=== PATIENT | female | born 1950 | race Caucasian/White ===

== ENCOUNTER 2020-02-06 08:10 | Outpatient (CLI) | payer MEDICARE, SELFPAY ==
--- NOTE | ~2020-02-06 | MM_ITS ---
EXAMINATION: MM screening naren BI w jose carlos HISTORY: Screening TECHNIQUE: Craniocaudal and mediolateral oblique 3-D tomosynthesis images were obtained and synthetic 2-D images were generated. CAD analysis was submitted and interpreted. COMPARISON: 10/18/2018 BREAST PARENCHYMAL COMPOSITION: There are scattered areas of fibroglandular density. FINDINGS: There is no evidence of suspicious mass, calcification, or architectural distortion to sugg est malignancy in either breast. There has been no suspicious interval change. IMPRESSION: 1. No mammographic evidence of malignancy. 2. Recommend routine screening mammography in one year. BI-RADS Category 1: Negative Reviewed, dictated and finalized at location A.
== END 2020-02-06 08:11 | disposition home or self-care (01) ==
LOC: ANHIMG 08:13
PROVIDERS: PCP Family Medicine; Visit Provider Obstetrics & Gynecology
DX: Z12.31 Encounter for screening mammogram for malignant neoplasm of breast (principal)
CPT/HCPCS: 77063; 77067

== ENCOUNTER 2021-01-13 09:47 | Outpatient (RCR) | payer MEDICARE, SELFPAY ==
--- NOTE | 2021-01-13 11:02 | PTOPEVAL ---
Thank you for referring Cyndee Salazar to [facility].? The patient is scheduled to be seen for therapy? ____x/week for ___ weeks. Please review, sign, date and return this plan of care REID. I agree with and certify that the following plan of care is medically necessary. Referring Physician Date Admitting Provider: Attending Provider: Julian Stewart, Referring Provider: *PT Outpatient Evaluation Start: 01/13/21 10:09 Freq: Status: Active Protocol: Document 01/13/21 10:10 [facility] (Rec: 01/13/21 11:01 [facility] [email or web address]) Therapy Assessment Status Assessment Status Assessment Status Evaluation Evaluation Information Problem Diagnosis R shoulder pain, rotator cuff tear Onset 01/06/21 Additional Evaluation Detail quick dash = 43% functionally declined Subjective Information patient reports she is coming Query Text:As Reported By Patient/ to therapy for pain in the R Family shoulder. she reports she has had pain in the shoulder for years. she reports she has difficulty sleeping at night. she reports she has arthritis and a rotator cuff tear. she reports she is trying to avoid surgery as long as she can, but reports she thinks she is going to eventually need in on the R shoulder. she reports she has difficulty lifting more than 10lbs with the R arm . she reports she has difficulty reaching behind her back to wash her back and clasp/unclasp her bra. Prior Level of Function Comments Additional Prior Level of Function patient reports she has had Comments pain in the R shoulder since her original injury back in the early . she reports she has never had therapy for her R shoulder. Pain Assessment Timing of Pain Assessment Timing of Pain Assessment Assessment Pain Scale Pain Scale Used Numeric (1 - 10) Self Report Pain Assessment Right Shoulder(s) Reported Pain Level 0 Pain Frequency Chronic,Intermittent Greatest Pain Intensity 8 Pain Score Pain Score 0: Self Report Interventions Used Interventions Used By Clinicians Activity or ADL's,Education,
--- NOTE | 2021-02-18 10:52 | PTOPEVAL ---
Thank you for referring Cyndee Salazar to [facility].? The patient is scheduled to be seen for therapy? ____x/week for ___ weeks. Please review, sign, date and return this plan of care REID. I agree with and certify that the following plan of care is medically necessary. Referring Physician Date Admitting Provider: Attending Provider: Julian Stewart, Referring Provider: *PT Outpatient Evaluation Start: 01/13/21 10:09 Freq: Status: Active Protocol: Document 02/14/21 10:00 [facility] (Rec: 02/18/21 10:52 [facility] [email or web address]) Therapy Assessment Status Assessment Status Assessment Status Discharge Evaluation Information Problem Diagnosis R shoulder pain, rotator cuff tear Onset 01/06/21 Additional Evaluation Detail quick dash = 59% functionally declined Subjective Information patient reports she has been Query Text:As Reported By Patient/ completing therapy visits and Family doing her HEP at home. she reports she has noticed some improvements, but overall still has pain in the R shoulder. she reports she is having RTC surgery this spring . Pain Assessment Timing of Pain Assessment Timing of Pain Assessment Assessment Pain Scale Pain Scale Used Numeric (1 - 10) Self Report Pain Assessment Right Shoulder(s) Reported Pain Level 1 Greatest Pain Intensity 10 Pain Score Pain Score 1: Self Report Interventions Used Interventions Used By Clinicians Activity or ADL's,Education, Exercise Upper Extremity Range of Motion Scapular/ Shoulder Range of Motion Right Shoulder Flexion - Active 160 Shoulder Flexion - Passive 170 Shoulder Medial Rotation - Active 63 Shoulder Medial Rotation - Active functional reach to the R PSIS Query Text:Reach Behind the Back /buttock with the R hand. patient reports this is most difficult reach. Shoulder Lateral Rotation - Active 95 Shoulder Lateral Rotation - Active functional reach of the R hand Query Text:Reach Behind the Head to the lower cervical/upper thoracic spine with normal speed and no compensated shoulder or trunk posture. Upper Extremity Muscle Strength Testing Scapular/Shoulder Right Shoulder Flexion Strength 4 Good Shoulder Extension Strength 4+ Good + Shoulder Abduction Strength 4- Good - Shoulder Medial Rotation Strength 4+ Good + Shoulder Lateral Rotation Strength
== END 2021-02-14 16:03 | disposition home or self-care (01) ==
LOC: CHSPT 09:47
PROVIDERS: PCP Family Medicine; Visit Provider Orthopaedic Surgery
DX: M75.101 Unspecified rotator cuff tear or rupture of right shoulder, not specified as traumatic (principal)
CPT/HCPCS: 97014; 97110; 97161; G0283

== ENCOUNTER 2021-03-04 09:22 | Outpatient (CLI) | payer MEDICARE, SELFPAY ==
--- NOTE | ~2021-03-04 | MM_ITS ---
EXAMINATION: MM screening naren BI w jose carlos HISTORY: ........... TECHNIQUE: Craniocaudal and mediolateral oblique 3-D tomosynthesis images were obtained and synthetic 2-D images were generated. CAD analysis was submitted and interpreted. COMPARISON: No prior mammogram is available for comparison at this institution. BREAST PARENCHYMAL COMPOSITION: The breasts are almost entirely fatty. FINDINGS: There is no evidence of suspicious mass, calcification, or architectural distortion to sugg est malignancy in either breast. There has been no suspicious interval change. IMPRESSION: 1. No mammographic evidence of malignancy. 2. Recommend routine screening mammography in one year. BI-RADS Category 1: Negative Reviewed, dictated and finalized at location A. Y ASSISTANT
== END 2021-03-04 09:23 | disposition home or self-care (01) ==
PROVIDERS: PCP Family Medicine; Visit Provider Obstetrics & Gynecology
DX: Z12.31 Encounter for screening mammogram for malignant neoplasm of breast (principal)
CPT/HCPCS: 77063; 77067

== ENCOUNTER 2021-08-26 00:16 | Day surgery (SDC) | payer MEDICARE, SELFPAY ==
[2021-08-12 08:41] VITALS: BMI 38.0
[2021-08-26 08:25] VITALS: BP 121/69; PULSE 93; RESP 16; TEMP 36.4; O2SAT 97
[2021-08-26] MEDS: LACTATED RINGERS 1,000 ML 150 ML IV CONT (08:37)
--- NOTE | 2021-08-26 09:09 | WPDANESEPPF ---
Anes - Initial Pre Proc Eval Procedure: Operation Date: 08/26/21 09:30 Proposed Procedures p Screening Colonoscopy - Anjum Choe MD Date/Time: 08/26/21 09:09 Surgeon: Anjum Choe MD Pre Op Diagnosis: neoplasm screening Patient Data Age: 71 Gender: F Height: 1.47 m Weight: 84.6 kg Last Vital Signs Temp 97.6 F 08/26/21 08:25 Pulse 93 08/26/21 08:25 Resp 16 08/26/21 08:25 BP 121/69 08/26/21 08:25 Pulse Ox 97 08/26/21 08:25 Allergies Allergy/AdvReac Type Severity Reaction Status Date / Time codeine Allergy Unknown Nausea, Verified 08/26/21 08:21 dizziness morphine Allergy Unknown Nausea, Verified 08/26/21 08:21 dizziness pseudoephedrine Allergy Unknown Nausea, Verified 08/26/21 08:21 dizziness MEPERIDINE HCL Allergy Unknown Nausea, Uncoded 08/26/21 08:21 dizziness Home Medications Medication Instructions Recorded Confirmed Type alpha lipoic acid 300 mg capsule 300 mg PO DAILY 06/28/20 08/12/21 History aspirin 81 mg chewable tablet 81 mg PO DAILY 06/28/20 08/12/21 History atorvastatin 20 mg tablet 20 mg PO DAILY 06/28/20 08/12/21 History budesonide-formoterol HFA 160 2 puff INHALATION DAILY 06/28/20 08/12/21 History mcg-4.5 mcg/actuation aerosol inhaler cyanocobalamin (vitamin B-12) 1,000 mcg PO MONTHLY 06/28/20 08/12/21 History 1,000 mcg capsule magnesium 200 mg tablet 400 mg PO BID tablet 06/28/20 08/12/21 History niacin 500 mg tablet 500 mg PO DAILY 06/28/20 08/12/21 History omega 5-hhh-wpa-fish oil 1,200 mg 1 cap PO DAILY cap 06/28/20 08/12/21 History (144 mg-216 mg) capsule resveratrol 50 mg capsule 50 mg PO DAILY 06/28/20 08/12/21 History triamterene 37.5 1 cap PO BID 06/28/20 08/12/21 History mg-hydrochlorothiazide 25 mg capsule calcium carbonate 500 mg calcium 1,200 mg PO DAILY tablet 06/30/21 08/12/21 History (1,250 mg) chewable tablet carvedilol 3.125 mg tablet 3.125 mg PO DAILY tablet 06/30/21 08/12/21 History cholecalciferol (vitamin D3) 1,250 7,800 unit PO WEEKLY cap 06/30/21 08/12/21 History mcg (50,000 unit) capsule coenzyme Q10 100 mg capsule 200 mg PO DAILY 06/30/21 08/12/21 History omeprazole 20 mg capsule,delayed 20 mg PO DAILY cap 06/30/21 08/12/21 History release Patient hx anesthesia problems: none Family hx anesthesia problems: none Results Review: All pre-operative results and documents have been reviewed as part of the pre-operative evaluation. ON LICENSE OF [facility] Past Medical History Medical History Allergy-induced asthma Anemia Depression 2016 Diverticulosis 2018 Missed x1 Osteopenia 2010 Tuberculosis 1990 Surgical History Surgical History H/O dilation and curettage History of appendectomy 1975 History of back surgery 1997 History of bilateral knee replacement History of cryosurgery 1975 History of shoulder surgery Previous section x2 S/P cholecystectomy 1975 [place] teeth extracted Family History Family History Other Cervical cancer Carcinoma of colon Mother Hypertension Acute myocardial infarction High cholesterol Father High cholesterol Hypertension Acute myocardial infarction Social History Social History Smoking packs per day: 1 Smoking cigarettes per day: 20.0 Years smoked: 2 Smoking pack-years: 2.00 Smoking status: Former smoker Tobacco type: cigarettes Alcohol intake: current Alcohol use details: rarely Substance use: never Substance use type: does not use Living arrangements: alone Spiritual care concerns: No Anes - Eval Final PreProcedure Day of Procedure 08/26/21 09:09 Patient weight: morbidly obese Heart: regular rate an
--- NOTE | 2021-08-26 09:20 | PM.HPGS ---
History of Present Illness History of Present Illness Consent: Risks, benefits, and alternatives have been discussed and questions answered. Patient agrees to proceed with procedure. Chief complaint: neoplasm screening Narrative: Cyndee Salazar is a 71 year old female with colon polyps 3 years ago. Review of Systems Constitutional: Constitutional: Denies headache(s) and Denies weakness Eyes: Eyes: Denies blurry vision ENT: Reports Normal hearing present, Denies headache(s) and Denies neck pain Cardiovascular: Cardiovascular: Denies chest pain and Denies dyspnea Respiratory: Respiratory: Denies dyspnea Gastrointestinal: Gastrointestinal: Reports no additional gastrointestinal complaints Genitourinary: Genitourinary: Denies dysuria Musculoskeletal: Musculoskeletal: Denies neck pain Integumentary/Breasts: Skin/Breast: Denies dry skin Neurologic: Reports Normal hearing present, Denies headache(s) and Denies weakness Psychiatric: Psychiatric: Denies anxiety Endocrine: Endocrine: Denies change in body appearance Hematologic/Lymphatic: Hematologic/Lymphatic: Denies easy bleeding Allergic/Immunologic: Allergic/Immunologic: Denies urticaria PMF Past Medical History Medical History (Updated 08/26/21 @ 09:20 by Anjum Choe MD) Adenomatous colon polyp Allergy-induced asthma Anemia Depression 2016 Diverticulosis 2018 Missed x1 Osteopenia 2010 Tuberculosis 1990 Surgical History Surgical History H/O dilation and curettage History of appendectomy 1975 History of back surgery 1998 History of bilateral knee replacement History of cryosurgery 1975 History of shoulder surgery Previous section x2 S/P cholecystectomy 1975 [employer] teeth extracted Family History Family History Other Cervical cancer Carcinoma of colon Mother Hypertension Acute myocardial infarction High cholesterol Father High cholesterol Hypertension Acute myocardial infarction Social History Social History Smoking packs per day: 1 Smoking cigarettes per day: 20.0 Years smoked: 2 Smoking pack-years: 2.00 Smoking status: Former smoker Tobacco type: cigarettes Alcohol intake: current Alcohol use details: rarely Substance use: never Substance use type: does not use Living arrangements: alone Spiritual care concerns: No Meds Home Medications and Allergies Home Medications Medication Instructions Recorded Confirmed Type alpha lipoic acid 300 mg capsule 300 mg PO DAILY 06/28/20 08/12/21 History aspirin 81 mg chewable tablet 81 mg PO DAILY 06/28/20 08/12/21 History atorvastatin 20 mg tablet 20 mg PO DAILY 06/28/20 08/12/21 History budesonide-formoterol HFA 160 2 puff INHALATION DAILY 06/28/20 08/12/21 History mcg-4.5 mcg/actuation aerosol inhaler cyanocobalamin (vitamin B-12) 1,000 mcg PO MONTHLY 06/28/20 08/12/21 History 1,000 mcg capsule magnesium 200 mg tablet 400 mg PO BID tablet 06/28/20 08/12/21 History niacin 500 mg tablet 500 mg PO DAILY 06/28/20 08/12/21 History omega 6-bag-eju-fish oil 1,200 mg 1 cap PO DAILY cap 06/28/20 08/12/21 History (144 mg-216 mg) capsule resveratrol 50 mg capsule 50 mg PO DAILY 06/28/20 08/12/21 History triamterene 37.5 1 cap PO BID 06/28/20 08/12/21 History mg-hydrochlorothiazide 25 mg capsule calcium carbonate 500 mg calcium 1,200 mg PO DAILY tablet 06/30/21 08/12/21 History (1,250 mg) chewable tablet carvedilol 3.125 mg tablet 3.125 mg PO DAILY tablet 06/30/21 08/12/21 History cholecalciferol (vitamin D3) 1,250 7,800 unit PO WEEKLY cap 06/30/21 08/12/21 History mcg (50,000 unit) capsule coenzyme Q10 100 mg capsule 200 mg PO DAILY 06/30/21 08/12/21 History omeprazole 20 mg capsule,delayed 20 mg
[2021-08-26 09:51] VITALS: BP 101/53; PULSE 70; RESP 21; O2SAT 100
[2021-08-26 10:01] VITALS: BP 114/64; PULSE 77; RESP 21; O2SAT 99
[2021-08-26 10:11] VITALS: BP 128/63; PULSE 58; RESP 19; O2SAT 100
== END 2021-08-26 10:20 | disposition home or self-care (01) ==
PROVIDERS: PCP Family Medicine; Visit Provider Internal Medicine Gastroenterology
PROC: 0DJD8ZZ Inspection of Lower Intestinal Tract, Via Natural or Artificial Opening Endoscopic (ICD-10-PCS; CPT 45378; principal; 2021-08-26 09:30)
DX: Z12.11 Encounter for screening for malignant neoplasm of colon (principal); D12.0 Benign neoplasm of cecum; D12.3 Benign neoplasm of transverse colon; J45.909 Unspecified asthma, uncomplicated; K57.30 Diverticulosis of large intestine without perforation or abscess without bleeding; K64.8 Other hemorrhoids; M85.80 Other specified disorders of bone density and structure, unspecified site; F32.A Depression, unspecified; Z86.11 Personal history of tuberculosis; Z96.653 Presence of artificial knee joint, bilateral; Z87.891 Personal history of nicotine dependence
CPT/HCPCS: 45385; 88305; J2704; J7120

== ENCOUNTER 2022-12-26 06:57 | Outpatient (CLI) | payer MEDICARE, SELFPAY ==
--- NOTE | ~2022-12-26 | MM_ITS ---
EXAMINATION: MM screening naren BI w jose carlos HISTORY: Screening mammogram TECHNIQUE: Craniocaudal and mediolateral oblique 3-D tomosynthesis images were obtained and synthetic 2-D images were generated. CAD analysis was submitted and interpreted. COMPARISON: 03/04/2021, 02/06/2020 bilateral screening mammogram examinations BREAST PARENCHYMAL COMPOSITION: The breasts are almost entirely fatty. FINDINGS: There is no evidence of suspicious mass, calcification, or architectural distortion to sugg est malignancy in either breast. There has been no suspicious interval change. IMPRESSION: 1. No mammographic evidence of malignancy. 2. Recommend routine screening mammography in one year. BI-RADS Category 1: Negative Reviewed, dictated and finalized at location A.
== END 2022-12-26 06:58 | disposition home or self-care (01) ==
LOC: ANHIMG 07:03
PROVIDERS: PCP Family Medicine; Visit Provider Obstetrics & Gynecology
DX: Z12.31 Encounter for screening mammogram for malignant neoplasm of breast (principal)
CPT/HCPCS: 77063; 77067

== ENCOUNTER 2023-03-29 07:51 | Outpatient (CLI) | payer MEDICARE, SELFPAY ==
--- NOTE | ~2023-03-29 | DEXA_ITS ---
Bone Density Report Name: PATRICK DUTTON Age: 72 Sex: Female Ethnicity: White Date of : 1950 Indication: postmenopausal; screening for osteoporosis; height loss; prior fracture; Referring Provider: CLIFF, JOE Study: Bone densitometry was performed. Exam Date: March 29, 2023 Accession number: [id number] Bone Density: Region BMD T-score Z-score Classification AP Spine(L1-L4) 0.887 -1.5 0.9 Osteopenia Femoral Neck (Left) 0.651 -1.8 0.3 Osteopenia Total Hip (Left) 0.843 -0.8 1.0 Normal Femoral Neck (Right) 0.659 -1.7 0.4 Osteopenia Total Hip (Right) 0.755 -1.5 0.2 Osteopenia Total Hip Mean 0.799 -1.2 0.6 Osteopenia World Health Organization criteria for BMD impression classify patients as: Normal (T-score at or above -1.0), Osteopenia (T-score between -1.0 and -2.5), or Osteoporosis (T-score at or below -2.5). 10-year Fracture Risk: FRAX not reported because: Prior hip or vertebral fracture Clinical Information Provided by Patient: Have had a previous hip or vertebral fracture Has had a low trauma fracture Has used the following medications: Vitamin D, Calcium Patient maximum height was 59.5 Menopause Age: 48 No regular weight bearing exercise Does not regularly consume dairy products Drinks caffeinated beverages Onset of menses at age 10 Number of children 2 Impression: The patient has low bone mass, based on the Left Femoral Neck T-score. The patient has risk factors, including: previous fracture. Discussion: INCREASED RISK OF FRACTURE DUE TO HISTORY OF FRACTURE. The patient's previous fracture puts the patient at high risk of a future fracture. In untreated patients, the risk of osteoporotic fracture increases approximately two-fold for each 1.0 SD decrease in T-score. Low bone density is not the only risk factor for fracture; also consider factors such as patient's age, frailty or poor health, risk of falling, risk of injury, previous osteoporotic fracture, family history of osteoporosis, cigarette smoking, low body weight, etc. Not everyone with a low trauma fracture has osteoporosis; osteomalacia and other metabolic bone disorders should also be considered. Patients who have osteoporosis should be evaluated for specific diseases and conditions (secondary causes) that may cause or contribute to bone loss and fracture risk. National Osteoporosis Foundation (NOF) recommends pharmacologic intervention for patients with a prior hip or vertebral fracture regardless of BMD T-score. The patient should follow a healthful lifestyle (good nutrition with adequate calcium and vitamin D, and appropriate weight-bearing exercise). Follow-Up: Consider a repeat BMD and Vertebral Fracture Assessment (VFA) exam in 2 years or sooner if medically necessary, to reassess this patient's status.
== END 2023-03-29 07:52 | disposition home or self-care (01) ==
PROVIDERS: PCP Family Medicine; Visit Provider Family Medicine
DX: M81.0 Age-related osteoporosis without current pathological fracture (principal); M85.88 Other specified disorders of bone density and structure, other site; M85.852 Other specified disorders of bone density and structure, left thigh; M85.851 Other specified disorders of bone density and structure, right thigh
CPT/HCPCS: 77080

== ENCOUNTER 2023-12-31 07:41 | Outpatient (CLI) | payer MEDICARE, SELFPAY ==
--- NOTE | ~2023-12-31 | MM_ITS ---
EXAMINATION: MM screening [facility] BI w jose carlos HISTORY: Screening TECHNIQUE: Craniocaudal and mediolateral oblique 3-D tomosynthesis images were obtained and synthetic 2-D images were generated. CAD analysis was submitted and interpreted. COMPARISON: Comparison to multiple prior studies sequentially, with oldest reviewed study dated 10/18. BREAST PARENCHYMAL COMPOSITION: Not dense: There are scattered areas of fibroglandular density. FINDINGS: There is no evidence of suspicious mass, calcification, or architectural distortion to sugg est malignancy in either breast. There has been no suspicious interval change. IMPRESSION: 1. No mammographic evidence of malignancy. 2. Recommend routine screening mammography in one year. BI-RADS Category 1: Negative Reviewed, dictated and finalized at location B.
== END 2023-12-31 07:42 | disposition home or self-care (01) ==
LOC: CHSIMG 07:44
PROVIDERS: PCP Family Medicine; Visit Provider Obstetrics & Gynecology
DX: Z12.31 Encounter for screening mammogram for malignant neoplasm of breast (principal)
CPT/HCPCS: 77063; 77067

== ENCOUNTER 2024-04-03 12:20 | Outpatient (CLI) | payer MEDICARE, SELFPAY ==
--- NOTE | ~2024-04-03 | XR_ITS ---
AP and lateral views of the right hip Clinical history: Pain Findings: No acute fracture or dislocation is seen. Osseous alignment is anatomic. There is mild dege nerative change of the right hip joint. Soft tissues are unremarkable. Impression: Mild degenerative change of the right hip joint. Reviewed, dictated and finalized at location . ICIAN PRESIDENT Impression: Mild degenerative change of the right hip joint.
== END 2024-04-03 12:21 | disposition home or self-care (01) ==
LOC: CHSIMG 12:21
PROVIDERS: PCP Family Medicine; Visit Provider Family Medicine
DX: M25.551 Pain in right hip (principal)
CPT/HCPCS: 73502

== ENCOUNTER 2024-08-14 16:34 | Outpatient (CLI) | payer MEDICARE, SELFPAY ==
--- NOTE | ~2024-08-14 | XR_ITS ---
XR foot RT min 3V Ordering provider: Emily Singh, History: . Right leg pain, PAIN IN LATERAL FOOT, NKI . Comparison: None. FINDINGS: BONES: Fracture at the base of the fifth metatarsal bone most likely old. Clinical correlation and fo llow-up advised. Postoperative changes in the first, second and fifth metatarsal bones. Hammertoes ar e noted. JOINT SPACES: Narrowing of the proximal and distal interphalangeal joints. No tarsal coalition. Osteo arthritic changes of the ankle joint. Osteoarthritic changes of the talonavicular joint. SOFT TISSUES: Normal. Calcaneus spur. IMPRESSION: Fracture which is most likely old at the base of the fifth metatarsal bone. Clinical correlation advi sed. Polyarticular osteoarthritic changes. Reviewed, dictated and finalized at location A. IMPRESSION: Fracture which is most likely old at the base of the fifth metatarsal bone. Cli nical correlation advised. Polyarticular osteoarthritic changes.
--- NOTE | ~2024-08-14 | US_ITS ---
EXAMINATION: US venous doppler LE RT DATE: 08/14/2024 17:08 INDICATION: Right leg pain . TECHNIQUE: Grayscale images without and with compression and Doppler images of the right lower extrem ity veins were obtained. COMPARISON: None FINDINGS: The right common femoral vein, profunda (deep) femoral vein, femoral vein, popliteal vein, peroneal v ein, posterior tibial veins, gastrocnemius vein, and greater saphenous vein are patent. IMPRESSION: Patent right lower extremity veins. No evidence of deep venous thrombosis. Reviewed, dictated and finalized at location K.
--- OUTSIDE RECORDS SUMMARY | 2024-08-14 17:56 | XMS_ITS | Encounter Summary ---
Author Organization [facility] Address [address] [place] [id number] Care Team Providers Care Child And Adolescent Psychologist Name Role Phone Helio Hunter MD Primary Care Provider Porfirio Restrepo MD Unavailable [phone] Columba Ryder APRN, BRAILLE TRANSCRIBER-C Unavailable Julian Stewart MD Unavailable [phone] Kin Gutiérrez MD Unavailable Encounter Details Date Type Department Care Team (Late st Contact Info) Description 08/10/2023 Abstract [facility] [address] [place] [id number] Porfirio Restrepo MD [address] [place] [address] Social History Tobacco Use Types Packs/Day Years Used Date Smoking Tobacco: Former Cigarettes Q uit: 1970 Smokeless Tobacco: Never Alcohol Use Standard Drinks/Week Comments Never 0 (1 standard drink = 0.6 oz pur e alcohol) AUDIT-C Answer Date Recorded Q1: How often do you have a drink containing alc ohol? Never 12/04/2019 Average Number of Drinks Not on file 020 Q3: How often do you have si x or more drinks on one occasion? Never 12/04/2019 Comments Unknown Sex and Gender Information Value Date Recorded Sex Assigned at Not on file Legal Sex Female 10:25 PM CDT Gender Identity Not on file Sexual Orientation Not on file documented as of this encounter Functional Status * Calculated C-SSRS Risk Score (Lifetime/Recent) Answer Date of Assessment Author Status No Risk Indicated 08/10/2023 9:11 AM CDT Jad Manzo RN Active * [place] Suicide Severity Rating Scale (Screener/Recent Self-Report) Question Answer Date of Assessment Author Status 1. Wish to be (Past 1 Month) No 08/10/2023 9:11 AM CDT Ebony Manzo RN Active 2. Non-Specific Active Suicidal Thoughts (Past 1 Month) No 08/10/2023 9:11 AM CDT Ebony Manzo RN Active 6. Suicidal Behavior (Lifetime) No 08/10/2023 9:11 AM MARGARETT Ebony Manzo RN Active documented as of this encounter Plan of Treatment Not on file documented as of this encounter Procedures Procedure Name Priority Date/Time Associated Diagnosis Comments HEMOGLOBIN, GLYCOSYLATED Routine 08/04/2023 VITAMIN B-12 Routine 08/04/2023 IRON Routine 08/04/2023 documented in this encounter Results * IRON (08/04/2023) Pathologist [facility] IRON 45 27 - 139 IRON SATURATION 13 15 - 55 UNBOUND IRON BINDING CAPACITY 295 118 - 369 IRON BINDING CAPACITY 340 250 - 450 08/04/2023 us Default History Genericprovider LABORATORY Final Result * VITAMIN B-12 (08/04/2023) Pathologist [facility] VITAMIN B12 S/P/B 1,296 232 - 1,245 08/04/2023 us Default History Genericprovider LABORATORY Final Result * HEMOGLOBIN, GLYCOSYLATED (08/04/2023) HGB A1C 6.0 4.8 - 5.6 % 08/04/2023 us Default History Genericprovider LABORATORY Final Result documented in this encounter Visit Diagnoses Not on filedocumented in this encounter Care Teams Child And Adolescent Psychologist Relationship Specialty Start Date End Date Helio Hunter MD [address] [place] [address] PCP - General FAMILY PRACTICE 11/29/19 Porfirio Restrepo MD [address] [place] [address] Consulting Physician CARDIOVASCULAR DISEASE 11/29/19 Columba Ryder, AIRPORT OPERATIONS COORDINATOR, BRAILLE TRANSCRIBER-C [address] [facility] [address] [place] [address] NURSE PRACTITIONER 05/31/20 Julian Stewart MD [address] [place], [place] [id number] Surgeon ORTHOPAEDIC SURGERY 02/17/21 Kin Gutiérrez MD [address] [place] [address] Consulting Physician INTERVENTIONAL CARDIOLOGY 12/07/23 documented as of this encounter
--- OUTSIDE RECORDS SUMMARY | 2024-08-14 17:56 | XMS_ITS | Encounter Summary ---
Author Organization [facility] Address [address] [place] [address] Phone Care Team Providers Care Marketing Compliance Manager Name Role Phone Helio Hunter MD Primary Care Provider Encounter Details Date Type Department Care Team (Latest Contact Info) Description 10/13/2019 Orders Only [facility] Scanning, Provider Social History Tobacco Use Types Packs/Day Years Used Date Smoking Tobacco: Former Smokeless Tobacco: Never Comments No Sex and Gender Information Value Date Recorded Sex Assigned at Not on file Legal Sex Female 8:00 PM AIR CHIEF MARSHAL Gender Identity Not on file Sexual Orientation Not on file documented as of this encounter Plan of Treatment Not on file documented as of this encounter Procedures Procedure Name Priority Date/Time Associated Diagnosis Comments SCAN - LABS 10/13/2019 documented in this encounter Results * SCAN - LABS (10/13/2019) us Provider Scanning Final Result documented in this encounter Visit Diagnoses Not on filedocumented in this encounter Care Teams Marketing Compliance Manager Relationship Specialty Start Date End Date Helio Hunter MD PCP - General Family Medicine 10/25/18 documented as of this encounter
--- OUTSIDE RECORDS SUMMARY | 2024-08-14 17:56 | XMS_ITS | Referral Summary ---
Author Organization [facility] Address [address] [place] [address] Care Team Providers Care Trimming Inspector Name Role Phone Helio Hunter MD Primary Care Provider Encounters Date Type Department Care Team Description 07/14/2024 Telephone [facility] Cardiology [address] [place] [address] [place] [address] [place] [address] Kev Snell MD 07/05/2024 3:45 PM CDT Lab [facility] Endocrinology Metabolism and Lipid [address] [place] [address] [place] [address] [place] [address] Coronary artery calcification; Family history of premature CAD; Iron deficiency 07/05/2024 Results Follow-Up [facility] Cardiology [address] [place] [address] [place] [address] [place] [address] Kev Snell MD 07/05/2024 2:30 PM CDT Office Visit [facility] Cardiology [address] [place] [address] [place] [address] [place] [address] Kev Snell MD Coronary artery calcification (Primary Dx); Iron deficiency; Family history of premature CAD; Primary hypertension from Last 3 Months Allergies Active Allergy Reactions Criticality Noted Date Comments Codeine Nausea only,Unknown, Other (See comments) Low 07/09/2008 Meperidine Nausea only,Dizziness,Nausea Only Low Morphine Nausea only,Dizziness,Nausea Only Low Oxycodone-Acetaminophen Other (See comments) Low Reaction: Pseudoephedrine Nausea only,Dizziness,Nausea Only Low 10/24/2010 Medications acetylcarnitine 500 mg capsule Activ e alpha lipoic acid 300 mg capsule Active calcium carbonate-vitam in D3 (CALCIUM 500 + D) 1,250mg (500mg elemental) - 200 units per tablet 1200mg-ddaily Active coenzyme Q10 200 mg capsule Take 1 capsule (200 mg total) by mouth daily Active estradiol (ESTRACE) 0.01 % (0.1 mg/gram) vaginal cream Insert into the vagina. Active auitt-5-pai-epa -dpa-fish oil 1,050-1,200 mg capsule Take 1 capsule by mouth daily Active magnesium oxide 400 mg capsule Activ e niacin 500 mg tablet Active triamterene-hyd roCHLOROthiazid e (triamterene-hy droCHLOROthiazi de) 37.5-25 mg per tablet/capsule Take 1 tablet/capsule by mouth daily Active aspirin 81 mg tablet Take 1 tablet (81 mg total) by mouth daily. 30 tablet 11 10/27/19 18 Active albuterol HFA (PROVENTIL HFA,VENTOLIN HFA,PROAIR HFA) 90 mcg/actuation inhaler INL 2 PFS PO Q 4 TO 6 H PRN 0 10/07/19 19 Active amoxicillin (amoxicillin) 500 mg tablet/capsuleI ndications:Prop hylaxis, Medical Take 1 tablet/capsule (500 mg total) by mouth as directed TAKE 4 PILL 1 HOUR BEFORE DENTAL APPOINTMENT. 12 tablet/capsu le 05/22/19 21 Active buPROPion XL (WELLBUTRIN XL) 300 mg 24 hr tablet Take 1 tablet (300 mg total) by mouth daily 05/16/19 21 Active cyanocobalamin (Vitamin B-12) 1,000 mcg/mL injectionIndica tions:Iron deficiency anemia, unspecified iron deficiency anemia type INJECT INTRAMUSCULARLY 1ML INSTRUCTED EVERY 30 DAYS (DISCARD 28 DAYS AFTER FIRST USE) 3 mL 03/26/20 22 Active famotidine (PEPCID) 20 mg tablet Take 1 tablet (20 mg total) by mouth daily Active Breo Ellipta 200-25 mcg/dose diskus inhaler Inhale 1 puff daily 24 Active vit A/vit C/vit E/zinc/copper (PRESERVISION AREDS ORAL) Take 1 tablet by mouth 2 (two) times a day Active Ozempic 2 mg/dose (8 mg/3 mL) pen injector injection Inject 2 mg under the skin once a week 06/29/19 25 Active furosemide (LASIX) 20 mg tablet Take 1 tablet (20 mg total) by mouth daily as needed 03/09/20 22 Active omega3/dha/epa/ fish oil/vit D3 (kb-6-cwo-epa-f vanessa oil-vit D3) 120 mg-180 mg -1,000 unit capsule Take 180 Units by mouth daily Active ascorbic acid (VITAMIN C) 100 mg tablet Take 2 tablets (200 mg total) by mouth daily Active atorvastatin (LIPITOR) 20 mg tablet Take 1 tablet (20 mg total) by mouth daily 90 tablet 3 07/15/19 25 Active carvediloL (COREG) 3.125 mg tablet Take 1 tablet (3.125 mg total) by mouth 2 (two) times a day 180 tablet 3 07/15/19 25 Active Active Problems Problem Noted Date Diagnosed Date Iron deficiency anemia, unspecified 12/07/2018 Abnormal findings on diagnostic imaging of breas t 11/09/2018 Axillary adenopathy 11/09/2018 Social History Tobacco Use Types Packs/Day Years Used Date Smoking Tobacco: Former Smokeless Tobacco: Never Comments No Sex and Gender Information Value Date Recorded Sex Assigned at Not on file Legal Sex Female 8:00 PM SLIPMAN Gender Identity Not on file Sexual Orientation Not on file Last Filed Vital Signs Vital Sign Reading Time Taken Comments Blood Pressure 128/84 07/05/2024 2:25 PM CDT Pulse 83 07/05/2024 2:25 PM CDT Temperature 36.2 C (97.1 F) 07/01/2021 10:06 AM SLIPMAN Respiratory Rate 16 07/01/2021 10:06 AM SLIPMAN Oxygen Saturation 96% 07/05/2024 2:25 PM CDT Inhaled Oxygen Concentration - - Weight 77.4 kg (170 lb 9.6 oz) 07/05/2024 2:25 P M CDT Height 142.2 cm (4' 8 ) 07/05/2024 2:25 PM CDT Body Mass Index 38.25 07/05/2024 2:25 PM CDT Plan of Treatment Not on file Procedures Procedure Name Priority Date/Time Associated Diagnosis Comments FERRITIN Routine 07/05/2024 3:49 PM CDT Iron deficiency LIPOPROTEIN A (LPA) Routine 07/05/2024 3:49 PM CDT Coronary artery calcification Family history of premature CAD ECG 12-LEAD Routine 07/05/2024 2:21 PM CDT Coronary artery calcification SCREENING MAMMOGRAM BILATERAL W CARYN Schedule Routine, Read Routine (OP Routine) 02/28/2018 8:56 AM SLIPMAN Encounter for screening mammogram for malignant neoplasm of breast BONE MINERAL DENSITY 12/24/2014 from Last 3 Months or Most Recently Relevant to Health Maintenance Results * Lipoprotein a (LPa) (07/05/2024 3:49 PM CDT) Pathologist [facility] Lipoprotein (A) 15.7 <=75.0 nmol/L [facility] Comment: An LP(a) level >100 nmol/L is considered an atherosclerotic cardiovascular disease (ASCVD) risk-enhancing factor by the National Lipid Association and corresponds to the 80th population percentile in Caucasians. The corresponding 80th population percentile in -Americans is 150 nmol/L, but it is currently unclear whether a different risk threshold should be applied (J Clin Lipidololgy 2019; 13:374-392). This test was developed using a commercially available kit and its performance characteristics have been determined by [facility]. This assay in units of nmol/L has not been cleared or approved by the FDA, although they are provided by the crystal lapper and widely accepted as the preferred units for reporting. [facility] is regulated under CLIA as qualified to perform high-complexity testing. Blood 07/05/2024 3:49 PM CDT 07/05/2024 4:11 PM CDT us Kev Snell MD LAB BLOOD ORDERABLES Final Re sult [facility] * Ferritin (07/05/2024 3:49 PM CDT) Ferritin 66.1 10.0 - 291.0 ng/mL [facility] Blood 07/05/2024 3:49 PM CDT 07/05/2024 4:11 PM CDT us Kev Snell MD LAB BLOOD ORDERABLES Final Re sult [facility] * ECG 12 lead (07/05/2024 2:21 PM CDT) us Kev Snell MD ECG ORDERABLES Edited Result - Final * Screening Mammogram Bilateral W Caryn (02/28/2018 8:56 AM SLIPMAN) Anatomical Region Laterality Modality Breast Bilateral Digital Radiogra phy Narrative 03/03/2018 2:09 PM SLIPMAN Mammogram Technique: Bilateral Digital Breast Tomosynthesis, Bilateral C-view 2D Screening mammogram. Views obtained: bilateral craniocaudal and bilateral mediolateral oblique. Computer Aided Detection was performed. Mammogram Findings: The present examination has been compared to prior imaging studies performed at [facility] on 11/26/2014, 12/02/2015 and 12/04/2016. There are scattered areas of fibroglandular density. There is no suspicious abnormality in either breast. Impression: Annual screening mammography is recommended. OVERALL FINAL ASSESSMENT: BI-RADS CATEGORY 1: Negative. Procedure Note Ernestina Callahan MD - 03/03/2018 Mammogram Technique: Bilateral Digital Breast Tomosynthesis, Bilateral C-view 2D Screening mammogram. Views obtained: bilateral craniocaudal and bilateral mediolateral oblique. Computer Aided Detection was performed. Mammogram Findings: The present examination has been compared to prior imaging studies performed at [facility] on 11/26/2014, 12/02/2015 and 12/04/2016. There are scattered areas of fibroglandular density. There is no suspicious abnormality in either breast. Impression: Annual screening mammography is recommended. OVERALL FINAL ASSESSMENT: BI-RADS CATEGORY 1: Negative. Steff MOLINA IMG MAMMO PROCEDURES Final Result * BONE MINERAL DENSITY (12/24/2014) Anatomical Region Laterality Modality Radiographic Shannan ging Narrative 12/24/2014 Ordered by an unspecified provider. us Historical Provider MD ACEVES DXA PROCEDURES Final Result from Last 3 Months or Most Recently Relevant to Health Maintenance Insurance A[employer] MEDICARE [facility] MEDICARE Address: [facility] [address] [place] [address] UHC MEDICARE ADVANTAGE Care Teams Trimming Inspector Relationship Specialty Start Date End Date Helio Hunter MD PCP - General Family Medicine 10/25/18
--- OUTSIDE RECORDS SUMMARY | 2024-08-14 17:56 | XMS_ITS | Clinical Summary ---
Author Organization [facility] Address [address] [place] [address] Care Team Providers Care Repairer Evaporator Name Role Phone Helio Hunter MD Primary Care Provider [phone] Source Comments [facility],non-owned Affiliates and Associated Physician Practices is amultiple site organization consisting of ambulatory clinics and hospital sitesin [place], [place], [place] and [place]. This disclosure is being madepursuant to the Care Everywhere program and may not contain all information available regarding this patient. Last updated 18.[facility] Allergies Active Allergy Reactions Criticality Noted Date Comments Codeine 10/24/2010 Meperidine Dizziness,Nausea and/or Vomiting,Unknown Low 10/24/2010 Morphine 10/24/2010 Oxycodone-Acetaminophen Other Low 03/02/2022 Reaction: Reaction: Pseudoephedrine Sulfate 10/24/2010 Medications * Be aware that medications may not be up to date on this document. Alwaysverify current medications with the patient. triamterene-hy drochlorothiaz alessia (DYAZIDE) 37.5-25 MG capsule Take 1 (one) capsule by mouth once daily Active fexofenadine (TANESHA) 30 MG tablet Take 2 (two) tablets by mouth 2 times daily Active calcium carbonate (CALTRATE) 600 MG tablet Take 1 (one) tablet by mouth 3 times daily Active vitamin D, ergocalciferol , (DRISDOL) 45529 UNIT capsule Take 1 (one) capsule by mouth every 7 days Active magnesium oxide (MAG-OX) 400 MG tablet Take 1 (one) tablet by mouth once daily Active atorvastatin (LIPITOR) 20 MG tablet Take 1 (one) tablet by mouth at bedtime Active Acetylcarnitin e HCl (Usidjl-W-Vgge itine HCl) POWD Ppysoq-C-Zsfgvriop A ctive SYRINGE-NEEDLE , DISP, 3 ML (B-D 3CC LUER-LUNA SYR 26GX5/8 ) 26G X 5/8 3 ML MISC BD Luer-Luna Syringe 3 mL 26 x 5/8 Active Calcium Carb-Cholecalc iferol 600-10 MG-MCG Calcium 600 + D(3) A ctive vitamin D3 (Cholecalcifer ol) 25 MCG (1000 UNITS) tablet Take 8 (eight) tablets by mouth once daily Active Coenzyme Q10 (Co Q-10) 100 MG Co Q-10 Active Grape Seed 100 MG Grape Seed Active Magnesium 100 MG magnesium Active budesonide-for moterol (Symbicort) 160-4.5 MCG/ACT inhaler Symbicort 160 mcg-4.5 mcg/actuation HFA aerosol inhaler Active Resveratrol 100 MG capsule Take 1 (one) capsule by mouth once daily Active aspirin EC (Ecotrin) 81 MG tablet Take 1 (one) tablet by mouth once daily Active buPROPion XL 24hr (Wellbutrin-XL ) 300 MG tablet 2 Active metoprolol succinate XL 24hr (Toprol XL) 25 MG tablet Take 1 (one) tablet by mouth once daily 2 Active cyanocobalamin (Vitamin B-12) injection cyanocobalamin (vit B-12) 1,000 mcg/mL injection solution 2 Active B-D 3CC LUER-LUNA SYR 25GX1 25G X 1 3 ML MISC USE MONTHLY 2 Active Alpha-Lipoic Acid 300 MG Active Menno-3 Fatty Acids (Menno-3 Fish Oil) 500 MG Take 1,200 mg by mouth once daily Active omeprazole (PriLOSEC) 20 MG capsule omeprazole 20 mg capsule,delayed release 2 Active albuterol (Proventil;Gilles tolin) (2.5 MG/3ML) 0.083% nebulizer solution albuterol sulfate 2.5 mg/3 mL (0.083 %) solution for nebulization Active furosemide (Lasix) 20 MG tablet 2 Active Active Problems No known active problems Family History Medical History Relation Name Comments Cancer Brother Sleep Disorder - Sleep apnea Brother CPAP Sleep Disorder - Other Father big s norer Cancer Paternal Grandfather Cancer Paternal Grandmother Sleep Disorder - Sleep apnea Sister CPAP Relation Name Status Comments Brother Alive Father Paternal Grandfather Paternal Grandmother Sister Alive Social History Tobacco Use Types Packs/Day Years Used Date Smoking Tobacco: Former Cigarettes 1 5 1 966 - 1970 Smokeless Tobacco: Never Tobacco Cessation:Counseling Given: No Alcohol Use Standard Drinks/Week Comments Yes 0 (1 standard drink = 0.6 oz pur e alcohol) infrequent Comments Unknown Sex and Gender Information Value Date Recorded Sex Assigned at Not on file Legal Sex Female 7:32 AM LAPEL PADDER Gender Identity Not on file Sexual Orientation Not on file 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, 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 Not on file Not on file Not on file Last Filed Vital Signs Vital Sign Reading Time Taken Comments Blood Pressure 126/76 06/01/2022 12:58 PM LAPEL PADDER Pulse 77 06/01/2022 12:58 PM LAPEL PADDER Temperature 36.9 C (98.4 F) 09/20/2018 7:51 AM CDT Respiratory Rate 11 09/20/2018 9:33 AM CDT Oxygen Saturation 99% 09/20/2018 9:31 AM CDT Inhaled Oxygen Concentration - - Weight 91.2 kg (201 lb) 06/01/2022 12:58 PM LAPEL PADDER Height 154.9 cm (5' 1 ) 06/01/2022 12:58 PM LAPEL PADDER Body Mass Index 37.98 06/01/2022 12:58 PM LAPEL PADDER Plan of Treatment Health Maintenance Due Date Last Done Comments BONE DENSITY TESTING 1950 HEPATITIS C SCREENING 04/10/1966 DTAP/TDAP/TD VACCINES (1 - Tdap) 1967 PNEUMOCOCCAL VACCINE 50+ (1 of 1 - PCV) 1998 ZOSTER VACCINE (1 of 2) 1998 Respiratory Syncytial Virus (RSV) Vaccine Pt: or over 60 yrs (1 - 1-dose 75+ series) 2023 COVID-19 VACCINE (2023-2 5 season) 2023 DEPRESSION SCREENING 04/26/2024 MEDICARE AWV CALENDAR YEAR 2024 INFLUENZA VACCINE (Season Ended) 2024 02/06/2016, 04/26/2012 HEPATITIS B VACCINE Aged Out No longe r eligible based on patient's age to complete this topic HIB VACCINE Aged Out No longer eligi ble based on patient's age to complete this topic HPV VACCINE Aged Out No longer eligi ble based on patient's age to complete this topic MENINGOCOCCAL (Group B) VACCINE SHARED DECISION-MAKING Aged Out No longer eligible based on patient's age to complete this topic MENINGOCOCCAL GROUPS A/C/Y/W VACCINE Aged Out No longer eligible b ased on patient's age to complete this topic Insurance [facility] MANAGED MEDICARE [place] [address] Advance Directives Documents on File Type Date Recorded 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
--- OUTSIDE RECORDS SUMMARY | 2024-08-14 17:56 | XMS_ITS | Encounter Summary ---
Author Organization [facility] Address [address] [place] [address] Care Team Providers Care New Grad Rn Name Role Phone Helio Hunter MD Primary Care Provider Porfirio Restrepo MD Unavailable [phone] Columba Ryder APRN, [place] MACHINE OPERATOR-C Unavailable [phone] Julian Stewart MD Unavailable [phone] Kin Gutiérrez MD Unavailable Encounter Details Date Type Department Care Team (Late st Contact Info) Description 07/29/2023 Hospital Orders Only [facility] Pre/Post [address] [place] [address] Porfirio Restrepo MD [address] [place] [address] Social History Tobacco Use Types [...] on file documented as of this encounter Visit Diagnoses Not on filedocumented in this encounter Care Teams New Grad Rn Relationship Specialty Start Date End Date Helio Hunter MD [address] [place] [address] PCP - General FAMILY PRACTICE 11/29/19 Porfirio Restrepo MD [address] [place] [address] Consulting Physician CARDIOVASCULAR DISEASE 11/29/19 Columba Ryder, SEW OUT OPERATOR, [place] MACHINE OPERATOR-C [address] [facility] [address] [place] [address] NURSE PRACTITIONER 05/31/20 Julian Stewart MD [address] [place] [address] Surgeon ORTHOPAEDIC SURGERY 02/17/21 Kin Gutiérrez MD [address] [place] [address] Consulting Physician INTERVENTIONAL CARDIOLOGY 12/07/23 documented as of this encounter
--- OUTSIDE RECORDS SUMMARY | 2024-08-14 17:56 | XMS_ITS | Encounter Summary ---
Author Organization [facility] Address [address] [place] [address] Phone Care Team Providers Care Academic Services Professional Name Role Phone Helio Hunter MD Primary Care Provider Encounter Details Date Type Department Care Team (Late st Contact Info) Description 07/14/[address] [facility] Cardiology [address] [facility] [address] 8th [place] [address] [place] [address] Kev Snell MD [address] [facility] [address] [place], [place] [id number] Social History Tobacco Use Types Packs/Day Years Used Date Smoking Tobacco: Former Smokeless Tobacco: Never Comments No Sex and Gender Information Value Date Recorded Sex Assigned at Not on file Legal Sex Female 8:00 PM SEXOLOGIST Gender Identity Not on file Sexual Orientation Not on file documented as of this encounter Miscellaneous Notes * Telephone Encounter - Chanelle Mohamud RMA - 07/14/2024 3:44 PM CDT Done * Telephone Encounter - Joann Walker - 07/14/2024 3:20 PM CDT [place] Pt calling to have the following meds sent to [facility] in [place], [place] Atorvastatin 20 mg Carvedilol 3.125 mg documented in this encounter Plan of Treatment Not on file documented as of this encounter Visit Diagnoses Not on filedocumented in this encounter Care Teams Academic Services Professional Relationship Specialty Start Date End Date Helio Hunter MD PCP - General Family Medicine 10/25/18 documented as of this encounter
--- OUTSIDE RECORDS SUMMARY | 2024-08-14 17:56 | XMS_ITS | Clinical Summary ---
Author Organization [facility] Address [address] [place] [address] Phone Care Team Providers Care Director Of Operations Name Role Phone Helio Hunter MD Primary Care Provider [phone] Social History Tobacco Use Types Packs/Day Years Used Date Smoking Tobacco: Never Assessed Comments Unknown Sex and Gender Information Value Date Recorded Sex Assigned at Not on file Legal Sex Female 12:25 PM SENIOR AGRICULTURAL ASSISTANT Gender Identity Not on file Sexual Orientation Not on file Plan of Treatment Health Maintenance Due Date Last Done Comments DEXA Bone Density 1950 Hepatitis C Virus (HCV) Screening 1950 TdaP Immunization 1950 Colonoscopy 1993 Colorectal Cancer Screening 1993 Cologuard 1998 Immunochemical Fecal Occult Blood 1998 Pneumococcal Immunization (5 0+ years) (1 of 1 - PCV) 1998 Zoster Immunization (1 of 2) 1998 Respiratory Syncytial Virus (RSV) Immunization (Adult) (1 - 1-dose 75+ series) 2023 Influenza Immunization (#1) 2023 SARS-COV-2 Immunization ( season) 2023 Hepatitis B Immunization Aged Out No longer eligible based on patient's age to complete this topic Meningococcal Immunization (ACWY) Aged Out No longer eligible based on patient's age to complete this topic Rotavirus Immunization Aged Out No lo nger eligible based on patient's age to complete this topic Care Teams Director Of Operations Relationship Specialty Start Date End Date Helio Hunter MD [address] [place] [address] PCP - General Family Medicine 09/18/16
--- OUTSIDE RECORDS SUMMARY | 2024-08-14 17:56 | XMS_ITS | Encounter Summary ---
Author Organization [facility] Address [address] [place] [address] Phone Care Team Providers Care Hammersmith Helper Name Role Phone Helio Hunter MD Primary Care Provider Encounter Details Date Type Department Care Team (Latest Contact Info) Description 06/05/2021 Orders Only [facility] Scanning, Provider Social History Tobacco Use Types Packs/Day Years Used Date Smoking Tobacco: Former Smokeless Tobacco: Never Comments No Sex and Gender Information Value Date Recorded Sex Assigned at Not on file Legal Sex Female 8:00 PM METALSMITH HELPER Gender Identity Not on file Sexual Orientation Not on file documented as of this encounter Plan of Treatment Not on file documented as of this encounter Procedures Procedure Name Priority Date/Time Associated Diagnosis Comments SCAN - LABS 06/05/2021 documented in this encounter Results * SCAN - LABS (06/05/2021) us Provider Scanning Final Result documented in this encounter Visit Diagnoses Not on filedocumented in this encounter Care Teams Hammersmith Helper Relationship Specialty Start Date End Date Helio Hunter MD PCP - General Family Medicine 10/25/18 documented as of this encounter
--- OUTSIDE RECORDS SUMMARY | 2024-08-14 17:56 | XMS_ITS | Encounter Summary ---
Author Organization [facility] Address [address] [place] [address] Care Team Providers Care Table Setter Name Role Phone Helio Hunter MD Primary Care Provider [phone] Porfirio Restrepo MD Unavailable Columba Ryder APRN, SENIOR SOFTWARE ARCHITECT-C Unavailable Julian Stewart MD Unavailable [phone] Kin Gutiérrez MD Unavailable [phone] Encounter Details Date Type Department Care Team (Late st Contact Info) Description 08/09/2023 Abstract [facility] [address] [place] [address] Porfirio Restrepo MD [address] [place] [address] Social History Tobacco Use Types [...] AM CDT Jad Manzo RN Active * [place] Suicide Severity Rating Scale (Screener/Recent Self-Report) Question [...] Procedure Name Priority Date/Time Associated Diagnosis Comments LIPID PANEL Routine 08/04/2023 VITAMIN D, 25 OH Routine 08/04/2023 documented in this encounter Results * VITAMIN D, 25 OH (08/04/2023) VITAMIN D 25 HYDROXY S/P/B 89.0 30.0 - 100.0 08/04/2023 us Default History Genericprovider LABORATORY Final Result * LIPID PANEL (08/04/2023) CHOLESTEROL 138 100 - 199 HDL 63 >39 TRIGLYCERIDES 89 0 - 149 LDL (CALCULATED) 58 0 - 99 VLDL CALCULATION 17 5 - 40 08/04/2023 us Default History Genericprovider LABORATORY Final Result documented in this encounter Visit Diagnoses Not on filedocumented in this encounter Care Teams Table Setter Relationship Specialty Start Date End Date Helio Hunter MD [address] [place] [address] PCP - General FAMILY PRACTICE 11/29/19 Porfirio Restrepo MD [address] [place] [address] Consulting Physician CARDIOVASCULAR DISEASE 11/29/19 Columba Ryder APRN, SENIOR SOFTWARE ARCHITECT-C [address] [facility] [address] [place] [address] NURSE PRACTITIONER 05/31/20 Julian Stewart MD [address] [place] [address] Surgeon ORTHOPAEDIC SURGERY 02/17/21 Kin Gutiérrez MD [address] [place] [address] Consulting Physician INTERVENTIONAL CARDIOLOGY 12/07/23 documented as of this encounter
--- OUTSIDE RECORDS SUMMARY | 2024-08-14 17:56 | XMS_ITS | Clinical Summary ---
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 Active asbtp-6-dju-epa -dpa-fish oil 1,050-1,200 mg capsule Take 1 [...] 03/09/20 22 Active omega3/dha/epa/ fish oil/vit D3 (vx-5-ptv-epa-f vanessa oil-vit D3) 120 mg-180 mg -1,000 [...] of breas t 11/09/2018 Axillary adenopathy 11/09/2018 Encounters Date Type Department Care Team Description 07/14/2024 Telephone [facility] Cardiology [address] [place] [address] [place] [address] Kev Snell MD 07/05/2024 3:45 PM CDT Lab [facility] Endocrinology Metabolism and Lipid [address] [place] [address] [place] [address] Coronary artery calcification; Family history of premature CAD; Iron deficiency 07/05/2024 2:30 PM CDT Office Visit [facility] Cardiology [address] [place] [address] [place] [address] Kev Snell MD Coronary artery calcification (Primary Dx); Iron deficiency; Family history of premature CAD; Primary hypertension 07/05/2024 Results Follow-Up [facility] Cardiology [address] [place] [address] 8th [place] [address] [place] [address] Kev Snell MD from Last 3 Months Surgical History Surgery Date Site/Laterality Comments FOOT SURGERY Foot Surgery - (Added by TW Conv) KNEE SURGERY Knee Surgery - (Added by Conv) HAND SURGERY Hand Surgery - (Added by Conv) CO DELIVERY ONLY Section Low Transverse - (Added by TW Conv) CO DILATION & CURETTAGE DX&/THER NONOBSTETRIC Dilation And Curettage - (Added by TW Conv) CO BX BREAST NEEDLE CORE W/O IMAGING GUIDANCE SPX Biopsy Breast Percutaneous Needle Core - (Added by TW Conv) STOMACH SURGERY Gastric Surgery - (Added by TW Conv) BREAST BIOPSY 04/26/1983 - 04/25/1984 Left benign FOOT SURGERY 4 HAND SURGERY 4 KNEE SURGERY 12 SECTION 1974 1978 GASTRIC BYPASS 1974 1978 GASTRIC BYPASS 04/26/1976 - 04/25/1977 Medical History Medical History Date Comments Personal history of diseases of the blood and blood-forming organs and certain disorders involving the immune mechanism History of an emia - (Added by TW Conv) Personal history of other di seases of the respiratory system Personal history of asthma - (Added by TW Conv) Personal history of tuberculosis Personal history of tuberculosis - (Added by TW Conv) Personal history of healed t raumatic fracture History of fracture of foot - (Added by TW Conv) Personal history of other di seases of the musculoskeletal system and connective tissue Personal history of rheumato id arthritis - (Added by TW Conv) Overweight Arthritis Family History Medical History Relation Name Comments Cancer Brother Coronary artery disease Brother Coronary artery disease Father Fami ly history of coronary artery disease - (Added by TW Conv) Heart attack Father Family history of heart attack - (Added by TW Conv) Heart failure Father Family history of heart failure - (Added by TW Conv) Hypertension Father Family hx of hy pertension - (Added by TW Conv) Colon cancer Father's Sister Breast cancer Maternal Grandmother Coronary artery disease Mother Fami ly history of coronary artery disease - (Added by TW Conv) Heart attack Mother Family history of heart attack - (Added by TW Conv) Hypertension Mother Family hx of hy pertension - (Added by TW Conv) Skin cancer Mother Stroke Mother Family history of stroke - (Added by TW Conv) Throat cancer Paternal Grandfather Coronary artery disease Sister Relation Name Status Comments Brother Father Father's Sister Maternal Grandmother Mother Paternal Grandfather Sister Social History Tobacco Use Types Packs/Day Years Used Date Smoking Tobacco: Former Smokeless Tobacco: Never Comments No Sex and Gender Information Value Date Recorded Sex Assigned at Not on file Legal 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 Female 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 Gender Identity Not on file Sexual Orientation Not on file Obstetrics History Last Filed Vital Signs Vital Sign Reading Time Taken Comments Blood Pressure 128/84 07/05/2024 2:25 PM CDT Pulse 83 07/05/2024 2:25 PM CDT Temperature 36.2 C (97.1 F) 07/01/2021 10:06 AM RAG WASHER Respiratory Rate 16 07/01/2021 10:06 AM RAG WASHER Oxygen Saturation 96% 07/05/2024 2:25 PM CDT Inhaled Oxygen Concentration - - Weight 77.4 kg (170 lb 9.6 oz) 07/05/2024 2:25 P M CDT Height 142.2 cm (4' 8 ) 07/05/2024 2:25 PM CDT Body Mass Index 38.25 07/05/2024 2:25 PM CDT Plan of Treatment Health Maintenance Due Date Last Done Comments Depression Screening 1950 Fall Risk Assessment 1950 Hepatitis C Screening 1950 DTaP/Tdap/Td Vaccine (1 - Tdap) 04/27/2001 2, 02/09/1994 Well Visit 65+ 2013 Pneumococcal vaccine 65+ (2 of 2 - PPSV23) 03/25/2015 01/28/2015 Osteoporosis Screening-Bone Density Scan 12/24/2016 12/24/2014 Influenza Vaccine (Season Ended) 2024 01/02/2019, 01/24/2018, 12/25/2017, Additional history exists Hepatitis B Screening Completed 03/29/2017 , 11/03/2016, 10/05/2016 Breast Cancer Screening-Mammogram Discontinued 02/28/2018, 12/04/2016, 12/04/2016, Additional history exists Zoster Vaccine Completed 03/03/2019, 11/25, 04/26/2013 Procedures Procedure Name Priority Date/Time Associated Diagnosis Comments FERRITIN Routine 07/05/2024 3:49 PM CDT Iron deficiency LIPOPROTEIN A (LPA) Routine 07/05/2024 3:49 PM CDT Coronary artery calcification Family history of premature CAD ECG 12-LEAD Routine 07/05/2024 2:21 PM CDT Coronary artery calcification SCREENING MAMMOGRAM BILATERAL W CARYN Schedule Routine, Read Routine (OP Routine) 02/28/2018 8:56 AM RAG WASHER Encounter for screening mammogram for malignant neoplasm of breast BONE MINERAL DENSITY 12/24/2014 from Last 3 Months or Most Recently Relevant to Health Maintenance Results * Lipoprotein a (LPa) (07/05/2024 3:49 PM CDT) Lipoprotein (A) 15.7 <=75.0 nmol/L [facility] Comment: An LP(a) level >100 nmol/L is [...] its performance characteristics have been determined by [facility]. This assay in units of nmol/L has not been cleared or approved by the FDA, although they are provided by the bias machine operator helper and widely accepted as the preferred units for reporting. [facility] is regulated under CLIA as qualified to perform high-complexity testing. Blood 07/05/2024 3:49 PM CDT 07/05/2024 4:11 PM CDT Kev Snell MD LAB BLOOD ORDERABLES Final Re sult Performing Organization Address [facility] Co de Phone Number [facility] * Ferritin (07/05/2024 3:49 PM CDT) Ferritin 66.1 10.0 - 291.0 ng/mL [facility] Blood 07/05/2024 3:49 PM CDT 07/05/2024 4:11 PM CDT Kev Snell MD LAB BLOOD ORDERABLES Final Re sult Performing Organization Address [facility] de Phone Number [facility] * ECG 12 lead (07/05/2024 2:21 PM CDT) us Kev Snell MD ECG ORDERABLES Edited Result - Final * Screening Mammogram Bilateral W Caryn (02/28/2018 8:56 AM RAG WASHER) Anatomical Region Laterality Modality Breast Bilateral Digital Radiogra phy Narrative 03/03/2018 2:09 PM RAG WASHER Mammogram Technique: Bilateral Digital Breast Tomosynthesis, Bilateral C-view 2D Screening mammogram. Views obtained: bilateral craniocaudal and bilateral mediolateral oblique. Computer Aided Detection was performed. Mammogram Findings: The present examination has been compared to prior imaging studies performed at [facility] on 11/26/2014, 12/02/2015 and 12/04/2016. There are [...] compared to prior imaging studies performed at [facility] on 11/26/2014, 12/02/2015 and 12/04/2016. There are scattered areas of fibroglandular density. There is no suspicious abnormality in either breast. Impression: Annual screening mammography is recommended. OVERALL FINAL ASSESSMENT: BI-RADS CATEGORY 1: Negative. Steff MOLINA IMG MAMMO PROCEDURES Final Result * BONE MINERAL DENSITY (12/24/2014) Anatomical Region Laterality Modality Radiographic Shannan ging Narrative 12/24/2014 Ordered by an unspecified provider. Historical Provider IMRonnie DXA PROCEDURES Final Result from Last 3 Months or Most Recently Relevant to Health [place] [id number] [facility] [place] [id number] [facility] MEDICARE ADVANTAGE [facility] Address: [address] [address] [place] [id number] Care Teams Auto Fleet Manager Relationship Specialty Start Date End Date Helio Hunter MD PCP - General Family Medicine 10/25/18
--- OUTSIDE RECORDS SUMMARY | 2024-08-14 17:56 | XMS_ITS | Encounter Summary ---
Author Organization [facility] Address [address] [place] [address] Phone Care Team Providers Care Electric Meter Reader Name Role Phone Helio Hunter MD Primary Care Provider Encounter Details Date Type Department Care Team (Late st Contact Info) Description 07/05/2024 Results Follow-Up [facility] Cardiology [address] [place] [address] [place] [address] Kev nSell MD [address] [place] [address] Social History Tobacco Use Types Packs/Day Years Used Date Smoking Tobacco: Former Smokeless Tobacco: Never Comments No Sex and Gender Information Value Date Recorded Sex Assigned at Not on file Legal Sex Female 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
--- OUTSIDE RECORDS SUMMARY | 2024-08-14 17:57 | XMS_ITS | Data Portability ---
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 Plan of Treatment Reminders Order Date Submit Date Provider Last Modified By Organization Details Last Modified Time Details Appointments None recorded. Lab unlisted lab - igp, apt HPV,rfx 16/18,45-1 41376-T 2015 016 DBA_PATCH_ [id number] [facility], [address] [place] [address], [address], 6 04:30:46 vitamin D, 25-hydroxy , total, serum 2015 016 DBA_PATCH_ [id number] [facility], [address] [place] [address], [address], 6 04:30:48 urinalysis complete, reflex culture 2015 016 DBA_PATCH_ [id number] [facility], [address] [place] [address], [address], 6 04:30:57 urinalysis , dipstick 2013 014 In-House Results, For Internal Use Only, Do Not Delete/merge, [id number] 4 21:48:44 vaginal pathogens DNA probe - Bacterial Vaginosis, Gill, and Trich 2013 014 [email or web address] [facility] (Centralized Electronic Ordering - All Locations), Patient Can Go To The Location Of Their Choice, [id number] 4 13:06:26 Pap, thin prep & HPV high risk and HPV 16/18 2012 013 [facility] (Centralized Electronic Ordering - All Locations), Patient Can Go To The Location Of Their Choice, [address] 3 13:03:39 vaginal pathogens DNA probe - TEST CODE 24000 ; VAGINAL PATHOGENS 2012 013 [email or web address] Not available 3 10:51:05 chandler prep, tissue 2012 013 JOSIAS In-House Results, For Internal Use Only, Do Not Delete/merge, 41656 3 03:20:41 vaginal swab pH and amines 2012 013 J[facility] In-House Results, For Internal Use Only, Do Not Delete/merge, [id number] 3 03:20:41 Pap, thin prep & HPV high risk and HPV 16/18 2012 013 [facility] (Centralized Electronic Ordering - All Locations), Patient Can Go To The Location Of Their Choice, [address] 3 14:03:07 vaginal pathogens DNA probe - Bacterial Vaginosis, Gill, and Trich 2012 013 [email or web address] Not available 3 10:50:42 wet mount,vagi nal 2012 013 J[facility] In-House Results, For Internal Use Only, Do Not Delete/merge, [id number] 3 03:20:41 urinalysis , dipstick 2012 013 [facility] In-House Results, For Internal Use Only, Do Not Delete/merge, 21639 3 03:20:41 Referral colonoscop y referral 2015 016 DBA_PATCH_ [id number] Not available 6 04:30:56 Procedures None recorded. Surgeries None recorded. Imaging MAMMO, screening, bilateral 2015 016 DBA_PATCH_ [id number] [facility] [address] [place], [address], 6 04:30:57 DEXA, axial skeleton 2015 016 DBA_PATCH_ [id number] [facility] [address] [place], [address], 6 04:30:56 Medication Orders Estrace 0.01% (0.1 mg/gram) vaginal cream 2013 014 INTERFACE [facility], [address] [place] [address], [address], 4 17:56:59 Vagifem 10 mcg vaginal tablet 2013 014 [facility], [address] [place] [address], [address], 4 13:18:38 Estrace 0.01% (0.1 mg/gram) vaginal cream 2012 013 JOSIAS Not available 3 03:20:41 Estrace 0.01% (0.1 mg/gram) vaginal cream 2012 013 JOSIAS [facility], [address] [place] [address], [address], 3 03:20:41 tinidazole 500 mg tablet 2012 013 [id number], [address], [place], [id number], 3 03:20:41 Patient TargetsNo targets recorded. Patient Instructions Encounter Date Encounter Id Patient Instructions Last Modified By Organization Details Last Modified Time 10/24/2012 [id number] Long discussion regarding ASCUS. Pt has remote history of JAJA 3 (1975). Discussed that current HR HPV status is negative. Plan to repeat pap in 6 months [email or web address] Not available 10/24/2012 16:10:25 08/14/2013 [id number] Vulvar irritatio n probably due to sand. Will resume Vagifem and increase Estrace to 3x/wk for 2 wks then retrun to twice weekly. Not available 08/14/2013 17:56:55 02/12/2016 [id number] eating healthy foods: care instructions DBA_PATCH_[email or web address] [id number] Not available 04/11/2016 04:30:57 abnormal weight gain: care instructions DBA_PATCH_201 [id number] Not available 04/11/2016 04:30:57 A healthy heart: care instructions DBA_PATCH_201 [id number] Not available 04/11/2016 04:30:57 kegel exercises: care instructions DBA_PATCH_201 [id number] Not available 04/11/2016 04:30:57 advance directives: care instructions DBA_PATCH_201 [id number] Not available 04/11/2016 04:30:57 Reason for Referral Colonoscopy Referral for Scr eening for malignant neoplasm of colon Referring Physician: Carline Jefferson, ROD CUP FILLER, Encounter Date: 02/12/2016 Results Created Date Observation Date Name Description Value Unit Range Abnormal Flag Note LastModifiedBy Organization Detail LastModifiedTime 10/31/19 13 10/30/2012 sures wab(t m),T. vagin bong RNA,q l tma sureswab(R) trichomonas vaginalis RNA, ql tma NOT DETECT ED not detect ed no colle ction date recei vida. we have used the date the speci men was recei vida by this labor atory the colle ction date. if this IS incor rect, pleas e conta ct clien t servi viri. phone numbe r: [phone] Not Available [facility] [address] [place], [address], 10/30/2012 10:03:10 08/15/19 14 08/14/2013 urina lysis , dipst ick Leukocytes Negati ve Not Available In-House Results For Internal Use Only, Do Not Delete/merge, [id number] 08/14/2013 17:15:42 08/15/19 14 08/14/2013 urina lysis , dipst ick Nitrite negati ve Not Available In-House Results For Internal Use Only, Do Not Delete/merge, [id number] 08/14/2013 17:15:42 08/15/19 14 08/14/2013 urina lysis , dipst ick Urobilinogen .2 Not Available In-Ho use Results For Internal Use Only, Do Not Delete/merge, 08/14/2013 17:15:42 08/15/19 14 08/14/2013 urina lysis , dipst ick Protein Negati ve Not Available In-House Results For Internal Use Only, Do Not Delete/merge, 08/14/2013 17:15:42 08/15/19 14 08/14/2013 urina lysis , dipst ick pH 5.0 Not Available In-House Results For Internal Use Only, Do Not Delete/merge, 08/14/2013 17:15:42 08/15/19 14 08/14/2013 urina lysis , dipst ick Blood Negati ve Not Available In-House Results For Internal Use Only, Do Not Delete/merge, 08/14/2013 17:15:42 08/15/19 14 08/14/2013 urina lysis , dipst ick Specific [place] 1.015 Not Available In-[place] se Results For Internal Use Only, Do Not Delete/merge, 08/14/2013 17:15:42 08/15/19 14 08/14/2013 urina lysis , dipst ick Ketone Negati ve Not Available In-House Results For Internal Use Only, Do Not Delete/merge, 08/14/2013 17:15:42 08/15/19 14 08/14/2013 urina lysis , dipst ick Bilirubin Negati ve Not Available In-House Results For Internal Use Only, Do Not Delete/merge, 08/14/2013 17:15:42 08/15/19 14 08/14/2013 urina lysis , dipst ick Glucose Negati ve Not Available In-House Results For Internal Use Only, Do Not Delete/merge, 08/14/2013 17:15:42 10/25/19 13 10/24/2012 urina lysis , dipst ick Leukocytes Negati ve Not Available In-House Results For Internal Use Only, Do Not Delete/merge, 10/24/2012 15:39:29 07/05/15 1210/24/2012 urina lysis , dipst ick Nitrite negati ve Not Available In-House Results For Internal Use Only, Do Not Delete/merge, 10/24/2012 15:39:10/25/1910/24/2012 urina lysis , dipst ick Urobilinogen .2 Not Available In-Ho use Results For Internal Use Only, Do Not Delete/merge, 10/24/2012 15:39:10/25/1910/24/2012 urina lysis , dipst ick Protein Negati ve Not Available In-House Results For Internal Use Only, Do Not Delete/merge, 10/24/2012 15:39:10/25/1910/24/2012 urina lysis , dipst ick pH 5.0 Not Available In-House Results For Internal Use Only, Do Not Delete/merge, 10/24/2012 15:39:10/25/1910/24/2012 urina lysis , dipst ick Blood Negati ve Not Available In-House Results For Internal Use Only, Do Not Delete/merge, 10/24/2012 15:39:10/25/1910/24/2012 urina lysis , dipst ick Specific [place] 1.010 Not Available In-[place] se Results For Internal Use Only, Do Not Delete/merge, 10/24/2012 15:39:10/25/1910/24/2012 urina lysis , dipst ick Ketone Negati ve Not Available In-House Results For Internal Use Only, Do Not Delete/merge, 10/24/2012 15:39:10/25/1910/24/2012 urina lysis , dipst ick Bilirubin Negati ve Not Available In-House Results For Internal Use Only, Do Not Delete/merge, 10/24/2012 15:39:10/25/1910/24/2012 urina lysis , dipst ick Glucose Negati ve Not Available In-House Results For Internal Use Only, Do Not Delete/merge, 10/24/2012 15:39:10/25/1910/24/2012 vagin al swab pH and amine s Vaginal pH 6.0 or more Not Available In-House Results For Internal Use Only, Do Not Delete/merge, 10/24/2012 15:39:29 10/25/19 13 10/24/2012 chandler prep, tissu e Fungus negati ve Not Available In-House Results For Internal Use Only, Do Not Delete/merge, 10/24/2012 15:39:29 10/25/19 13 10/24/2012 wet mount ,vagi nal Clue Cells Presen t Not Available In-House Results For Internal Use Only, Do Not Delete/merge, 10/24/2012 15:39:29 10/25/19 13 10/24/2012 wet mount ,vagi nal Whiff positi ve Not Available In-House Results For Internal Use Only, Do Not Delete/merge, 10/24/2012 15:39:29 10/25/19 13 10/24/2012 wet mount ,vagi nal Trichomonas Absent Not Available In-[place] se Results For Internal Use Only, Do Not Delete/merge, 10/24/2012 15:39:29 10/25/19 13 10/24/2012 wet mount ,vagi nal Hyphae Absent Not Available In-House Results For Internal Use Only, Do Not Delete/merge, 10/24/2012 15:39:29 10/11/19 13 10/10/2012 occul t blood , scree n Occult Blood negati ve Not Available In-House Results For Internal Use Only, Do Not Delete/merge, 10/10/2012 15:16:32 10/11/19 13 10/13/2012 urina lysis , dipst ick Leukocytes Negati ve Not Available In-House Results For Internal Use Only, Do Not Delete/merge, 10/10/2012 15:16:32 10/11/19 13 10/13/2012 urina lysis , dipst ick Nitrite negati ve Not Available In-House Results For Internal Use Only, Do Not Delete/merge, 10/10/2012 15:16:32 10/11/19 13 10/13/2012 urina lysis , dipst ick Urobilinogen .2 Not Available In-Ho use Results For Internal Use Only, Do Not Delete/merge, 10/10/2012 15:16:32 10/11/19 13 10/13/2012 urina lysis , dipst ick Protein Negati ve Not Available In-House Results For Internal Use Only, Do Not Delete/merge, 10/10/2012 15:16:32 10/11/19 13 10/13/2012 urina lysis , dipst ick pH 5.0 Not Available In-House Results For Internal Use Only, Do Not Delete/merge, 10/10/2012 15:16:32 10/11/19 13 10/13/2012 urina lysis , dipst ick Blood Negati ve Not Available In-House Results For Internal Use Only, Do Not Delete/merge, 10/10/2012 15:16:32 10/11/19 13 10/13/2012 urina lysis , dipst ick Specific [place] 1.015 Not Available In-[place] se Results For Internal Use Only, Do Not Delete/merge, 10/10/2012 15:16:32 10/11/19 13 10/13/2012 urina lysis , dipst ick Ketone Negati ve Not Available In-House Results For Internal Use Only, Do Not Delete/merge, 10/10/2012 15:16:32 10/11/19 13 10/13/2012 urina lysis , dipst ick Bilirubin Negati ve Not Available In-House Results For Internal Use Only, Do Not Delete/merge, 10/10/2012 15:16:32 10/11/19 13 10/13/2012 urina lysis , dipst ick Glucose Negati ve Not Available In-House Results For Internal Use Only, Do Not Delete/merge, 10/10/2012 15:16:32 10/12/19 13 10/14/2012 Pap image guide d, HPV high risk and HPV genot ype 16/18 diagnosis: [facility] abnormal epith elial cell abnor malit y. atypi mira squam ous cells of undet ermin ed signi fican ce. Not Available [facility] ([facility]) [address] [facility], [place], [address], 10/14/2012 12:38:46 10/12/19 13 10/14/2012 Pap image guide d, HPV high risk and HPV genot ype 16/18 specimen adequacy: [facility] satis facto ry for evalu ation . endoc ervic al and/o r squam ous metap lasti c cells (endo cervi mira compo nent) are prese nt. Not Available [facility] ([facility]) [address] [place], [address], 10/14/2012 12:38:46 10/12/19 13 10/14/2012 Pap image guide d, HPV high risk and HPV genot ype 16/18 clinician provided ICD9: [facility] V76.2 ; justin choe for andreia sinclair neopl asm of the cervi x Not Available [facility] ([facility]) [address] [place], [address], 10/14/2012 12:38:46 10/12/19 13 10/14/2012 Pap image guide d, HPV high risk and HPV genot ype 16/18 performed by: [facility] nena wood, cytot echno logis t Not Available [facility] ([facility]) [address] [place], [address], 10/14/2012 12:38:46 10/12/19 13 10/14/2012 Pap image guide d, HPV high risk and HPV genot ype 16/18 electronical ly signed by: [facility] almaLiliya he md, patho logis t Not Available [facility] ([facility]) [address] [place], [address], 10/14/2012 12:38:46 10/12/19 13 10/14/2012 Pap image guide d, HPV high risk and HPV genot ype 16/18 . . Not Available [facility] ([facility]) [address] [place], [address], 10/14/2012 12:38:46 10/12/19 13 10/14/2012 Pap image guide d, HPV high risk and HPV genot ype 16/18 pathologist provided ICD9: [facility] 795.0 1 Not Available [facility] ([facility]) [address] [place], [address], 10/14/2012 12:38:46 10/12/19 13 10/14/2012 Pap image guide d, HPV high risk and HPV genot ype 16/18 note: PAPSMR the Pap smear IS A scree daija test desig venu to aid in the detec tion of timmy ligna nt and malig nant condi tions of the uteri ne cervi x. IT IS not A diagn ostic proce dure and shoul d not BE used the sole means of detec ting cervi mira cance r. both false -posi tive and false -nega tive repor ts do occur . . Not Available [facility] ([facility]) [address] [facility], [place], [address], 10/14/2012 12:38:46 10/12/19 13 10/14/2012 Pap image guide d, HPV high risk and HPV genot ype 16/18 test methodology: IGLPAP this liqui d based thinp rep(R ) Pap test was scree venu with the use of an image guide d syste m. Not Available [facility] ([facility]) [address] [place], [address], 10/14/2012 12:38:46 10/12/19 13 10/14/2012 Pap image guide d, HPV high risk and HPV genot ype 16/18 HPV other HR types NEGATI VE negati ve Not Available [facility] ([facility]) [address] [place], [address], 10/14/2012 12:38:46 10/12/19 13 10/14/2012 Pap image guide d, HPV high risk and HPV genot ype 16/18 HPV 16 NEGATI VE negati ve Not Available [facility] ([facility]) [address] [place], [address], 10/14/2012 12:38:46 10/12/19 13 10/14/2012 Pap image guide d, HPV high risk and HPV genot ype 16/18 HPV 18 NEGATI VE negati ve this test detec ts fourt een high- risk HPV types : HPV16 , HPV18 and twelv e other high- risk types (31, 33, 35, 39, 45, 51, 52, 56, 58, 59, 66, 68) witho ut diffe renti ation . Not Available [facility] ([facility]) [address] [facility], [place], [address], 10/14/2012 12:38:46 03/20/20 13 03/22/2013 Pap ig, HPV and rfx HPV 16/18 diagnosis: [facility] negat moo for intra epith elial lesio n and andreia gricelda . Not Available [facility] ([facility]) [address] [facility], [place], [address], 03/22/2013 20:36:21 03/20/20 13 03/22/2013 Pap ig, HPV and rfx HPV 16/18 specimen adequacy: [facility] satis facto ry for evalu ation . endoc ervic al and/o r squam ous metap lasti c cells (endo cervi mira compo nent) are prese nt. Not Available [facility] ([facility]) [address] [facility], [place], [address], 03/22/2013 20:36:21 03/20/20 13 03/22/2013 Pap ig, HPV and rfx HPV 16/18 clinician provided ICD9: [facility] 795.0 1 ; papan icola ou smear of cervi x with atypi mira squam ous cells of undet ermin ed signi fican ce (asc- [place]) Not Available [facility] ([facility]) [address] [place], [address], 03/22/2013 20:36:21 03/20/20 13 03/22/2013 Pap ig, HPV and rfx HPV 16/18 performed by: [facility] alexandre vanme ter, cytot echno logis t (ascp ) Not Available [facility] ([facility]) [address] [place], [address], 03/22/2013 20:36:21 03/20/20 13 03/22/2013 Pap ig, HPV and rfx HPV 16/18 . . Not Available [facility] ([facility]) [address] [facility], [place], [address], 03/22/2013 20:36:21 03/20/20 13 03/22/2013 Pap ig, HPV and rfx HPV 16/18 note: PAPSMR the Pap smear IS A scree daija test desig venu to aid in the detec tion of timmy ligna nt and malig nant condi tions of the uteri ne cervi x. IT IS not A diagn ostic proce dure and shoul d not BE used the sole means of detec ting cervi mira cance r. both false -posi tive and false -nega tive repor ts do occur . . Not Available [facility] ([facility]) [address] [facility], [place], [address], 03/22/2013 20:36:21 03/20/20 13 03/22/2013 Pap ig, HPV and rfx HPV 16/18 test methodology: IGLPAP this liqui d based thinp rep(R ) Pap test was scree venu with the use of an image guide tan systboy m. Not Available [facility] ([facility]) [address] [place], [address], 03/22/2013 20:36:21 03/20/20 13 03/22/2013 Pap ig, HPV and rfx HPV 16/18 HPV, high-risk NEGATI VE negati ve this high- risk HPV test detec ts thirt een high- risk types (16/1 8/31/ 33/35 /39/4 5/51/ 52/56 /58/5 ) witho ut diffe renti ation . . Not Available [facility] ([facility]) [address] [facility], [place], [address], 03/22/2013 20:36:21 08/15/19 14 08/17/2013 nua b vag atopobium vaginae LOW - 0 score Not Available [facility] ([facility]) [address] [facility], [place], [address], 08/18/2013 14:36:45 08/15/19 14 08/17/2013 nuswa b vag bvab 2 LOW - 0 score Not Available [facility] ([facility]) [address] [facility], [place], [address], 08/18/2013 14:36:45 08/15/19 14 08/17/2013 nua b vag megasphaera 1 LOW - 0 score calcu late total score by nick herndon the 3 indiv idual bacte rial vagin osis (bv) marke r score s toget her. total score IS inter prete d follo ws: . total score 0-1: indic ates the absen ce of bv. total score 2: indet ermin ate for bv. addit ional clini mira data shoul d BE evalu ated to estab dennys A diagn osis. total score 3-6: indic ates the prese nce of bv. . this test was devel oped and its perfo rmanc e panfilo cteri stics deter mined by [facility]. IT has not been clear ed or appro vida by the food and drug admin istra tion. the fda has deter mined that such clear ance or appro cesar IS not neces ruel. Not Available [facility] ([facility]) [address] [facility], [place], [address], 08/18/2013 14:36:45 08/15/19 14 08/17/2013 nua b vag gill albicans, ROMINA POSITI VE negati ve abnormal Not Available [facility] ([facility]) [address] [facility], [place], [address], 08/18/2013 14:36:45 08/15/19 14 08/17/2013 nuswa b vag gill glabrata, ROMINA NEGATI VE negati ve this test was devel oped and its perfo rmanc e panfilo cteri stics deter mined by [facility]. IT has not been clear ed or appro vida by the food and drug admin istra tion. the fda has deter mined that such clear ance or appro cesar IS not neces ruel. Not Available [facility] ([facility]) [address] [facility], [place], [address], 08/18/2013 14:36:45 08/15/19 14 08/18/2013 nuswa b vag trich vag by ROMINA NEGATI VE negati ve Not Available [facility] ([facility]) [address] [facility], [place], [address], 08/18/2013 14:36:45 02/12/20 16 02/13/2016 vitam in D, 25-hy droxy , total , serum vitamin D, 25-hydroxy 101.0 NG/mL 30.0-1 00.0 above high normal VITAM IN D DEFIC IENCY HAS BEEN DEFIN ED BY THE INSTI TUTE OF MEDIC INE AND AN ENDOC RINE SOCIE TY PRACT ICE GUIDE LINE A LEVEL OF SERUM 25-OH VITAM IN D LESS THAN 20 NG/ML (1,2) . THE ENDOC RINE SOCIE TY WENT ON TO [facility] ER DEFIN E VITAM IN D INSUF FICIE NCY A LEVEL BETWE EN 21 AND 29 NG/ML (2). 1. IOM (INST ITUTE OF MEDIC INE). 2009. DIETA RY REFER ENCE INTAK ES FOR CALCI UM AND D. SHEYLA TOVAR DC: THE NATIO NAL [facility] PRESS . 2. SHRUTHI Grigsby MF, TWYLA BEAR NC, BECKY OFF-F ERRTE I GARCIA, ET AL. EVALU ATION , TREAT MENT, AND PREVE NTION OF VITAM IN D DEFIC IENCY : AN ENDOC RINE SOCIE TY CLINI MIRA PRACT ICE GUIDE LINE. JCEM. 2010; 96(7) :1911 -30. Not Available [facility] ([facility]) [address] [facility] [place], [address], 02/13/2016 08:43:12 02/12/20 16 02/13/2016 urina lysis compl ete, refle x cultu re specific gravity 1.007 1.005- 1.030 Not Available [facility] ([facility]) [address] [facility], [place], [address], 02/14/2016 07:38:28 02/12/20 16 02/13/2016 urina lysis compl ete, refle x cultu re pH 7.5 5.0-7. 5 Not Available [facility] ([facility]) [address] [place], [address], 02/14/2016 07:38:28 02/12/20 16 02/13/2016 urina lysis compl ete, refle x cultu re urine-color YELLOW yellow Not Available [facility] ([facility]) [address] [facility], [place], [address], 02/14/2016 07:38:28 02/12/20 16 02/13/2016 urina lysis compl ete, refle x cultu re appearance CLEAR clear Not Available [facility] ([facility]) [address] [place], [address], 02/14/2016 07:38:28 02/12/20 16 02/13/2016 urina lysis compl ete, refle x cultu re WBC esterase 3+ negati ve abnormal Not Available [facility] ([facility]) [address] [place], [address], 02/14/2016 07:38:28 02/12/20 16 02/13/2016 urina lysis compl ete, refle x cultu re protein NEGATI VE negati ve/tra ce Not Available [facility] ([facility]) [address] [place], [address], 02/14/2016 07:38:28 02/12/20 16 02/13/2016 urina lysis compl ete, refle x cultu re glucose NEGATI VE negati ve Not Available [facility] ([facility]) [address] [place], [address], 02/14/2016 07:38:28 02/12/20 16 02/13/2016 urina lysis compl ete, refle x cultu re ketones NEGATI VE negati ve Not Available [facility] ([facility]) [address] [place] [address], [address], 02/14/2016 07:38:28 02/12/2002/13/2016 urina lysis compl ete, refle x cultu re occult blood NEGATI VE negati ve Not Available [facility] ([facility]) [address] [place] [address], [address], 02/14/2016 07:38:28 02/12/20 16 02/13/2016 urina lysis compl ete, refle x cultu re bilirubin NEGATI VE negati ve Not Available [facility] ([facility]) [address] [place] [address], [address], 02/14/2016 07:38:28 02/12/20 16 02/13/2016 urina lysis compl ete, refle x cultu re urobilinogen ,semi-qn 0.2 mg/dL 0.2-1. 0 Not Available [facility] ([facility]) [address] [place] [address], [address], 02/14/2016 07:38:28 02/12/20 16 02/13/2016 urina lysis compl ete, refle x cultu re nitrite, urine NEGATI VE negati ve Not Available [facility] ([facility]) [address] [place] [address], [address], 02/14/2016 07:38:28 02/12/20 16 02/13/2016 urina lysis compl ete, refle x cultu re microscopic examination SEE BELOW: MICRO SCOPI C WAS INDIC ATED AND WAS PERFO RMED. Not Available [facility] ([facility]) [address] [facility], [place], [address], 02/14/2016 07:38:28 02/12/20 16 02/13/2016 urina lysis compl ete, refle x cultu re WBC 11-30 /hpf 0 - 5 abnormal Not Available [facility] ([facility]) [address] [place], [address], 02/14/2016 07:38:28 02/12/20 16 02/13/2016 urina lysis compl ete, refle x cultu re RBC 0-2 /hpf 0 - 2 Not Available [facility] ([facility]) [address] [facility] [place], [address], 02/14/2016 07:38:28 02/12/20 16 02/13/2016 urina lysis compl ete, refle x cultu re epithelial cells (non renal) 0-10 /hpf 0 - 10 Not Available [facility] ([facility]) [address] [facility], [place], [address], 02/14/2016 07:38:28 02/12/20 16 02/13/2016 urina lysis compl ete, refle x cultu re epithelial cells (renal) REFRIGERATION OPERATOR Not Available [facility] ([facility]) [address] [facility], [place], [address], 02/14/2016 07:38:28 02/12/20 16 02/13/2016 urina lysis compl ete, refle x cultu re casts REFRIGERATION OPERATOR Not Available [facility] ([facility]) [address] [place], [address], 02/14/2016 07:38:28 02/12/20 16 02/13/2016 urina lysis compl ete, refle x cultu re cast type REFRIGERATION OPERATOR Not Available [facility] ([facility]) [address] [place], [address], 02/14/2016 07:38:28 02/12/20 16 02/13/2016 urina lysis compl ete, refle x cultu re crystals REFRIGERATION OPERATOR Not Available [facility] ([facility]) [address] [place], [address], 02/14/2016 07:38:28 02/12/20 16 02/13/2016 urina lysis compl ete, refle x cultu re crystal type REFRIGERATION OPERATOR Not Available [facility] ([facility]) [address] [facility], [place], [address], 02/14/2016 07:38:28 02/12/20 16 02/13/2016 urina lysis compl ete, refle x cultu re mucus threads REFRIGERATION OPERATOR Not Available [facility] ([facility]) [address] [place], [address], 02/14/2016 07:38:28 02/12/20 16 02/13/2016 urina lysis compl ete, refle x cultu re bacteria FEW none seen/f ew Not Available [facility] ([facility]) [address] [place], [address], 02/14/2016 07:38:28 02/12/20 16 02/13/2016 urina lysis compl ete, refle x cultu re yeast REFRIGERATION OPERATOR Not Available [facility] ([facility]) [address] [place], [address], 02/14/2016 07:38:28 02/12/20 16 02/13/2016 urina lysis compl ete, refle x cultu re trichomonas REFRIGERATION OPERATOR Not Available [facility] ([facility]) [address] [place], [address], 02/14/2016 07:38:28 02/12/20 16 02/13/2016 urina lysis compl ete, refle x 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 Not Available [facility] ([facility]) [address] [facility], [place], [address], 02/14/2016 07:38:28 02/12/20 16 02/14/2016 urina lysis compl ete, refle x cultu re urine culture, routine FINAL REPORT Not Available [facility] ([facility]) [address] [facility], [place], [address], 02/14/2016 07:38:28 02/12/20 16 02/14/2016 urina lysis compl ete, refle x cultu re result 1 NO GROWTH Not Available [facility] ([facility]) [address] [facility], [place], [address], 02/14/2016 07:38:28 02/12/20 16 02/17/2016 pap, IG + HPV diagnosis: COMMEN T NEGAT MOO FOR INTRA EPITH ELIAL DAMIEN N AND ANDREIA NGUYEN . Not Available [facility] ([facility]) [address] [facility], [place], [address], 02/17/2016 12:35:57 02/12/20 16 02/17/2016 pap, IG + HPV specimen adequacy: COMMEN T SATIS FACTO RY FOR EVALU ATION . ENDOC ERVIC AL AND/O R SQUAM OUS METAP LASTI C CELLS (ENDO CERVI MIRA COMPO NENT) ARE PRESE NT. Not Available [facility] ([facility]) [address] [place], [address], 02/17/2016 12:35:57 02/12/20 16 02/17/2016 pap, IG + HPV clinician provided ICD10: ANIKA Moraes Z12.4 R35.0 E55.9 Not Available [facility] ([facility]) [address] [place], [address], 02/17/2016 12:35:57 02/12/20 16 02/17/2016 pap, IG + HPV performed by: ANIKA VARGAS , CYTOAleisha Moraes (ASCP ) Not Available [facility] ([facility]) [address] [place], [address], 02/17/2016 12:35:57 02/12/20 16 02/17/2016 pap, IG + HPV . . Not Available [facility] ([facility]) [address] [place], [address], 02/17/2016 12:35:57 02/12/20 16 02/17/2016 pap, IG + HPV note: ANIKA Moraes THE PAP SMEAR IS A SCREE DAIJA TEST DESIG VENU TO AID IN THE DETEC TION OF TIMMY LIGNA NT AND MALIG NANT CONDI TIONS OF THE UTERI NE CERVI X. IT IS NOT A DIAGN OSTIC PROCE DURE AND SHOUL D NOT BE USED THE SOLE MEANS OF DETEC TING CERVI MIRA CANCE R. BOTH FALSE -POSI TIVE AND FALSE -NEGA TIVE REPOR TS DO OCCUR . Not Available [facility] ([facility]) [address] [facility], [place], [address], 02/17/2016 12:35:57 02/12/2002/17/2016 pap, IG + HPV test methodology: ANIKA Moraes THIS LIQUI D BASED THINP REP(R ) PAP TEST WAS SCREE VENU WITH THE USE OF AN IMAGE GUIDE Tan Monsivais. Not Available [facility] ([facility]) [address] [place], [address], 02/17/2016 12:35:57 02/12/20 16 02/17/2016 pap, IG + HPV HPV aptima NEGATI VE negati ve THIS TEST DETEC TS FOURT EEN HIGH- RISK HPV TYPES (16/1 8/31/ 33/35 /39/4 5/ 51/52 /56/5 8/59/ 66/68 ) WITHO UT DIFFE RENTI ATION . Not Available [facility] ([facility]) [address] [facility], [place], [address], 02/17/2016 12:35:57 11/15/19 13 11/14/2012 mammo gram, scree daija No observ ation record ed. [email or web address] [address], [place], [address], 11/17/2012 17:39:45 12/08/19 17 12/04/2016 MAMMO , scree daija, bilat eral No observ ation record ed. [facility] [address] [facility] [address], [place], [address], 12/13/2016 22:23:51 Result Notes None recorded. Problems Name Problem SNOMED Code Status Onset Date Resolution Date Notes Provider Name and Address Organization Details Recorded Time Acute vaginitis 09990706 Active Adriana Chavez rse null [place] - [facility] 4 18:34:43 Allergy to food 329503864 Active 2015 Adriana Chavez rse null, [place] - [facility] 6 15:52:07 Varicose veins of lower extremity 01534016 Active Not Available [facility] 3 03:03:10 Atrophic vaginitis 49929219 Active Not Available [facility] 3 03:03:10 History of dysplasia of cervix 285239783 Active 1975 JAJA 3 treated with cryo ASCUS September 2012 Ernestina Eden null, [place] - [facility] 3 22:58:51 Human papilloma virus infection 779406427 Active Jaja 3 - 1976 Not Available [facility] 3 03:03:10 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,[address], [place], [address] , [facility] [employer] 4 21:48:44 Female genital organ symptoms 853693556 Active Carline Jefferson MD [address] [facility],[address], [place], [address] , [facility] 4 21:48:44 Degenerativ e joint disease involving multiple joints 866662779 Active Not Available [facility] 3 03:03:10 Peripheral venous insufficien cy 48749713 Active Not Available [facility] 3 03:03:10 Allergic rhinitis 46088567 Active Not Available [facility] 3 03:03:10 History of polyp of colon 783486971 Active Not Available [facility] 3 03:03:10 IgE-mediate d allergic asthma 875170246 Active Not Available [facility] 3 03:03:10 Vaginitis and vulvovagini tis Active Carline Jefferson MD [address] [facility],[address], [place], [address] , [facility] 4 21:48:44 Problem Notes None recorded. Procedures Surgical History Date Name Laterality Status Provider Name and Address Organization Details Recorded Time 10/25/19 14 Date of Last Colonoscopy completed Adriana Hoang se [facility] 02/12/2016 15:50:47 10/25/19 14 Colonoscopy with biopsy completed Adriana Hoang se [facility] 02/12/2016 15:50:36 04/26/18 79 Caesarean Section completed Rainrosario Lott [facility] 09/18/2011 11:48:35 04/26/18 77 Other Surgery - List type completed Samina Price [facility] 09/30/2011 11:34:12 04/26/18 75 [facility] 11:48:35 Breast: Biopsy completed [facility] 09/18/2011 11:48:35 Other Surgery - List type completed [facility] 09/18/2011 11:48:35 Orthopedic Surgery - List type completed [facility] 09/18/2011 11:48:35 Orthopedic Surgery - List type completed [facility] 09/18/2011 11:48:35 Cholecystectomy (Gallbladder) completed [facility] 09/18/2011 11:48:35 Orthopedic Surgery - List type completed [facility] 09/18/2011 11:48:35 Orthopedic Surgery - List type completed [facility] 09/18/2011 11:48:35 Dilation and Curettage (OB or Winery Cellar Hand) completed [facility] 09/18/2011 11:48:35 Imaging Results Imaging Date Name Status LastModified by Organiz atformerly [facility] Details LastModified Time 11/14/2012 mammogram, screening completed [facility] (Radiology & Lab) [address] , [place], [address], 11/17/2012 17:39:45 12/04/2016 MAMMO, screening, bilateral completed [email or web address] [address] [facility] [address], [place], [address], 12/13/2016 22:23:51 Procedure Notes None recorded. Medical Equipment None Reported. Allergies Allergen ID Allergen Name Allergen Category Reaction Reaction Severity Criticality Documentation Date Start Date Code Code System Note Provider Name and Address Organization Details Recorded Time 2761 Demerol medicatio n dizziness nausea Not available Not available Not available 09/18/2011 01992 1 RxNorm Not Available Not Available Not Available 276 codeine medicatio n other Not available Not available 09/18/2011 2670 RxNorm Not Available Not Available Not Available 2763 pseudoeph edrine Not available dizziness nausea Not available Not available Not available 09/18/2011 8896 RxNorm Not Available Not Available Not Available 2764 morphine medicatio n dizziness nausea Not available Not available Not available 09/18/2011 7052 RxNorm Not Available Not Available Not Available Medications Name Sig Start Date Stop Date Status Note LastModified by Organization Details LastModified Time clotrimazol e - betamethaso ne 1% - 0.05% topical cream Apply small mount to affected area BID x 14 days 2013 active Not Available Not Available Not Avai lable clotrimazol e - betamethaso ne 1% - 0.05% topical cream Apply small mount to affected area BID x 14 days 2013 active Not Available Not Available Not Avai lable amoxicillin 500 mg capsule 02/11 completed Not Available Not Available Not Available albuterol sulfate 2.5 mg/3 mL (0.083 %) solution for nebulizatio n active Not Available Not Available Not Available fluconazole 150 mg tablet TAKE 1 TABLET BY ORAL ROUTE FOR 1 DAY active Not Available Not Available No t Available hydrocodone 5 mg-acetamin ophen 325 mg tablet active Not Available Not Available No t Available meloxicam 15 mg tablet active Not Available Not Available Not Available sucralfate 1 gram tablet active Not Available Not Available Not Available ondansetron HCl 4 mg tablet active Not Available Not Available Not Available sertraline 100 mg tablet active Not Available Not Available Not Available ciprofloxac in 500 mg tablet active Not Available Not Available Not Available omeprazole 40 mg capsule,del ayed release active Not Available Not Available Not Available tramadol 50 mg tablet active Not Available Not Available No t Available triamterene 37.5 mg-hydrochl orothiazide 25 mg capsule active Not Available Not Available Not Available Celebrex 200 mg capsule active Not Available Not Available Not Available oxycodone-a cetaminophe n 5 mg-325 mg tablet active Not Available Not Available No t Available aspirin 325 mg tablet,cipriano yed release active Not Available Not Available Not Available cyanocobala min (vit B-12) 1,000 mcg/mL injection solution active Not Available Not Available Not Available clotrimazol e-betametha sone 1 %-0.05 % topical cream active Not Available Not Available Not Available warfarin 2 mg tablet active Not Available Not Available No t Available triamterene 37.5 mg-hydrochl orothiazide 25 mg tablet active Not Available Not Available Not Available omeprazole 20 mg capsule,del ayed release active Not Available Not Available Not Available Slo-Niacin 500 mg tablet,exte nded release Take 2 tablets every day by oral route. active Not Available Not Available No t Available mupirocin 2 % topical ointment active Not Available Not Available Not Available Transderm-S marble coper 1 mg over 3 days transdermal patch active Not Available Not Available Not Available indomethaci n ER 75 mg capsule,ext ended release active Not Available Not Available Not Available sertraline 50 mg tablet active Not Available Not Available Not Available BD Luer-Luna Syringe 3 mL 26 x 5/8 active Not Available Not Available Not Available naproxen 500 mg tablet active Not Available Not Available Not Available amoxicillin 875 mg-potassiu m clavulanate 125 mg tablet active Not Available Not Available Not Available Estrace 0.01% (0.1 mg/gram) vaginal cream use as directed active Not Available Not Available No t Available Premarin 0.625 mg/gram vaginal cream Insert 0.5 g twice a week by vaginal route at bedtime for 28 days. active Not Available Not Available No t Available tinidazole 500 mg tablet Take 4 tablets every day by oral route with meals for 2 days. 10/26 completed Not Available Not Available Not Available magnesium active Not Available Not Solange ilable Not Available Co Q-10 active Not Available Not Avail able Not Available Grape Seed active Not Available Not Av ailable Not Available Acetyl-L-Ca rnitine active Not Available Not Available Not Available Calcium 600 + D(3) active Not Available Not Available Not Available BD Insulin Syringe Ult-Fine II 1 mL 31 gauge x 5/16 active Not Available Not Available Not Available ProAir HFA 90 mcg/actuati on aerosol inhaler INL 2 PFS PO Q 4 H PRN active Not Available Not Available No t Available Symbicort 160 mcg-4.5 mcg/actuati on HFA aerosol inhaler active Not Available Not Available Not Available Voltaren 1 % topical gel active Not Available Not Available Not Available Vitamin D3 100 mcg (4,000 unit) capsule active Not Available Not Available Not Available Soolantra 1 % topical cream active Not Available Not Available Not Available Fluzone High-Dose 0612-1464 (PF) 180 mcg/0.5 mL intramuscul ar syringe ADM 0.5ML IM UTD 02/11 completed Not Available Not Available Not Available Yuvafem 10 mcg vaginal tablet Insert 1 tablet twice a week by vaginal route at bedtime for 28 days. active Not Available Not Available No t Available Vitals Date Recorded Body height Body weight Body mass index (BMI) Systolic blood pressure Diastolic blood pressure Provider Name and Address Organization Details Last Updated DateTime 02/12/2016 149.86 cm 46056.59 g 37.4 kg/m2 118 mm[Hg] 60 mm[Hg] Adriana [facility] 6 15:37:22 Date Recorded Body height Body weight Body mass index (BMI) Systolic blood pressure Diastolic blood pressure Provider Name and Address Organization Details Last Updated DateTime 10/24/2012 149.86 cm 43867.42 1374 g 34.4 kg/m2 142 mm[Hg] 78 mm[Hg] Adriana [facility] 3 15:49:53 Date Recorded Body height Body weight Body mass index (BMI) Systolic blood pressure Diastolic blood pressure Provider Name and Address Organization Details Last Updated DateTime 11/16/2012 149.86 cm 84525.51 816 g 33.9 kg/m2 116 mm[Hg] 72 mm[Hg] Adriana [facility] 3 14:33:07 Date Recorded Body height Body weight Body mass index (BMI) Systolic blood pressure Diastolic blood pressure Provider Name and Address Organization Details Last Updated DateTime 03/18/2013 149.86 cm 08655.18 9652 g 36.3 kg/m2 130 mm[Hg] 76 mm[Hg] Adriana [facility] 3 11:22:23 Date Recorded Body height Body weight Body mass index (BMI) Systolic blood pressure Diastolic blood pressure Provider Name and Address Organization Details Last Updated DateTime 08/14/2013 149.86 cm 09401.18 9652 g 36.3 kg/m2 130 mm[Hg] 80 mm[Hg] Thelma Stovall [facility] 4 12:51:37 Social History Question Answer Notes LastModified by Organizat ion Details LastModified Time Tobacco Smoking Status Never Smoker Not Available [employer] 02/09/2020 03:15:59 Do You Have An Advance Directive? Yes [id number] Information not available 02/09/2020 Is Blood Transfusion Acceptable In An Emergency? Yes [id number] Information not available 02/09/2020 Are You Currently Employed? Yes [id number] Information not available 02/09/2020 Who Is Your Employer? 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 No [id number] Information not available 02/09/2020 Live Alone Or With Others? With Others Information not available 09/30/2011 How Much Sleep? Too Busy To Sleep [email or web address] Information not available 09/30/2011 Alcohol Intake Frequency Occasional [email or web address] Information not available 09/30/2011 Caffeine Intake Frequency Daily [email or web address] Information not available 09/30/2011 Caffeine How Many Cups Per Day? / What Type? 6-8 C Hot Tea Information not available 09/30/2011 Regular Exercise? Most Weeks But Inconsistent [email or web address] Information not available 09/30/2011 Illicit Drug Use Frequency (prescription Or Street) Never [email or web address] Information not available 09/30/2011 Current Student? No [email or web address] Information not available 09/30/2011 Diet? Mostly Healthy [email or web address] Informatio n not available 09/30/2011 Calcuim 1,000 - 1,500mg Daily (diet / Suplements)? Yes Takes Calcium Information not available 09/30/2011 Diet High In Fiber? Yes [email or web address] Information not available 09/30/2011 Avoid Second Hand Smoke Exposure? Yes Information not available 09/30/2011 Martial Status: Informati on not available 09/30/2011 Monthly Self Breast Exams? Yes [email or web address] Information not available 09/30/2011 Regular Tooth Brushing, Flossing, And Dental Visits? Yes [email or web address] Information not available 09/30/2011 Education Level: Post Graduate [email or web address] Information not available 09/30/2011 Previous Attempts To Decrease Alcohol Consumption? No [email or web address] Information not available 09/30/2011 Do You Use Your Seat Belt Or Car Seat Routinely? Yes [id number] Information not available 02/09/2020 Are You Sexually Active? Yes [id number] Information not available 02/09/2020 Do You Have Smoke And Carbon Monoxide Detectors In Your Home? Yes [id number] Information not available 02/09/2020 At What Age Did You Start Smoking Tobacco? 16 [id number] Information not available 02/09/2020 How Much Tobacco Do You Smoke? No [id number] Information not available 02/09/2020 Do You Use Sunscreen Routinely? Yes [id number] Information not available 02/09/2020 How Many Years Have You Smoked Tobacco? 4 [id number] Information not available 02/09/2020 Sex: Unknown Functional Status None recorded. Mental Status None recorded. Family History Relationship Description Onset Age of this Age Resolved Age Notes LastModified by Organization Details LastModified Time Mother Disorder of cardiovascul ar system high blood pressu re (previ ously record ed as High Blood Pressu re, Other Heart /Vascu lar /DVT/P E) Not available 08/14/2013 21:47:22 Mother Osteoporosis Not availa ble 08/14/2013 21:47:22 Mother Cerebrovascu lar accident previo usly record ed as Stroke Not available 08/14/2013 21:47:22 Mother Disorder of eye catara cts (previ ously record ed as Other Specif ied Eye Disord er) Not available 08/14/2013 21:47:22 Mother Disorder of cardiovascul ar system previo usly record ed as Heart Attack (LA) Ischem ic heart diseas e Not available 08/14/2013 21:47:22 Paternal Grandfather Malignant neoplastic disease throat cancer -decea sed in his 50's-s moker (previ ously record ed as Other Specif ied Cancer , not listed above) Not available 08/14/2013 21:47:22 Paternal Grandmother Leukemia (morphologic abnormality) deceas ed in her 60's Not available 08/14/2013 21:47:22 Maternal Grandfather Malignant neoplastic disease 55 stomac h cancer (previ ously record ed as Other Specif ied Cancer , not listed above) Not available 08/14/2013 21:47:22 Maternal Grandmother Malignant tumor of breast deceas ed in her 70's (previ ously record ed as Breast Cancer ) Not available 08/14/2013 21:47:22 Father Disorder of eye 66 catara cts-de ceased unknow n age (previ ously record ed as Other Specif ied Eye Disord er) Not available 08/14/2013 21:47:22 Father Glaucoma deceas ed unknow n age Not available 08/14/2013 21:47:22 Father Disorder of cardiovascul ar system weaken ed heart muscle unable to pump, high blood pressu re, deceas ed unknow n age (previ ously record ed as High Blood Pressu re, Other Heart /Vascu lar /DVT/P E) Not available 08/14/2013 21:47:22 Medical History Condition Response High Blood Pressure N Liver Disease - Other (not cancer) N Nervous System Disorders - Other N Depression N Blood Disorder (Excessive) Von Willebran d's or Other N Other Musculoskeletal Disorder N Allergies - seasonal / environmental Y Dysplasia, Vaginal - Personal History N Genital Warts - Personal History N Elevated cholesterol, triglycerides N Anxiety Disorder N Breast Problem Fibrocystic N Human Papilloma Virus HPV) N Arthritis Y Urinary Tract Infection (UTI), Personal Hx N Infertility N Kidney stones N Inherited Anemia / Sickle Cell, Thalasem ia N Immune Disorder N HIV / AIDS N Stroke - Unspecified Residual Late Effec t N Rheumatoid Arthritis N Polycystic Kidney Disease N Fibromyalgia N History of blood transfusion N Other skin disorder (not cancer or eczem a) N Dysplasia, Anal - Personal History N Diabetes, Type 1 N Colon Polyps, Personal Hx Y Liver Cirrhosis N Metabolic Syndrome X N Gallbladder Disease N Fibroids Uterine N Herpes, Genital N Migraines N Psychiatric Illness - Other N Osteoporesis N Heart Disease - Other N Blind or visual loss (Legally blind) N Constipation N Alzeiheimer's Disease N Osteopenia Y Heart Disease, cornary artery (including LA) N Anemia, unspecified Y Crohn's Disease (Regional Enteritis) N Asthma Y Other breast problem (not cancer) N Chronic Obstructive Airway Disease (COPD ) N Diabetes, Type 2 N Dementia - Not Alzeiheimer's N Mitral Valve Prolapse N Hypothyroidism - Low thyroid N Gastrointertinal Disease - Other N Breast Cancer N Chronic Renal Failure N Glaucoma N Urinary and/or Stool Incontinence N Defects or Inherited Disease N Eye, Ear, Nose, Mouth, Throat - Other N Headache, Not Migraine N Irritable Bowel Syndrome (IBS) N Dysplasia, Vulvar - Personal History N Varicose veins Y PMS/PMDD N Heartburn, Reflux, GERD N Other Blood Disorder N Lupus /Other Connective Tissue Disorder N Embolism Pulmonary/Other - Personal Hist ory N Polycystic Ovaries (PCOS) N Chlamydia - Personal History N Genetic Dx Carrier Status N Elevated BP without Dx of Hypertension N Vitamin D Deficiency Y Respiratory Disease - Other (Not COPD /a sthma) Y Endometriosis N Hyperthyroidism - Elevated thyroid N End Stage Renal Disease (Dialysis) N Malignant Hyperthermia due to Anesthesia N Transient Ischemic Attack (TIA) History N Kidney/Urinary Tract Disease - Other N Gonorrhea - Personal History N Parkinson's Disease N Impaired Vision (Corrected glasses/conta cts/surgery) N Chronic Interstitial Cystitis (Bladder P ain) N Other Cancer - List Primary Site N Syphilis - Personal History N Deaf or Hearing Loss N Genetic susceptibilty to cancer N Other Endocrine Disorder N Dysplasia, Cervical - Personal History N DVT (Blood clot) - Personal History N Uterine and/or Vaginal Prolapse N Eczema N History of Anaphylactic Reaction N Ulcerative colitis N Epilepsy N Vulvar Dystrophy / Lichen Sclerosis N Peptic ulcer N Other Gynecology Problem N Gynecological History Statement/Question Response Are you sexually active? Not currently Sexually Transmitted Disease Risk? No cu rrent sexual partner Date of LMP Age at Menarche 10 Age at First Child 24 Current control method / List NA Any sexual concerns or problems? N Attempting ? N Planning in next year? N Sexual orientation Heterosexual Date of Last Colonoscopy 10/24/2013 Number of lifetime sexual partners More than 5 Obstetrics History GPAL:G 3 P 2 0 1 2 Type Value Full Term 2 Spontaneous 1 Living 2 Total 3 Immunizations Vaccine Type Date Status Note Provider Nam e and Address Organization Details Recorded Time Influenza, split virus, trivalent, preservative 3 completed Thelma [facility] [facility] 08/14/2013 17:15:41 Influenza, split virus, trivalent, preservative 6 completed Adriana White [facility], [facility] [facility] 02/12/2016 15:38:42 Td (adult) 2 completed Samina Price [facility], [facility] [facility] 09/30/2011 11:42:00 Past Encounters Encounter ID Performer Location Encounter Start Date Encounter Closed Date Diagnosis/Indication Diagnosis SNOMED-CT Code Diagnosis ICD10 Code Diagnosis Note [id number] [facility] [address] [place] [address] [id number] 09/30/2011 10:58:45 09/30/2011 13:13:37 [id number] [facility] [address] [place] [address] [id number] 10/10/2012 13:59:29 10/10/2012 16:42:52 [id number] Adriana Chavez [facility] OFF[facility] [address] [place] [address] [id number] 10/24/2012 14:03:21 10/24/2012 15:21:21 [id number] Noemy Kimbrough [facility] [address] [place] [address] [id number] 03/18/2013 10:01:45 03/18/2013 12:18:33 Atypical squamous cells of undetermined significance on cervical Papanicolaou smear [id number] HR HPV negative [id number] Adriana Chavez [facility] OFF[facility] [address] [place] [address] [id number] 9 11/16/2012 14:04:20 11/16/2012 14:49:51 [id number] Thelma Stovall [facility] [address] [place] [address] [id number] 08/14/2013 15:49:51 08/14/2013 18:08:45 Vaginitis and vulvovaginitis [id number] Female gen ital organ symptoms 397081803 Increased frequency of urination 610496083 Mycotic in fection screening [id number] Carline Jefferson MD [facility] [address] [facility] ,[address] [place] [address] 02/12/2016 15:21:28 02/12/2016 17:11:33 Specialized medical examination 44570852 Z01.89 Gynecologi c examination 84935593 Z01.419 fasting labs completed with PCP 2015 Screening for malignant neoplasm of cervix 710581780 Z12.4 Screening procedure 2012 5006 Z13.9 Increased frequency of urination 458144353 R35.0 Screening for malignant neoplasm of colon 278216872 Z12.11 Screening for malignant neoplasm of breast 699124878 Z12.39 Screening for osteoporosis 606343542 Z13.820 Vitamin D deficiency 347 08917 E55.9 Health Concerns Section Related Observation LastModified by Organization Detai ls LastModified Time None Recorded Concern Status LastModified by Organization Details LastModified Time None Recorded Advance Directives Directive Y: Payers Encounter Date Sequence Insurance Name Policy Number Policy Tate Covered Member ID Tate Member ID Guarantor Name 10/24/2012 2 [facility] - 3 TIER PLAN [id number] Gricelda Salazar [id number] Gricelda Salazar 11/16/2012 2 [facility] [employer] [employer] [facility] [employer] [employer] PLAN - 3 TIER PLAN [id number] Gricelda Salazar [id number] Gricelda Salazar 03/18/2013 2 [facility] - 3 TIER PLAN [id number] Gricelda Salazar [id number] Gricelda Salazar 08/14/2013 2 [facility] ASSISTED INS PLAN - 3 TIER PLAN [id number] Gricelda Salazar [id number] Gricelda Salazar 08/14/2013 1 [place] Gricelda Salazar [id number] Gricelda Salazar 02/12/2016 1 [employer] - MEDICARE SOLUTIONS - GROUP MEDICARE ADVANTAGE (MEDICARE REPLACEMENT PPO) [id number] Gricelda Salazar [id number] Gricelda Salazar OBGyn Episode Ob Episode Information Episode Created Date Number of Fetuses Patient Bloodtype Patient rh Status Prepregnancy Weight lbs Domestic Partner Domestic Partner Phone Father Name Appliance Worker Status 09/18/19 12 1 CLOSED Fetus Data First Name Last Name Admitted to NICU Weight (g) Sex Living Outcome Pediatric Complications Fetus ID Race Codes Race Delivery Type 4876.11 4 F Full Term [id number] Myron Calculation Initial Myron Date Initial Exam Date Initial Exam Provider Initial Ultrasound Date Last Menstrual Period Date Ultra Sound Weeks Gestation 0 Eighteen To Twenty Week Myron Update Ultra Sound Date Fundal Height At Umbil Quickening Date Ultra Sound Latest Weeks Gestation Final Myron Confirmed By Final Myron Confirmed Date Final Myron Date Ultra Sound Latest Days Gestation 0 0 Menstrual History Last Menstrual Date Menses Monthly On Bcp Conception Prior Menses Frequency Hcg Plus Date Menarche Onset Age Delivery Information Delivery Date Delivery Type Labor Anesthesia Weeks Gestation Incision Type Labor Labor Length Hrs Delivered By Post Complications Tubal Sterilization Discharge Date Comments 5 40 Discharge Information Feeding Method Contraceptive Method Maternal HG B and HCT Levels Ob Episode Information Episode Created Date Number of Fetuses Patient Bloodtype Patient rh Status Prepregnancy Weight lbs Domestic Partner Domestic Partner Phone Father Name Appliance Worker Status 09/18/19 12 1 CLOSED Fetus Data First Name Last Name Admitted to NICU Weight (g) Sex Living Outcome Pediatric Complications Fetus ID Race Codes Race Delivery Type , Spontane ous [id number] Myron Calculation Initial Myron Date Initial Exam Date Initial Exam Provider Initial Ultrasound Date Last Menstrual Period Date Ultra Sound Weeks Gestation 0 Eighteen To Twenty Week Myron Update Ultra Sound Date Fundal Height At Umbil Quickening Date Ultra Sound Latest Weeks Gestation Final Myron Confirmed By Final Myron Confirmed Date Final Myron Date Ultra Sound Latest Days Gestation 0 0 Menstrual History Last Menstrual Date Menses Monthly On Bcp Conception Prior Menses Frequency Hcg Plus Date Menarche Onset Age Delivery Information Delivery Date Delivery Type Labor Anesthesia Weeks Gestation Incision Type Labor Labor Length Hrs Delivered By Post Complications Tubal Sterilization Discharge Date Comments 8 8 Discharge Information Feeding Method Contraceptive Method Maternal HG B and HCT Levels Ob Episode Information Episode Created Date Number of Fetuses Patient Bloodtype Patient rh Status Prepregnancy Weight lbs Domestic Partner Domestic Partner Phone Father Name Appliance Worker Status 09/18/19 12 1 CLOSED Fetus Data First Name Last Name Admitted to NICU Weight (g) Sex Living Outcome Pediatric Complications Fetus ID Race Codes Race Delivery Type 3542.55 352 M Full Term 2963 Myron Calculation Initial Myron Date Initial Exam Date Initial Exam Provider Initial Ultrasound Date Last Menstrual Period Date Ultra Sound Weeks Gestation 0 Eighteen To Twenty Week Myron Update Ultra Sound Date Fundal Height At Umbil Quickening Date Ultra Sound Latest Weeks Gestation Final Myron Confirmed By Final Myron Confirmed Date Final Myron Date Ultra Sound Latest Days Gestation 0 0 Menstrual History Last Menstrual Date Menses Monthly On Bcp Conception Prior Menses Frequency Hcg Plus Date Menarche Onset Age Delivery Information Delivery Date Delivery Type Labor Anesthesia Weeks Gestation Incision Type Labor Labor Length Hrs Delivered By Post Complications Tubal Sterilization Discharge Date Comments 9 40 Discharge Information Feeding Method Contraceptive Method Maternal HG B and HCT Levels
--- OUTSIDE RECORDS SUMMARY | 2024-08-14 17:57 | XMS_ITS | Clinical Summary ---
Author Organization [facility] Address [address] [place] [address] Care Team Providers Care Resort Housekeeper Name Role Phone Helio Hunter MD Primary Care Provider [phone] Columba Ryder APRN, SYSTEMS ANALYST-C Unavailable Julian Stewart MD Unavailable [phone] Kin Gutiérrez MD Unavailable Allergies Active Allergy Reactions Criticality Noted Date Comments Codeine Unknown 12/04/2019 Meperidine Unknown 12/04/2019 Morphine Unknown 12/04/2019 Oxycodone-Acetaminophen Other (see comment) Low 10/2021 Reaction: Pseudoephedrine Unknown 12/04/2019 Medications atorvastatin 20 MG tablet Take 1 tablet (20 mg total) by mouth daily. 0 Active SYMBICORT 160-4.5 MCG/ACT inhaler Inhale 1 puff into the lungs 2 (two) times daily. 0 Active triamterene-hyd roCHLOROthiazid e 37.5-25 MG capsule Take 2 capsules by mouth daily. 0 Active cyanocobalamin 1000 MCG/ML injection Inject 1 mL (1,000 mcg total) into the muscle monthly (monthly). 0 Active albuterol sulfate HFA 108 (90 Base) MCG/ACT inhaler Inhale 2 puffs into the lungs every 6 (six) hours as needed for Wheezing or Shortness of breath. Active aspirin EC (ECOTRIN) 81 MG tablet Take 1 tablet (81 mg total) by mouth daily. Active Calcium Carb-Cholecalci ferol (CALCIUM CARBONATE-VITAM IN D) 600-200 MG-UNIT tablet Take 1 tablet by mouth 2 (two) times daily. Active acetyl L-carnitine 500 MG capsule Take 1 capsule (500 mg total) by mouth daily. Active omega-3 fatty acid 500 MG capsule Take 1,200 mg by mouth daily. Active magnesium oxide 400 (241.3 Mg) MG tablet Take 250 mg by mouth daily. Active Coenzyme Q10 (CO Q10) 100 MG Cap Take 200 mg by mouth daily. Active niacin 500 MG CR capsule Take 1 capsule (500 mg total) by mouth nightly at bedtime. Active RESVERATROL OR Take 1 tablet by mouth daily. Active buPROPion XL 300 MG 24 hr tablet Take 1 tablet (300 mg total) by mouth daily. 1 Active Cholecalciferol (VITAMIN D3 OR) Take 7,800 Units by mouth daily. Active Alpha-Lipoic Acid 300 MG Tab Take 1 Dose by mouth daily with breakfast. Active AZELASTINE 137 MCG/SPRAY nasal spray 2 sprays by Nasal route 2 (two) times daily. 3 Active furosemide (LASIX) 20 MG tablet Take 1 tablet (20 mg total) by mouth daily as needed (prn). Active famotidine (PEPCID) 20 MG tablet Take 1 tablet (20 mg total) by mouth daily. 3 Active Multiple Vitamins-Minera ls (PRESERVISION AREDS 2) Cap Take 2 capsules by mouth daily. Active Ascorbic Acid (VITAMIN C) 100 MG tablet Take 2 tablets (200 mg total) by mouth daily. Active vitamin E 100 UNIT capsule Take 180 Units by mouth daily. Active carvedilol (COREG) 3.125 MG tablet take 1 tablet by mouth 2 times daily. 180 tablet 1 4 Active Active Problems Problem Noted Date Diagnosed Date Primary hypertension 08/10/2023 S/P right rotator cuff repair 05/12/2021 Coronary artery disease invo lving [place] coronary artery of [place] heart without angina pectoris 01/21/2020 Obstructive sleep apnea syndrome 01/21/2020 Mixed hyperlipidemia 01/21/2020 Family History Medical History Relation Comments Brain Cancer Brother Cancer Brother Glaucoma Father Hypertension Father Breast Cancer Maternal Grandmother Cancer Maternal Grandmother stomach cancer Maternal Grandmother Cerebrovascular Accident Mother Hypertension Mother Colon Cancer Paternal Aunt leukemia Paternal Grandmother Relation Status Comments Brother Father Maternal Grandmother Mother Paternal Aunt Paternal Grandmother Social History Tobacco Use Types Packs/Day Years Used Date Smoking Tobacco: Former Cigarettes Q uit: 1970 Smokeless Tobacco: Never Tobacco Cessation:Counseling Given: Not Answered Alcohol Use Standard Drinks/Week Comments Never 0 [...] Sign Reading Time Taken Comments Blood Pressure 102/61 08/10/2023 9:10 AM CDT Pulse 67 08/10/2023 9:10 AM CDT Temperature 36.9 C (98.4 F) 08/10/2023 9:10 AM CDT Respiratory Rate 16 08/10/2023 9:10 AM CDT Oxygen Saturation 95% 08/10/2023 9:10 AM CDT Inhaled Oxygen Concentration - - Weight 90.9 kg (200 lb 6.4 oz) 08/10/2023 9:10 A M CDT Height 147.3 cm (4' 9.99 ) 08/10/2023 9:10 AM CD T Body Mass Index 41.89 08/10/2023 9:10 AM CDT Plan of Treatment Health Maintenance Due Date Last Done Comments ASCVD Statin 1948 Hepatitis C 1968 DTaP, Tdap and Td Vaccines ( 1 - Tdap) 04/27/2001 04/26/2001 Annual Medicare Wellness Visit 2013 Dexa Scan (General) 2013 Pneumococcal Vaccine: 50+ Years (2 of 2 - PPSV23) 03/25/2015 01/28/2015 RSV Immunization or 60+ Years (1 - 1-dose 75+ series) 2023 COVID-19 Vaccine ( - 2023-2 5 season) 2023 Meningococcal Vaccine Aged Out 04/06/2017 No galilea amaris eligible based on patient's age to complete this topic Zoster Vaccines Completed 03/03/2019, 12/14/2018, 04/26/2013 Meningococcal B Vaccine Aged Out No l onger eligible based on patient's age to complete this topic RSV Immunizations Under 20 Months Aged Out No longer eligible b ased on patient's age to complete this topic [place] [address] [place] [address] Advance Directives * Full Code (Latest Code Status on File) Date Activated Date Inactivated Comments 08/10/2023 1:29 PM 08/10/2023 3:59 PM Care Teams Resort Housekeeper Relationship Specialty Start Date End Date Helio Hunter MD [address] [place] [phone] PCP - General FAMILY PRACTICE 11/29/19 Columba Ryder, ELECTRONICS RECYCLER, SYSTEMS ANALYST-C [address] [place] [phone] NURSE PRACTITIONER 2/5/21 Julian Stewart MD [address] [place] [address] Surgeon ORTHOPAEDIC SURGERY 02/17/21 Kin Gutiérrez MD [address] [place] [address] Consulting Physician INTERVENTIONAL CARDIOLOGY 12/07/23
--- OUTSIDE RECORDS SUMMARY | 2024-08-14 17:57 | XMS_ITS | Encounter Summary ---
Author Organization [facility] Address [address] [place] [address] Care Team Providers Care Operator Specialist Communications Name Role Phone Helio Hunter MD Primary Care Provider Porfirio Restrepo MD Unavailable Columba Ryder APRN, SUPERVISOR [employer] Unavailable [phone] Julian Stewart MD Unavailable [phone] Kin Gutiérrez MD Unavailable [phone] Encounter Details Date Type Department Care Team (Late st Contact Info) Description 07/10/2017 Abstract [facility] CONVERSION [address] [place] [address] , Priya Pierson MD Social History Tobacco Use Types Packs/Day Years Used Date Smoking Tobacco: Former Comments Unknown Sex and Gender Information Value Date Recorded Sex Assigned at Not on file Legal Sex Female 10:25 PM CDT Gender Identity Not on file Sexual Orientation Not on file documented as of this encounter Plan of Treatment Not on file documented as of this encounter Visit Diagnoses Not on filedocumented in this encounter Additional Health Concerns Infection Onset Date Last Indicated Resolved Time COVID-19 Rule Out 07/19/2020 07/19/2020 07/20/2020 12:40 PM CDT COVID-19 Rule Out 07/30/2020 07/30/2020 07/31/2020 5:36 PM CDT documented as of this encounter Care Teams Operator Specialist Communications Relationship Specialty Start Date End Date Helio Hunter MD [address] [place] [phone] PCP - General FAMILY PRACTICE 11/29/19 Porfirio Restrepo MD [address] [place] [phone] Consulting Physician CARDIOVASCULAR DISEASE 11/29/19 Columba Ryder, BEHAVIORAL HEALTH COUNSELOR, SUPERVISOR [employer] [address] [facility] [address] [place] [address] NURSE PRACTITIONER 05/31/20 Julian Stewart MD [address] [place] [address] Surgeon ORTHOPAEDIC SURGERY 02/17/21 Kin Gutiérrez MD [address] [place] [address] Consulting Physician INTERVENTIONAL CARDIOLOGY 12/07/23 documented as of this encounter
--- OUTSIDE RECORDS SUMMARY | 2024-08-14 17:57 | XMS_ITS | Data Portability ---
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 Patient will come back in a year unless there are new symptoms. Not available 08/24/2022 10:05:35 08/27/2023 08/27/2023 Annual gynecological exam performed. Patient will come back in a year unless there are new symptoms. Not available 08/27/2023 09:27:29 Plan of Treatment Reminders Order Date Submit Date Provider Last Modified By Organization Details Last Modified Time Details Appointments [facility]- EST 025 09:30AM Eligio CARCAMO MD Not available Not available Not available Lab None record ed. Referral None record ed. Procedures None record ed. Surgeries None record ed. Imaging None record ed. Medication Orders None record ed. Patient TargetsNo targets recorded. Patient InstructionsNo instructions recorded. Reason for Referral None Reported. Results Created Date Observation Date Name Description Value Unit Range Abnormal Flag Note LastModifiedBy Organization Detail LastModifiedTime 08/25/19 23 08/24/2022 IMAGE GUIDE D PAP AND HPV REGAR DLESS image guided Pap, HPV regardless of Pap result SEE RESULT S BELOW CASE REPOR T: Cytol ogy Gynec ologi mira Repor t Case: [id number] Autho rironnie g Provi milan: Mo Carcamo MD Colle cted: 08/24 1631 Order ing Locat ion: [place] Path[facility] log[facility] Recei vida: 08/25 0241 First Scree n: Strut z, Willi am, CT Rescr een: Foster Sr Speci men: Jony choe Pap - Image d, Cervi x STATE MENT OF ADEQU ACY: Unsat isfac tory for evalu ation . FINAL DIAGN OSIS: Unsat isfac tory for evalu ation . Scant squam ous cellu larit y due to exces s obscu ring infla mmato ry cells . Elect jessica gillespie akash d by Foster Sr on 023 at 4:01 PM ----- ----- ----- ----- ----- ----- ----- ----- ----- ----- ----- ----- ----- ----- ----- ----- ----- ---- HPV RESUL TS: HPV mRNA E6/E7 : No HPV mRNA Detec micky NOTE: This high risk HPV mRNA assay detec ts fourt een high- risk HPV types (16, 18, 31, 33, 35, 39, 45, 51, 52, 56, 58, 59, 66, 68) witho ut diffe renti ation . COMME NT: This speci men was revie wed by a Cytot echno logis t and/o r Patho logis t (as indic ated in this repor t) after evalu ation using the Thinp rep Imagi ng Syste m. CLINI MIRA INFOR MATIO N: Menst rual Statu s: LMP (if appli cable ): Clini mira Histo ry/Pr eviou s Pap: Type of Neopl carrie (if appli cable ): Signi fican t Clini mira Findi ngs: Other Histo ry: Hormo mell (if appli cable ): Not Available [facility] (Lab) [address], [place], [address], 08/26/2022 17:03:53 08/27/19 24 08/27/2023 IMAGE GUIDE D PAP AND HPV REGAR DLESS image guided Pap, HPV regardless of Pap result SEE RESULT S BELOW CASE REPOR T: Cytol ogy Gynec ologi mira Repor t Case: [id number] Autho aldo herndon Provi milan: Mo Carcamo MD Colle cted: 08/26 1212 Order ing Locat ion: [place] Recei vida: 08/29 0938 First Scree n: Sania Multani, CT Speci men: Jony choe Pap - Image d, Cervi x STATE MENT OF ADEQU ACY: Satis facto ry for evalu ation Trans forma tion zone compo nent canno t be defin itive ly ident ified due to the prese nce of atrop hy or other hormo nal ge es ----- ----- ----- ----- ----- ----- ----- ----- ----- ----- ----- ----- ----- ----- ----- ----- ----- ---- FINAL DIAGN OSIS: Negat conor for Intra epith elial Majo espana or Sharmila madison (NIL) . Atrop hic cell jn pat. Elect jessica gillespie akash d by Sania Multani, CT on 024 at 1:10 PM ----- ----- ----- ----- ----- ----- ----- ----- ----- ----- ----- ----- ----- ----- ----- ----- ----- ---- HPV RESUL TS: HPV mRNA E6/E7 : No HPV mRNA Detec micky NOTE: This high risk HPV mRNA assay detec ts fourt een high- risk HPV types (16, 18, 31, 33, 35, 39, 45, 51, 52, 56, 58, 59, 66, 68) witho ut diffe renti ation . COMME NT: This speci men was revie wed by a Cytot echno logis t and/o r Patho logis t (as indic ated in this repor t) after evalu ation using the Thinp rep Imagi ng Syste m. CLINI MIRA INFOR MATIO N: Menst rual Statu s: LMP (if appli cable ): Clini mira Histo ry/Pr eviou s Pap: Type of Neopl carrie (if appli cable ): Signi fican t Clini mira Findi ngs: Other Histo ry: Hormo mell (if appli cable ): PAP EDUCA LAURA L NOTE: The Pap Test is a scree daija test with an inher ent false negat conor rate. Liqui d-bas ed sampl ing may decre ase, but will not elimi matthew, false negat conor resul ts. A negat conor resul t does not precl ude the prese nce and/o r devel opmen t of disea se, since the prese nce of abnor mal cells in the sampl e depen ds on the locat ion of the lesio n and sampl ing techn ique. Annmarie nued regul ar scree daija is the best metho d of cance r preve ntion . If repor micky cytol ogic findi ng do not corre late with physi mira and/o r histo rical findi ngs, furth er inves tigat ion is recom mayelin d, as clini yesenia cosme nted. Not Available [facility] (Lab) [address], [place], [address], 09/01/2023 14:13:26 12/30/19 23 12/26/2022 MAMMO , scree daija, bilat eral No observ ation record ed. [facility] [address], [place], [address], 12/31/2022 10:07:53 12/31/19 24 12/31/2023 imagi ng/di agnos tic resul t No observ ation record ed. [facility] [address] [place], [address], 01/06/2024 11:49:35 Result Notes None recorded. 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) w/o abn findings; Recorded Elsewhere : No Locati on: [facility] So urce: EHR Chron ic: N Practic e ID: [id number] Bill able Time: 08:45:00 AM Not Available [facility] 0 18:32:18 Radiologi c finding [id number] Active 2018 Oth abn and inconclus conor findings on dx imaging of breast;Re corded Elsewhere : No Locati on: [facility] So urce: EHR Chron ic: N Practic e ID: [id number] Bill able Time: 09:32:39 AM Not Available [facility] 0 18:32:18 Disorder of breast 93921980 Active 2018 Disorder of breast, unspecifi ed;Record ed Elsewhere : No Locati on: [facility] So urce: EHR Chron ic: N Practic e ID: [id number] Bill able Time: 09:32:39 AM Not Available [facility] 0 18:32:18 Screening for malignant neoplasm of rectum Active 2017 Encounter for screening for malignant neoplasm of rectum;Re corded Elsewhere : No Locati on: [facility] So urce: EHR Chron ic: N Practic e ID: [id number] Bill able Time: 08:30:00 AM Not Available [facility] 0 18:32:18 Evaluatio n finding Active 2019 Hematuria , unspecifi ed;Record ed Elsewhere : No Locati on: [facility] So urce: EHR Chron ic: N Practic e ID: [id number] Bill able Time: 04:30:00 PM Not Available [facility] 0 18:32:19 Lump of axillary tail of right breast 13295778153 4106 Active 2018 Unspecifi ed lump in axillary tail of the right breast;Pr actice ID: [id number] Not Available [facility] 0 18:32:19 Problem Notes None recorded. Procedures Surgical History Date Name Laterality Status Provider Name and Address Organization Details Recorded Time 2 Date of Last Mammogram completed [facility] 08/24/2022 10:40:49 2 Date of Last Pap Smear completed [facility] 08/24/2022 10:39:47 procedure on neck completed [facility] 08/24/2022 10:32:36 procedure on knee completed [facility] 08/24/2022 10:32:44 procedure on foot completed [facility] 08/24/2022 10:32:52 procedure on hand completed [facility] 08/24/2022 10:33:01 Dilation and Curettage completed [facility] 08/24/2022 10:33:09 Imaging Results Imaging Date Name Status LastModified by Organiz ation Details LastModified Time 12/26/2022 MAMMO, screening, bilateral completed [facility] [address], [address], 12/31/2022 10:07:53 12/31/2023 imaging/diagno stic result completed [facility] [address] [place], [address], 01/06/2024 11:49:35 Procedure Notes None recorded. Medical Equipment None Reported. Allergies Allergen ID Allergen Name Allergen Category Reaction Reaction Severity Criticality Documentation Date Start Date Code Code System Note Provider Name and Address Organization Details Recorded Time 80748 morphine medicatio n Not available Not available Not available 04/12/2020 7096 RxNorm Renetta britt, [facility] 3 10:07:25 28875 codeine medicatio n Not available Not available Not available 04/12/2020 2670 RxNorm Renetta britt [facility] 3 10:07:29 76885 pseudoeph edrine Not available Not available Not available Not available 04/12/2020 8896 RxNorm Renetta Jessica [facility] 3 10:07:35 85709 meperidin e medicatio n Not available Not available Not available 08/24/2022 6754 RxBrandon Jackson [facility] 3 10:07:15 Medications Name Sig Start Date Stop Date Status Note LastModified by Organization Details LastModified Time amoxicill in 500 mg capsule TAKE 4 CAPSULES BY MOUTH 1 HOUR PRIOR TO DENTAL APPOINTM ENT 08/24 completed Not Available Not Available Not Available atorvasta tin 20 mg tablet TAKE 1 TABLET BY MOUTH EVERY DAY active Not Available Not Available No t Available tramadol 50 mg tablet TAKE 1 TABLET BY MOUTH EVERY 4-6 HOURS NEEDED FOR PAIN 08/24 completed Not Available Not Available Not Available triamtere ne 37.5 mg-hydroc hlorothia zide 25 mg capsule TAKE 2 CAPSULES BY MOUTH DAILY active Not Available Not Available No t Available carvedilo l 3.125 mg tablet TAKE 1 TABLET BY MOUTH 2 TIMES DAILY. active Not Available Not Available No t Available amoxicill in 875 mg tablet TAKE 1 TODAY, THEN TAKE 1 TABLET BY MOUTH 2 TIMES A DAY UNTIL GONE 08/24 completed Not Available Not Available Not Available famotidin e 20 mg tablet TAKE 1 TABLET BY MOUTH TWICE A DAY active Not Available Not Available No t Available Zoloft 50 mg tablet take 1 tablet by oral route every day active Prescrib ed Elsewher e: Yes Loca tion: [facility] M odify By: lsleena Clayton ncounter DateTime : 03/17/20 17 10:30:00 AM Not Available Not Available Not Available cyanocoba ap (vit B-12) 1,000 mcg/mL injection solution INJECT 1 ML MONTHLY DIRECTED active Not Available Not Available No t Available BD Luer-Luna Syringe 3 mL 25 gauge x 1 1 (ONE) EACH MONTHLY active Not Available Not Available No t Available omeprazol e 20 mg capsule,d elayed release active Not Available Not Available Not Available furosemid e 20 mg tablet TAKE 1 TABLET BY MOUTH EVERY DAY NEEDED active Not Available Not Available No t Available estradiol 0.5 mg tablet active Not Available Not Available Not Available metoprolo l succinate ER 25 mg tablet,ex tended release 24 hr 08/24 completed Not Available Not Available Not Available azelastin e 137 mcg (0.1 %) nasal spray SPRAY 2 SPRAYS INTO EACH NOSTRIL TWICE A DAY active Not Available Not Available No t Available Dyrenium 100 mg capsule take 1 capsule by oral route every day after a meal 08/24 completed Prescrib ed Elsewher e: Yes Loca tion: [facility] odify By: lawrence glass DateTime : 03/17/20 10:30:00 AM Not Available Not Available Not Available ipratropi um bromide 21 mcg (0.03 %) nasal spray INSTILL 2 SPRAYS INTO EACH NOSTRIL 2 TIMES A DAY active Not Available Not Available No t Available Bactrim DS 800 mg-160 mg tablet take 1 tablet by oral route twice a day for 3 days 08/24 completed Prescrib ed Elsewher e: No Locat ion: [facility] odify By: karol young DateTime : 05/18/19 09:39:28 AM Not Available Not Available Not Available Estrace 0.01% (0.1 mg/gram) vaginal cream insert (1G) apply external ly twice weekly 08/24 completed Prescrib ed Elsewher e: No Locat ion: [facility] odify By: christiane Goel nter DateTime : 03/17/20 17 10:30:00 AM Not Available Not Available Not Available bupropion HCl XL 300 mg 24 hr tablet, extended release active Not Available Not Available Not Available nitrofura ntoin monohydra te/macroc rystals 100 mg capsule TAKE 1 CAPSULE BY MOUTH TWICE A DAY FOR 5 DAYS active Not Available Not Available No t Available magnesium active Not Available Not Solange ilable Not Available Vitamin C active Not Available Not Solange ilable Not Available calcium active Not Available Not Avail able Not Available niacin active Not Available Not Availa ble Not Available Fish Oil active Not Available Not Avai lable Not Available Vitamin D3 active Not Available Not Available Not Available Acetyl L-Carniti ne active Not Available Not Available Not Available alpha lipoic acid active Not Available Not Available Not Available PreserVis ion AREDS active Not Available Not Available No t Available Symbicort 160 mcg-4.5 mcg/actua tion HFA aerosol inhaler TAKE 2 PUFFS BY MOUTH TWICE A DAY active Not Available Not Available No t Available CoQ-10 active Not Available Not Availa ble Not Available Vagifem 10 mcg vaginal tablet insert 1 tablet by vaginal route every day for 14 days then 1 tablet (10 mcg) 2 times per week for duration of use 08/24 completed Prescrib ed Elsewher e: Yes Loca tion: [facility] odify By: alvaradoose E ncounter DateTime : 10/18/19 19 09:32:39 AM Not Available Not Available Not Available resveratr ol active Not Available Not Available Not Available ProAir RespiClic k 90 mcg/actua tion breath activated INHALE 1-2 PUFFS 4 TIMES A DAY NEEDED active Not Available Not Available No t Available Breo Ellipta 200 mcg-25 mcg/dose powder for inhalatio n active Not Available Not Available Not Available BinaxNOW COVID-19 Ag Self Test kit REFER TO PACKAGE DIRECTIO NS active Not Available Not Available No t Available Alive Hair, Skin and Nails active Not Available Not Available Not Available Paxlovid 150 mg-100 mg tablets in a dose pack (Moderate Renal Dose) BY MOUTH USE DIRECTED PER INSTRUCT IONS IN PACK active Not Available Not Available No t Available Ozempic 0.25 mg or 0.5 mg (2 mg/3 mL) subcutane ous pen injector DIRECTED . SOLUTION PEN-INJE CTOR 0.25MG UNDER THE SKIN WEEKLY X 1 MONTH THEN 0.5MG WEEKLY active Not Available Not Available No t Available Vitals Date Recorded Body height Body mass index (BMI) Body weight Systolic blood pressure Diastolic blood pressure Provider Name and Address Organization Details Last Updated DateTime 08/24/2022 146.05 cm 40.2 kg/m2 34444.96 g 131 mm[Hg] 77 mm[Hg] Renetta Jessica [facility] 3 10:30:34 Date Recorded Body height Body mass index (BMI) Body weight Systolic blood pressure Diastolic blood pressure Provider Name and Address Organization Details Last Updated DateTime 08/27/2023 146.05 cm 43 kg/m2 55855.66 g 116 mm[Hg] 73 mm[Hg] Ramilaboy Arroyo [facility] 4 09:28:35 Social History Question Answer Notes LastModified by Organizat ion Details LastModified Time Tobacco Smoking Status Never Smoker Renetta britt [facility] 08/24/2022 10:32:24 Are You Blind Or Do You Have Difficulty Seeing? No [email or web address] Information n ot available 08/27/2023 In The 14 Days Before Symptom Onset, Have You Had Close Contact With A Laboratory-confirm ed COVID-19 While That Case Was Ill? No [email or web address] Information n ot available 08/27/2023 In The 14 Days Before Symptom Onset, Have You Had Close Contact With A Person Who Is Under Investigation For COVID-19 While That Person Was Ill? No [email or web address] Information not available 08/27/2023 Have You Been To An Area Known To Be High Risk For COVID-19? No [email or web address] Information not available 08/27/2023 Are You Deaf Or Do You Have Serious Difficulty Hearing? No Information not available 08/27/2023 Do You Use Your Seat Belt Or Car Seat Routinely? Yes [email or web address] Information not available 08/27/2023 Do You Have Smoke And Carbon Monoxide Detectors In Your Home? Yes [email or web address] Information not available 08/27/2023 Do You Use Sunscreen Routinely? Yes [email or web address] Information not available 08/27/2023 Sex: Unknown Functional Status Question Answer Note LastModified by Organizat ion Details LastModified Time Do you have difficulty walking or climbing stairs? No [email or web address] Information not available 08/27/2023 Are you able to walk? YESWOREST [email or web address] Information not available 08/27/2023 Are you able to care for yourself? Yes [email or web address] Information not available 08/27/2023 Do you have difficulty dressing or bathing? No Information not available 08/27/2023 Mental Status None recorded. Family History Relationship Description Onset Age of this Age Resolved Age Notes LastModified by Organization Details LastModified Time Sister Anemia Not available 08/24/2022 10:42:18 Sister Asthma Not available 08/24/2022 10:42:29 Sister Hyperlipidem ia [email or web address] Not available 2023 09:07:40 Maternal Grandmother Malignant tumor of breast Not available 2022 10:42:43 Paternal Aunt Malignant tumor of cervix Not available 2022 10:42:57 Paternal Aunt Malignant tumor of colon Not available 2022 10:43:17 Mother Heart disease Not available 2022 10:43:31 Mother Hyperlipidem ia [email or web address] Not available 2023 09:07:40 Father Heart disease Not available 2022 10:43:31 Father Hyperlipidem ia [email or web address] Not available 2023 09:07:40 Brother Hyperlipidem ia [email or web address] Not available 2023 09:07:40 Medical History Condition Response Other Y History of abnormal pap Y Heart Disease Y Anemia Y Asthma Y Gynecological History Statement/Question Response Abnormal Pap Y Date of Last Mammogram 11/24/2021 Date of LMP 04/26/1998 Age of first menstrual cycle 10 Date of Last Pap Smear 04/26/2021 Current Control Method Menopause LMP Approximate Obstetrics History GPAL:G 3 P 2 0 1 2 Type Value Full Term 2 Spontaneous 1 Living 2 Total 3 Past Encounters Encounter ID Performer Location Encounter Start Date Encounter Closed Date Diagnosis/Indication Diagnosis SNOMED-CT Code Diagnosis ICD10 Code Diagnosis Note [id number] Harsha Carcamo MD [place] [address] [address] 08/24/2022 09:52:03 08/24/2022 11:08:23 Gynecologic examination 12730654 Z01.419 Annual gynecologi mira exam performed. Patient will come back in a year unless there are new symptoms. Suggest Calcium with Vitamin D if not eating in diet. Patient advised to get annual flu shot. Recommend yearly physicals and preform monthly breast exams. Genetic testing is available for patients with family history of cancer. Engage in safe sexual practices, use condoms. Encouraged to have daily exercise. Avoid tobacco and illicit drugs, moderation of alcohol. If BMI greater than 25 dietary consult advised. If you have any questions please call or email. Mammogram - [ordered] Colonoscop y - done Bone Density - ordered Cholestero l - done Pap - today [id number] Harsha Carcamo MD [place] [address] [address] 08/27/2023 09:06:29 08/27/2023 10:27:07 Gynecologic examination 87129703 Z01.419 Annual gynecologi mira exam performed. Patient will come back in a year unless there are new symptoms. Suggest Calcium with Vitamin D if not eating in diet. Patient advised to get annual flu shot. Recommend yearly physicals and preform monthly breast exams. Genetic testing is available for patients with family history of cancer. Engage in safe sexual practices, use condoms. Encouraged to have daily exercise. Avoid tobacco and illicit drugs, moderation of alcohol. If BMI greater than 25 dietary consult advised. If you have any questions please call or email. Mammogram - [ordered] Colonoscop y - done Bone Density - ordered Cholestero l - done Pap - today Health Concerns Section Related Observation LastModified by Organization Detai ls LastModified Time None Recorded Concern Status LastModified by Organization Details LastModified Time None Recorded Advance Directives Directive None Recorded Payers Encounter Date Sequence Insurance Name Policy Number Policy Tate Covered Member ID Tate Member ID Guarantor Name 08/24/2022 1 [employer] (MEDICARE REPLACEMENT PPO) [id number] Cyndee Salazar [id number] Cyndee Salazar 08/27/2023 1 [employer] (MEDICARE REPLACEMENT PPO) [id number] Cyndee Salazar [id number] Cyndee Salazar Notes Date Note Type Note Provider Name and Address Organization Details Recorded Time 08/24/2022 text/html Annual GYNReport ed bypatient.History:n o gynecologic complaints Urinary symptoms:No hematuria Vulva:No genital lesion Vagina:Normal vaginal discharge Breast:No breast pain; No breast lump Menopausal Symptoms:No menopausal symptoms Psychological symptoms:No depression; No anxiety Preventive measures:Encourage self breast examination; Encourage regular exercise Harsha Carcamo MD [address], [place], [address], [facility] 08/24/2022 11:08:22 08/27/2023 text/html Annual GYNReport ed bypatient.History:n o gynecologic complaints Menstrual cycle:Normal menses Urinary symptoms:No hematuria Vulva:No genital lesion Vagina:Normal vaginal discharge Breast:No breast pain; No breast lump Current Contraception:Satis fied with current contraception Sexual complaints:No sexual complaints; No pain during intercourse Menopausal Symptoms:No menopausal symptoms; Normal vaginal lubrication Psychological symptoms:No depression; No anxiety Preventive measures:Encourage self breast examination; Encourage regular exercise Harsha Carcamo MD [address], [place], [address], [facility] 08/27/2023 10:19:54 OBGyn Episode Ob Episode Information Episode Created Date Number of Fetuses Patient Bloodtype Patient rh Status Prepregnancy Weight lbs Domestic Partner Domestic Partner Phone Father Name [employer] Instructor Status 08/25/19 23 1 CLOSED Fetus Data First Name Last Name Admitted to NICU Weight (g) Sex Living Outcome Pediatric Complications Fetus ID Race Codes Race Delivery Type , Spontane ous [id number] Myron Calculation Initial Myron Date Initial Exam [...] Complications Tubal Sterilization Discharge Date Comments 8 Discharge Information Feeding Method Contraceptive Method Maternal HG B and HCT Levels Ob Episode Information Episode Created Date Number of Fetuses Patient Bloodtype Patient rh Status Prepregnancy Weight lbs Domestic Partner Domestic Partner Phone Father Name [employer] Instructor Status 08/23/19 23 1 CLOSED Fetus Data First Name Last Name Admitted to NICU Weight (g) Sex Living Outcome Pediatric Complications Fetus ID Race Codes Race Delivery Type 4876.11 4 M Full Term [id number] Primary Myron Calculation Initial Myron Date Initial Exam [...] Tubal Sterilization Discharge Date Comments 5 40 Ousmane Discharge Information Feeding Method Contraceptive Method Maternal HG B and HCT Levels Ob Episode Information Episode Created Date Number of Fetuses Patient Bloodtype Patient rh Status Prepregnancy Weight lbs Domestic Partner Domestic Partner Phone Father Name [employer]otive [employer] Instructor Status 08/23/19 23 1 CLOSED Fetus Data First Name Last Name Admitted to NICU Weight (g) Sex Living Outcome Pediatric Complications Fetus ID Race Codes Race Delivery Type 3543.46 0704 M Full Term [id number] Repeat Myron Calculation Initial Myron Date Initial Exam [...] Tubal Sterilization Discharge Date Comments 9 40 Rommel Discharge Information Feeding Method Contraceptive Method Maternal HG B and HCT Levels
== END 2024-08-14 16:35 | disposition home or self-care (01) ==
PROVIDERS: PCP Family Medicine; Visit Provider Family Medicine
DX: M79.89 Other specified soft tissue disorders (principal); M19.071 Primary osteoarthritis, right ankle and foot; Z98.890 Other specified postprocedural states
CPT/HCPCS: 73630; 93971

== ENCOUNTER 2024-10-05 12:41 | Outpatient (CLI) | payer MEDICARE, SELFPAY ==
--- NOTE | ~2024-10-05 | XR_ITS ---
AP and lateral views of the left hip Clinical history: Pain Findings: No acute fracture or dislocation is seen. Osseous alignment is anatomic. There is minimal d egenerative change of the left hip joint. Soft tissues are unremarkable. Impression: Minimal degenerative change of the left hip joint. Reviewed, dictated and finalized at location . Impression: Minimal degenerative change of the left hip joint.
--- OUTSIDE RECORDS SUMMARY | 2024-10-05 13:07 | XMS_ITS | Encounter Summary ---
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
--- OUTSIDE RECORDS SUMMARY | 2024-10-05 13:07 | XMS_ITS | Encounter Summary ---
Author Organization [facility] Address [address] [place] [address] Phone Care Team Providers Care Hunting And Fishing Guide Name Role Phone Helio Hunter MD Primary Care Provider Encounter Details Date Type Department Care Team (Latest Contact Info) Description 10/13/2019 Orders Only [facility] Scanning, Provider Social History Tobacco Use Types Packs/Day Years Used Date Smoking Tobacco: Former Smokeless Tobacco: Never Comments No Sex and Gender Information Value Date Recorded Sex Assigned at Not on file 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
--- OUTSIDE RECORDS SUMMARY | 2024-10-05 13:08 | XMS_ITS | Clinical Summary ---
Author Organization [facility] Address [address] [place] [address] Care Team Providers Care Adobe Layer Name Role Phone Helio Hunter MD Primary Care Provider [phone] Allergies Active Allergy Reactions Criticality Noted Date [...] vaginal cream Insert into the vagina. Active mkpgi-1-dps-epa -dpa-fish oil 1,050-1,200 mg capsule Take 1 [...] 03/09/20 22 Active omega3/dha/epa/ fish oil/vit D3 (qv-9-rzh-epa-f vanessa oil-vit D3) 120 mg-180 mg -1,000 [...] Type Department Care Team Description 07/14/2024 Telephone [facility] Cardiology [address] [place] [address] [place] [address] Kev Snell MD 07/05/2024 3:45 PM CDT Lab [facility] Endocrinology Metabolism and Lipid [address] [place] [address] [place] [address] Coronary artery calcification; Family history of premature CAD; Iron deficiency 07/05/2024 2:30 PM CDT Office Visit [facility] Cardiology [address] [place] [address] [place] [address] Kev Snell MD Coronary artery calcification (Primary Dx); Iron deficiency; Family history of premature CAD; Primary hypertension 07/05/2024 Results Follow-Up [facility] Cardiology [address] [place] [address] [address] [place] [address] [place] [address] Kev Snell MD ECG 12 lead, Lipoprotein a (LPa), Ferritin from Last 3 Months Surgical History Surgery Date Site/Laterality Comments FOOT SURGERY Foot Surgery - (Added by Conv) KNEE SURGERY Knee Surgery - (Added by Conv) HAND SURGERY Hand Surgery - (Added by TW Conv) [place] DELIVERY ONLY Section Low Transverse - (Added by TW Conv) [place] DILATION & CURETTAGE DX&/THER NONOBSTETRIC Dilation And Curettage - (Added by TW Conv) [place] BX BREAST NEEDLE CORE W/O IMAGING GUIDANCE [...] on file 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 Gender Identity Not on file Sexual Orientation Not on file Obstetrics History Last Filed Vital Signs Vital Sign Reading Time Taken Comments Blood Pressure 128/84 07/05/2024 2:25 PM CDT Pulse 83 07/05/2024 2:25 PM CDT Temperature 36.2 C (97.1 F) 07/01/2021 10:06 AM HIGH SCHOOL HISTORY TEACHER Respiratory Rate 16 07/01/2021 10:06 AM HIGH SCHOOL HISTORY TEACHER Oxygen Saturation 96% 07/05/2024 2:25 PM CDT Inhaled Oxygen Concentration - - Weight 77.4 kg (170 lb 9.6 oz) 07/05/2024 2:25 P M CDT Height 142.2 cm (4' 8) 07/05/2024 2:25 PM CDT Body Mass Index [...] Read Routine (OP Routine) 02/28/2018 8:56 AM HIGH SCHOOL HISTORY TEACHER Encounter for screening mammogram for malignant neoplasm of breast BONE MINERAL DENSITY 12/24/2014 from Last 3 Months or Most Recently Relevant to Health Maintenance Results * Lipoprotein a (LPa) (07/05/2024 3:49 PM CDT) Lipoprotein (A) 15.7 <=75.0 nmol/L [facility]: An LP(a) level >100 nmol/L is [...] its performance characteristics have been determined by [facility]. This assay in units of nmol/L has not been cleared or approved by the FDA, although they are provided by the grocery checker and widely accepted as the preferred units for reporting. [facility] is regulated under CLIA as qualified to perform high-complexity testing. Blood 07/05/2024 3:49 PM CDT 07/05/2024 4:11 PM CDT Kev Snell MD LAB BLOOD ORDERABLES Final Re sult Performing Organization Address [facility] Co de Phone Number [facility] * Ferritin (07/05/2024 3:49 PM CDT) Ferritin 66.1 10.0 - 291.0 ng/mL [facility] Blood 07/05/2024 3:49 PM CDT 07/05/2024 4:11 PM CDT Kev Snell MD LAB BLOOD ORDERABLES Final Re sult Performing Organization Address [facility] Co de Phone Number [facility] * ECG 12 lead (07/05/2024 2:21 PM CDT) us Kev Snell MD ECG ORDERABLES Edited Result - Final * Screening Mammogram Bilateral W Caryn (02/28/2018 8:56 AM HIGH SCHOOL HISTORY TEACHER) Anatomical Region Laterality Modality Breast Bilateral Digital Radiogra phy Narrative 03/03/2018 2:09 PM HIGH SCHOOL HISTORY TEACHER Mammogram Technique: Bilateral Digital Breast Tomosynthesis, Bilateral C-view 2D Screening mammogram. Views obtained: bilateral craniocaudal and bilateral mediolateral oblique. Computer Aided Detection was performed. Mammogram Findings: The present examination has been compared to prior imaging studies performed at [facility] on 11/26/2014, 12/02/2015 and 12/04/2016. There are [...] compared to prior imaging studies performed at [facility] on 11/26/2014, 12/02/2015 and 12/04/2016. There are scattered areas of fibroglandular density. There is no suspicious abnormality in either breast. Impression: Annual screening mammography is recommended. OVERALL FINAL ASSESSMENT: BI-RADS CATEGORY 1: Negative. Steff MOLINA IMG MAMMO PROCEDURES Final Result * BONE MINERAL DENSITY (12/24/2014) Anatomical Region Laterality Modality Radiographic Shannan ging Narrative 12/24/2014 Ordered by an unspecified provider. Historical Provider IMG DXA PROCEDURES Final Result from Last 3 Months or Most Recently Relevant to Health Maintenance Insurance [employer] [address] [id number] [facility] MEDICARE ADVANTAGE [facility] [place] [address] [place] [id number] Care Teams Adobe Layer Relationship Specialty Start Date End Date Helio Hunter MD PCP - General Family Medicine 10/25/18
--- OUTSIDE RECORDS SUMMARY | 2024-10-05 13:08 | XMS_ITS | Clinical Summary ---
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
--- OUTSIDE RECORDS SUMMARY | 2024-10-05 13:08 | XMS_ITS | Clinical Summary ---
Author Organization [facility] Address [address] [place] [address] Care Team Providers Care Wood Type Cutter Name Role Phone Helio Hunter MD Primary Care Provider [phone] Source Comments [facility],non-owned Affiliates and Associated Physician Practices is amultiple site organization consisting of ambulatory clinics and hospital sitesin [place], [place], [place] and [place]. This disclosure is being madepursuant to the Care Everywhere program and may not contain all information available regarding this patient. Last updated 18.[facility] Allergies Active Allergy Reactions Criticality Noted Date [...] daily Active vitamin D, ergocalciferol , (DRISDOL) 34313 UNIT capsule Take 1 (one) capsule by mouth every 7 days Active magnesium oxide (MAG-OX) 400 MG tablet Take 1 (one) tablet by mouth once daily Active atorvastatin (LIPITOR) 20 MG tablet Take 1 (one) tablet by mouth at bedtime Active Acetylcarnitin e HCl (Psiatd-A-Zefw itine HCl) POWD Gsxjkk-B-Aznzpcnvx A ctive SYRINGE-NEEDLE , DISP, 3 ML (B-D 3CC LUER-LUNA SYR 26GX5/8) 26G X 5/8 3 ML MISC BD [...] 2 Active Alpha-Lipoic Acid 300 MG Active [place]-3 Fatty Acids ([place]-3 Fish Oil) 500 MG Take 1,200 mg [...] on file Legal Sex Female 7:32 AM PLANNING RN Gender Identity Not on file Sexual Orientation Not on file 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, 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 Not on file Not on file Not on file Last Filed Vital Signs Vital Sign Reading Time Taken Comments Blood Pressure 126/76 06/01/2022 12:58 PM PLANNING RN Pulse 77 06/01/2022 12:58 PM PLANNING RN Temperature 36.9 C (98.4 F) 09/20/2018 7:51 AM CDT Respiratory Rate 11 09/20/2018 9:33 AM CDT Oxygen Saturation 99% 09/20/2018 9:31 AM CDT Inhaled Oxygen Concentration - - Weight 91.2 kg (201 lb) 06/01/2022 12:58 PM PLANNING RN Height 154.9 cm (5' 1) 06/01/2022 12:58 PM PLANNING RN Body Mass Index 37.98 06/01/2022 12:58 PM PLANNING RN Plan of Treatment Health Maintenance Due Date [...] patient's age to complete this topic Insurance [facility]GED [facility]IC[facility] [place] [address] Advance Directives Documents on File Type Date Recorded Patient Editor School Photograph Expl anation Adv Directive/Living Will/POA 12/05/2010 12:09 PM Care Teams Wood Type Cutter Relationship Specialty Start Date End Date Helio Hunter MD [address] [place] [address] PCP - General 05/08/22
--- OUTSIDE RECORDS SUMMARY | 2024-10-05 13:08 | XMS_ITS | Data Portability ---
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 Plan of Treatment Reminders Order Date Submit Date Provider Last Modified By Organization Details Last Modified Time Details Appointments None recorded. Lab unlisted lab - igp, apt HPV,rfx 16/18,45-1 84733-S 2015 016 DBA_PATCH_ [id number] [facility], [address] [place] [address], [address], 6 04:30:46 vitamin D, 25-hydroxy , total, serum 2015 016 DBA_PATCH_ [id number] [facility], [address] [place] [address], [address], 6 04:30:48 urinalysis complete, reflex culture 2015 016 DBA_PATCH_ [id number] [facility], [address] [place] [address], [address], 6 04:30:57 urinalysis , dipstick 2013 014 In-House Results, For Internal Use Only, Do Not Delete/merge, 00660 4 21:48:44 vaginal pathogens DNA probe - Bacterial Vaginosis, Gill, and Trich 2013 014 [facility] (Centralized Electronic Ordering - All Locations), Patient Can Go To The Location Of Their Choice, [address] 4 13:06:26 Pap, thin prep & HPV high risk and HPV 16/18 2012 013 [facility] ([facility] - [facility] Locations), Patient Can Go To The Location Of Their Choice, [address] 3 13:03:39 vaginal pathogens DNA probe - TEST CODE 36254 ; VAGINAL PATHOGENS 2012 013 [email or web address] Not available 3 10:51:05 chandler prep, tissue 2012 013 JOSIAS In-House Results, For Internal Use Only, Do Not Delete/merge, 178[address] 3 03:20:41 vaginal swab pH and amines 2012 013 JOSIAS In-House Results, For Internal Use Only, Do Not Delete/merge, [id number] 3 03:20:41 Pap, thin prep & HPV high risk and HPV 16/18 2012 013 [facility] (Centralized [facility] Ordering - All Locations), Patient Can Go To The Location Of Their Choice, [address] 3 14:03:07 vaginal pathogens DNA probe - Bacterial Vaginosis, Gill, and Trich 2012 013 [email or web address] Not available 3 10:50:42 [place],vagi nal 2012 013 JOSIAS In-House Results, For Internal Use Only, Do Not Delete/merge, 05405 3 03:20:41 urinalysis , dipstick 2012 013 JOSIAS In-House Results, For Internal Use Only, Do Not Delete/merge, 00664 3 03:20:41 Referral colonoscop y referral 2015 016 DBA_PATCH_ [id number] Not available 6 04:30:56 Procedures None recorded. Surgeries None recorded. Imaging MAMMO, screening, bilateral 2015 016 DBA_PATCH_ [id number] [facility] ([facility]), [address] [place], [address], 6 04:30:57 DEXA, axial skeleton 2015 016 DBA_PATCH_ [id number] [facility] ([facility]), [address] [place], [address], 6 04:30:56 Medication Orders Estrace 0.01% (0.1 mg/gram) vaginal cream 2013 014 INTERFACE [facility], [address] [place] [address], [address], 4 17:56:59 Vagifem 10 mcg vaginal tablet 2013 014 [facility], [address] [place] [address], [address], 4 13:18:38 Estrace 0.01% (0.1 mg/gram) vaginal cream 2012 013 JOSIAS Not available 3 03:20:41 Estrace 0.01% (0.1 mg/gram) vaginal cream 2012 013 JOSIAS [facility], [address] [place] [address], [address], 3 03:20:41 tinidazole 500 mg tablet 2012 013 [id number], [address], [place], [id number], 3 03:20:41 Patient TargetsNo targets recorded. Patient Instructions Encounter Date Encounter Id Patient Instructions Last Modified By Organization Details Last Modified Time 10/24/2012 [id number] Long discussion regarding ASCUS. Pt has remote history of JAJA 3 (1975). Discussed that current HR HPV status is negative. Plan to repeat pap in 6 months [email or web address] Not available 10/24/2012 16:10:25 08/14/2013 [id number] Vulvar irritatio n probably due to sand. Will resume Vagifem and increase Estrace to 3x/wk for 2 wks then retrun to twice weekly. Not available 08/14/2013 17:56:55 02/12/2016 [id number] eating healthy foods: care instructions DBA_PATCH_201 [id number] Not available 04/11/2016 04:30:57 abnormal weight gain: care instructions DBA_PATCH_201 [id number] Not available 04/11/2016 04:30:57 A healthy heart: care instructions DBA_PATCH_201 [id number] Not available 04/11/2016 04:30:57 kegel exercises: care instructions DBA_PATCH_201 [id number] Not available 04/11/2016 04:30:57 advance directives: care instructions DBA_PATCH_201 [id number] Not available 04/11/2016 04:30:57 Reason for Referral Colonoscopy Referral for Scr eening for malignant neoplasm of colon Referring Physician: Carline Jefferson, HOOK TENDER, Encounter Date: 02/12/2016 Results Created Date Observation [...] clien t servi viri. phone numbe r: 134.6 97.83 [address] [facility] [address] [place], [address], 10/30/2012 10:03:10 08/15/19 14 08/14/2013 urina lysis , dipst ick Leukocytes Negati ve Not Available In-House Results For Internal Use Only, Do Not Delete/merge, [id number] 08/14/2013 17:15:42 08/15/19 14 08/14/2013 urina lysis , dipst ick Nitrite negati ve Not Available In-House Results For Internal Use Only, Do Not Delete/merge, 12085 08/14/2013 17:15:42 08/15/19 14 08/14/2013 urina lysis [...] 08/14/2013 urina lysis , dipst ick Specific [place] 1.015 Not Available In-Марина se Results For [...] 15:39:10/25/1910/24/2012 urina lysis , dipst ick Specific [place] 1.010 Not Available In-[place]ар[place] se Results For [...] 10/13/2012 urina lysis , dipst ick Specific [place] 1.015 Not Available In-Мар[place] se Results For [...] ed signi fican ce. Not Available [facility] ([facility]) [address] [facility], [place], [address], 10/14/2012 12:38:46 10/12/19 13 10/14/2012 Pap image guide d, HPV high risk and HPV genot ype 16/18 specimen adequacy: [facility] satis facto ry for evalu ation . endoc ervic al and/o r squam ous metap lasti c cells (endo cervi mira compo nent) are prese nt. Not Available [facility] ([facility]) [address] [place], [address], 10/14/2012 12:38:46 10/12/19 13 10/14/2012 Pap image guide d, HPV high risk and HPV genot ype 16/18 clinician provided ICD9: [facility] V76.2 ; justin choe for andreia sinclair neopl asm of the cervi x Not Available [facility] ([facility]) [address] [place], [address], 10/14/2012 12:38:46 10/12/19 13 10/14/2012 Pap image guide d, HPV high risk and HPV genot ype 16/18 performed by: [facility] nena wood, cytot echno logis t Not Available [facility] ([facility]) [address] [place], [address], 10/14/2012 12:38:46 10/12/19 13 10/14/2012 Pap image guide d, HPV high risk and HPV genot ype 16/18 electronical ly signed by: [facility] tanika Barrientoshelen [facility], patho logis t Not Available [facility] ([facility]) [address] [place], [address], 10/14/2012 12:38:46 10/12/19 13 10/14/2012 Pap image guide d, HPV high risk and HPV genot ype 16/18 . . Not Available [facility] ([facility] [address] [place], [address], 10/14/2012 12:38:46 10/12/19 13 10/14/2012 Pap image guide d, HPV high risk and HPV genot ype 16/18 pathologist provided [facility] 1 Not Available [facility] ([facility]) [address] [place], [address], 10/14/2012 12:38:46 10/12/19 13 10/14/2012 Pap image [...] do occur . . Not Available [facility] ([facility]) [address] [facility], [place], [address], 10/14/2012 12:38:46 10/12/19 13 10/14/2012 Pap image guide d, HPV high risk and HPV genot ype 16/18 test methodology: IGLPAP this liqui d based thinp rep(R ) Pap test was scree venu with the use of an image guide d syste m. Not Available [facility] ([facility]) [address] [place], [address], 10/14/2012 12:38:46 10/12/19 13 10/14/2012 Pap image guide d, HPV high risk and HPV genot ype 16/18 HPV other HR types NEGATI VE negati ve Not Available [facility] ([facility]) [address] [place], [address], 10/14/2012 12:38:46 10/12/19 13 10/14/2012 Pap image guide d, HPV high risk and HPV genot ype 16/18 HPV 16 NEGATI VE negati ve Not Available [facility] ([facility]) [address] [place], [address], 10/14/2012 12:38:46 10/12/19 13 10/14/2012 Pap image [...] diffe renti ation . Not Available [facility] ([facility]) [address] [facility], [place], [address], 10/14/2012 12:38:46 03/20/20 13 03/22/2013 Pap ig, HPV and rfx HPV 16/18 diagnosis: [facility] negat moo for intra epith elial lesio n and andreia gricelda . Not Available [facility] ([facility]) [address] [facility], [place], [address], 03/22/2013 20:36:21 03/20/20 13 03/22/2013 Pap ig, HPV and rfx HPV 16/18 specimen adequacy: [facility] satis facto ry for evalu ation . endoc ervic al and/o r squam ous metap lasti c cells (endo cervi mira compo nent) are prese nt. Not Available [facility] ([facility]) [address] [facility], [place], [address], 03/22/2013 20:36:21 03/20/20 13 03/22/2013 Pap ig, HPV and rfx HPV 16/18 clinician provided ICD9: [facility] 795.0 1 ; papan icola ou smear of cervi x with atypi mira squam ous cells of undet ermin ed signi fican ce (asc- [place]) Not Available [facility] ([facility]) [address] [place], [address], 03/22/2013 20:36:21 03/20/20 13 03/22/2013 Pap ig, HPV and rfx HPV 16/18 performed by: [facility] alexandre vanme ter, cytot echno logis t (ascp ) Not Available [facility] ([facility]) [address] [place], [address], 03/22/2013 20:36:21 03/20/20 13 03/22/2013 Pap ig, HPV and rfx HPV 16/18 . . Not Available [facility] ([facility]) [address] [facility], [place], [address], 03/22/2013 20:36:21 03/20/20 13 03/22/2013 Pap ig, [...] do occur . . Not Available [facility] ([facility]) [address] [facility], [place], [address], 03/22/2013 20:36:21 03/20/20 13 03/22/2013 Pap ig, HPV and rfx HPV 16/18 test methodology: IGLPAP this liqui d based thinp rep(R ) Pap test was scree venu with the use of an image guide tan systboy m. Not Available [facility] ([facility]) [address] [place], [address], 03/22/2013 20:36:21 03/20/20 13 03/22/2013 Pap ig, HPV and rfx HPV 16/18 HPV, high-risk NEGATI VE negati ve this high- risk HPV test detec ts thirt een high- risk types (16/1 8/31/ 33/35 /39/4 5/51/ 52/56 /58/5 ) witho ut diffe renti ation . . Not Available [facility] ([facility]) [address] [facility], [place], [address], 03/22/2013 20:36:21 08/15/19 14 08/17/2013 nua b vag atopobium vaginae LOW - 0 score Not Available [facility] ([facility]) [address] [facility], [place], [address], 08/18/2013 14:36:45 08/15/19 14 08/17/2013 nuswa b vag bvab 2 LOW - 0 score Not Available [facility] ([facility]) [address] [facility], [place], [address], 08/18/2013 14:36:45 08/15/19 14 08/17/2013 nua b [...] IS not neces ruel. Not Available [facility] ([facility]) [address] [facility], [place], [address], 08/18/2013 14:36:45 08/15/19 14 08/17/2013 nua b vag gill albicans, ROMINA POSITI VE negati ve abnormal Not Available [facility] ([facility]) [address] [facility], [place], [address], 08/18/2013 14:36:45 08/15/19 14 08/17/2013 nuswa b [...] IS not neces ruel. Not Available [facility] ([facility]) [address] [facility], [place], [address], 08/18/2013 14:36:45 08/15/19 14 08/18/2013 nuswa b vag trich vag by ROMINA NEGATI VE negati ve Not Available [facility] ([facility]) [address] [facility], [place], [address], 08/18/2013 14:36:45 02/12/20 16 02/13/2016 vitam in [...] ENDOC RINE SOCIE TY WENT ON TO [facility] ER DEFIN E VITAM IN D INSUF FICIE NCY A LEVEL BETWE EN 21 AND 29 NG/ML (2). 1. IOM (INST ITUTE OF MEDIC INE). 2009. DIETA RY REFER ENCE INTAK ES FOR CALCI UM AND D. SHEYLA TOVAR DC: THE NATIO NAL [facility]ADE [facility] PRESS . 2. SHRUTHI Grigsby MF, TWYLA BEAR NC, BECYK OFF-F ERRTE I GARCIA, ET AL. EVALU ATION , TREAT MENT, AND PREVE NTION OF VITAM IN D DEFIC IENCY : AN ENDOC RINE SOCIE TY CLINI MIRA PRACT ICE GUIDE LINE. JCEM. 2010; 96(7) :1911 -30. Not Available [facility] ([facility]) [address] [facility] [place], [address], 02/13/2016 08:43:12 02/12/20 16 02/13/2016 urina lysis compl ete, refle x cultu re specific gravity 1.007 1.005- 1.030 Not Available [facility] ([facility]) [address] [facility], [place], [address], 02/14/2016 07:38:28 02/12/20 16 02/13/2016 urina lysis compl ete, refle x cultu re pH 7.5 5.0-7. 5 Not Available [facility] ([facility]) [address] [place], [address], 02/14/2016 07:38:28 02/12/20 16 02/13/2016 urina lysis compl ete, refle x cultu re urine-color YELLOW yellow Not Available [facility] ([facility]) [address] [facility], [place], [address], 02/14/2016 07:38:28 02/12/20 16 02/13/2016 urina lysis compl ete, refle x cultu re appearance CLEAR clear Not Available [facility] ([facility]) [address] [place], [address], 02/14/2016 07:38:28 02/12/20 16 02/13/2016 urina lysis compl ete, refle x cultu re WBC esterase 3+ negati ve abnormal Not Available [facility] ([facility]) [address] [place], [address], 02/14/2016 07:38:28 02/12/20 16 02/13/2016 urina lysis compl ete, refle x cultu re protein NEGATI VE negati ve/tra ce Not Available [facility] ([facility]) [address] [place], [address], 02/14/2016 07:38:28 02/12/20 16 02/13/2016 urina lysis compl ete, refle x cultu re glucose NEGATI VE negati ve Not Available [facility] ([facility]) [address] [place], [address], 02/14/2016 07:38:28 02/12/20 16 02/13/2016 urina lysis compl ete, refle x cultu re ketones NEGATI VE negati ve Not Available [facility] ([facility]) [address] [place] [address], [address], 02/14/2016 07:38:28 02/12/2002/13/2016 urina lysis compl ete, refle x cultu re occult blood NEGATI VE negati ve Not Available [facility] ([facility]) [address] [place] [address], [address], 02/14/2016 07:38:28 02/12/20 16 02/13/2016 urina lysis compl ete, refle x cultu re bilirubin NEGATI VE negati ve Not Available [facility] ([facility]) [address] [place] [address], [address], 02/14/2016 07:38:28 02/12/20 16 02/13/2016 urina lysis compl ete, refle x cultu re urobilinogen ,semi-qn 0.2 mg/dL 0.2-1. 0 Not Available [facility] ([facility]) [address] [place] [address], [address], 02/14/2016 07:38:28 02/12/20 16 02/13/2016 urina lysis compl ete, refle x cultu re nitrite, urine NEGATI VE negati ve Not Available [facility] ([facility]) [address] [place] [address], [address], 02/14/2016 07:38:28 02/12/20 16 02/13/2016 urina lysis compl ete, refle x cultu re microscopic examination SEE BELOW: MICRO SCOPI C WAS INDIC ATED AND WAS PERFO RMED. Not Available [facility] ([facility]) [address] [facility], [place], [address], 02/14/2016 07:38:28 02/12/20 16 02/13/2016 urina lysis compl ete, refle x cultu re WBC 11-30 /hpf 0 - 5 abnormal Not Available [facility] ([facility]) [address] [place], [address], 02/14/2016 07:38:28 02/12/20 16 02/13/2016 urina lysis compl ete, refle x cultu re RBC 0-2 /hpf 0 - 2 Not Available [facility] ([facility]) [address] [facility], [place], [address], 02/14/2016 07:38:28 02/12/20 16 02/13/2016 urina lysis compl ete, refle x cultu re epithelial cells (non renal) 0-10 /hpf 0 - 10 Not Available [facility] ([facility]) [address] [facility], [place], [address], 02/14/2016 07:38:28 02/12/20 16 02/13/2016 urina lysis compl ete, refle x cultu re epithelial cells (renal) HOG COOLER Not Available [facility] ([facility]) [address] [facility], [place], [address], 02/14/2016 07:38:28 02/12/20 16 02/13/2016 urina lysis compl ete, refle x cultu re casts HOG COOLER Not Available [facility] ([facility]) [address] [place], [address], 02/14/2016 07:38:28 02/12/20 16 02/13/2016 urina lysis compl ete, refle x cultu re cast type HOG COOLER Not Available [facility] ([facility]) [address] [place], [address], 02/14/2016 07:38:28 02/12/20 16 02/13/2016 urina lysis compl ete, refle x cultu re crystals HOG COOLER Not Available [facility] ([facility]) [address] [place], [address], 02/14/2016 07:38:28 02/12/20 16 02/13/2016 urina lysis compl ete, refle x cultu re crystal type HOG COOLER Not Available [facility] ([facility]) [address] [facility], [place], [address], 02/14/2016 07:38:28 02/12/20 16 02/13/2016 urina lysis compl ete, refle x cultu re mucus threads HOG COOLER Not Available [facility] ([facility]) [address] [place], [address], 02/14/2016 07:38:28 02/12/20 16 02/13/2016 urina lysis compl ete, refle x cultu re bacteria FEW none seen/f ew Not Available [facility] ([facility]) [address] [place], [address], 02/14/2016 07:38:28 02/12/20 16 02/13/2016 urina lysis compl ete, refle x cultu re yeast HOG COOLER Not Available [facility] ([facility]) [address] [place], [address], 02/14/2016 07:38:28 02/12/20 16 02/13/2016 urina lysis compl ete, refle x cultu re trichomonas HOG COOLER Not Available [facility] ([facility]) [address] [place], [address], 02/14/2016 07:38:28 02/12/20 16 02/13/2016 urina lysis compl ete, refle x cultu re comment HOG COOLER Not Available [facility] ([facility]) [address] [place], [address], 02/14/2016 07:38:28 02/12/20 16 02/13/2016 urina lysis compl ete, refle x cultu re microscopic examination HOG COOLER Not Available [facility]) [address] [facility], [place], [address], 02/14/2016 07:38:28 02/12/20 16 02/13/2016 urina lysis compl ete, refle x cultu re urinalysis reflex COMMEN T THIS SPECI MEN HAS REFLE XED TO A URINE CULTU RE. Not Available [facility] ([facility]) [address] [facility], [place], [address], 02/14/2016 07:38:28 02/12/20 16 02/14/2016 urina lysis compl ete, refle x cultu re urine culture, routine FINAL REPORT Not Available [facility] ([facility]) [address] [facility], [place], [address], 02/14/2016 07:38:28 02/12/20 16 02/14/2016 urina lysis compl ete, refle x cultu re result 1 NO GROWTH Not Available [facility] ([facility]) [address] [facility], [place], [address], 02/14/2016 07:38:28 02/12/20 16 02/17/2016 pap, IG + HPV diagnosis: COMMEN T NEGAT MOO FOR INTRA EPITH ELIAL DAMIEN N AND ANDREIA NGUYEN . Not Available [facility] ([facility]) [address] [facility], [place], [address], 02/17/2016 12:35:57 02/12/20 16 02/17/2016 pap, IG + HPV specimen adequacy: COMMEN T SATIS FACTO RY FOR EVALU ATION . ENDOC ERVIC AL AND/O R SQUAM OUS METAP LASTI C CELLS (ENDO CERVI MIRA COMPO NENT) ARE PRESE NT. Not Available [facility] ([facility]) [address] [place], [address], 02/17/2016 12:35:57 02/12/20 16 02/17/2016 pap, IG + HPV clinician provided ICD10: ANIKA Moraes Z12.4 R35.0 E55.9 Not Available [facility] ([facility]) [address] [place], [address], 02/17/2016 12:35:57 02/12/20 16 02/17/2016 pap, IG + HPV performed by: ANIKA VARGAS , CYTOAleisha Moraes (ASCP ) Not Available [facility] ([facility]) [address] [place], [address], 02/17/2016 12:35:57 02/12/20 16 02/17/2016 pap, IG + HPV . . Not Available [facility] ([facility]) [address] [place], [address], 02/17/2016 12:35:57 02/12/20 16 02/17/2016 pap, IG [...] TS DO OCCUR . Not Available [facility] ([facility]) [address] [facility], [place], [address], 02/17/2016 12:35:57 02/12/2002/17/2016 pap, IG + HPV test methodology: ANIKA Moraes THIS LIQUI D BASED THINP REP(R ) PAP TEST WAS SCREE VENU WITH THE USE OF AN IMAGE GUIDE Tan Monsivais. Not Available [facility] ([facility]) [address] [place], [address], 02/17/2016 12:35:57 02/12/20 16 02/17/2016 pap, IG + HPV HPV aptima NEGATI VE negati ve THIS TEST DETEC TS FOURT EEN HIGH- RISK HPV TYPES (16/1 8/31/ 33/35 /39/4 5/ 51/52 /56/5 8/59/ 66/68 ) WITHO UT DIFFE RENTI ATION . Not Available [facility] ([facility]) [address] [facility], [place], [address], 02/17/2016 12:35:57 11/15/19 13 11/14/2012 mammo gram, scree daija No observ ation [facility] ed. [facility] [address], [place], [address], 11/17/2012 17:39:45 12/08/19 17 12/04/2016 MAMMO , scree daija, bilat eral No observ ation record ed. [facility] [address] [facility] [address], [place], [address], 12/13/2016 22:23:51 Result Notes None recorded. Problems Name Problem SNOMED Code Status Onset Date Resolution Date Notes Provider Name and Address Organization Details Recorded Time Acute vaginitis 15430582 Active Adriana Chavez rse null [place] - [employer] 4 18:34:43 Allergy to food 085322701 Active 2015 Adriana Chavez rse null, [place] - [employer] 6 15:52:07 Varicose veins of lower extremity 25834460 Active Not Available [facility] 3 03:03:10 Atrophic vaginitis 79601830 Active Not Available [facility] 3 03:03:10 History of dysplasia of cervix 182078429 Active 1975 JAJA 3 treated with cryo ASCUS September 2012 Ernestina Eden null, [employer] - [employer] 3 22:58:51 Human papilloma virus infection 196243381 Active Jaja 3 - 1976 Not Available [facility] 3 03:03:10 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 76588547 Active Not Available [facility] 3 03:03:10 Atypical squamous cells of undetermine d significanc e on cervical Papanicolao u smear 378710533 Active Ernestina britt [facility] [employer] [facility] 3 12:16:58 Increased frequency of urination 351726025 Active Carline Jefferson MD [address] [facility],[address], [place], [address] , [facility] [employer] 4 21:48:44 Female genital organ symptoms 329733410 Active Carline Jefferson MD [address] [facility], [place], [address] , [facility] [employer] 4 21:48:44 Generalized osteoarthri tis 226882013 Active Not Available [facility] 3 03:03:10 Peripheral venous insufficien cy 00083803 Active Not Available [facility] 3 03:03:10 Allergic rhinitis 51244767 Active Not Available [facility] 3 03:03:10 History of polyp of colon 410025321 Active Not Available [facility] 3 03:03:10 IgE-mediate d allergic asthma [id number] Active Not Available [facility] 3 03:03:10 Vaginitis and vulvovagini tis Active Carline Jefferson MD [address] [facility],[address], [place], [address] , [facility] [employer] 4 21:48:44 Problem Notes None recorded. Procedures Surgical History Date Name Laterality Status Provider Name and Address Organization Details Recorded Time 10/25/19 14 Date of Last Colonoscopy completed Adriana Hoang se [employer] 02/12/2016 15:50:47 10/25/19 14 Colonoscopy with biopsy completed Adriana Hoang se [facility] 02/12/2016 15:50:36 04/26/18 79 Caesarean Section completed Rainrosario Lott [facility] 09/18/2011 11:48:35 04/26/18 77 Other Surgery - List type completed Samina Price [facility] 09/30/2011 11:34:12 04/26/18 75 Caesarean Section completed [facility] 09/18/2011 11:48:35 Breast: Biopsy completed [facility] 09/18/2011 11:48:35 Other Surgery - List type completed [facility] 09/18/2011 11:48:35 Orthopedic Surgery - List type completed [facility] 09/18/2011 11:48:35 Orthopedic Surgery - List type completed [facility] 09/18/2011 11:48:35 Cholecystectomy (Gallbladder) completed [facility] 09/18/2011 11:48:35 Orthopedic Surgery - List type completed [facility] 09/18/2011 11:48:35 Orthopedic Surgery - List type completed [facility] 09/18/2011 11:48:35 Dilation and Curettage (OB or Upholsterer Inside) completed [facility] 09/18/2011 11:48:35 Imaging Results None recorded. Procedure Notes None recorded. Medical Equipment None Reported. Allergies Allergen ID Allergen Name Allergen Category Reaction Reaction Severity Criticality Documentation Date Start Date Code Code System Note Provider Name and Address Organization Details Recorded Time 2761 Demerol medicatio n dizziness nausea Not available Not available Not available 09/18/2011 99404 1 RxNorm Adriana zendejas [facility] 3 15:16:32 2762 codeine medicatio n other Not available Not available 09/18/2011 2670 RxNorm Thelma Stovall [facility] 4 17:10:53 2763 pseudoeph edrine Not available dizziness nausea Not available Not available Not available 09/18/2011 8896 RxNorm Adriana zendejas [facility] 3 15:16:32 2764 morphine medicatio n dizziness nausea Not available Not available Not available 09/18/2011 7052 RxNorm Rain Lott [facility] 2 11:48:35 Medications Name Sig Start Date Stop Date [...] Not Available Not Available Not Available Transderm-S electron microscopist 1 mg over 3 days transdermal patch [...] Available Not Available Not Available Fluzone High-Dose [id number] (PF) 180 mcg/0.5 mL intramuscul ar syringe [...] Details Last Updated DateTime 08/14/2013 149.86 cm 46512.18 9652 g 36.3 kg/m2 130 mm[Hg] 80 mm[Hg] Thelma Stovall [employer] 4 12:51:37 Date Recorded Body height Body weight Body mass index (BMI) Systolic blood pressure Diastolic blood pressure Provider Name and Address Organization Details Last Updated DateTime 10/24/2012 149.86 cm 49342.42 1374 g 34.4 kg/m2 142 mm[Hg] 78 mm[Hg] Adriana He [employer] 3 15:49:53 Date Recorded Body height Body weight Body mass index (BMI) Systolic blood pressure Diastolic blood pressure Provider Name and Address Organization Details Last Updated DateTime 11/16/2012 149.86 cm 28829.51 816 g 33.9 kg/m2 116 mm[Hg] 72 mm[Hg] Adriana He [employer] 3 14:33:07 Date Recorded Body height Body weight Body mass index (BMI) Systolic blood pressure Diastolic blood pressure Provider Name and Address Organization Details Last Updated DateTime 02/12/2016 149.86 cm 40256.59 g 37.4 kg/m2 118 mm[Hg] 60 mm[Hg] Adriana He [employer] 6 15:37:22 Date Recorded Body height Body weight Body mass index (BMI) Systolic blood pressure Diastolic blood pressure Provider Name and Address Organization Details Last Updated DateTime 03/18/2013 149.86 cm 41348.18 9652 g 36.3 kg/m2 130 mm[Hg] 76 mm[Hg] Adriana Neri aashish [employer] 3 11:22:23 Social History Question Answer Notes LastModified by Organizat ion Details LastModified Time Tobacco Smoking Status Never Smoker Not Available [employer] 02/09/2020 03:15:59 Do You Have An Advance Directive? Yes [id number] Information not available 02/09/2020 Is Blood Transfusion Acceptable In An Emergency? Yes [id number] Information not available 02/09/2020 Who Is Your Employer? Retired [id number] Information not available 02/09/2020 Are There Any Guns Present In Your Home? No [id number] Information not available 02/09/2020 Live Alone Or With Others? With Others [email or web address] Information not available 09/30/2011 How Much Sleep? Too Busy To Sleep [email or web address] Information not available 09/30/2011 Alcohol Intake Frequency Occasional [email or web address] Information not available 09/30/2011 Caffeine Intake Frequency Daily [email or web address] Information not available 09/30/2011 Caffeine How Many Cups Per Day? / What Type? 6-8 C Hot Tea [email or web address] Information not available 09/30/2011 Regular Exercise? Most Weeks But Inconsistent [email or web address] Information not available 09/30/2011 Illicit Drug Use Frequency (prescription Or Street) Never [email or web address] Information not available 09/30/2011 Current Student? No Information not available 09/30/2011 Diet? Mostly Healthy [email or web address] Informatio n not available 09/30/2011 Calcuim 1,000 - 1,500mg Daily (diet / Suplements)? Yes Takes Calcium [email or web address] Information not available 09/30/2011 Diet High In Fiber? Yes Information not available 09/30/2011 Avoid Second Hand Smoke Exposure? Yes [email or web address] Information not available 09/30/2011 Martial Status: [email or web address] Informati on not available 09/30/2011 Monthly Self Breast Exams? Yes [email or web address] Information not available 09/30/2011 Regular Tooth Brushing, Flossing, And Dental Visits? Yes [email or web address] Information not available 09/30/2011 Education Level: Post Graduate [email or web address] Information not available 09/30/2011 Previous Attempts To Decrease Alcohol Consumption? No Information not available 09/30/2011 Do You Use Your Seat Belt Or Car Seat Routinely? Yes [id number] Information not available 02/09/2020 Are You Sexually Active? Yes [id number] Information not available 02/09/2020 Do You Have Smoke And Carbon Monoxide Detectors In Your Home? Yes [id number] Information not available 02/09/2020 At What Age Did You Start Smoking Tobacco? 16 [id number] Information not available 02/09/2020 How Much Tobacco Do You Smoke? No [id number] Information not available 02/09/2020 Do You Use Sunscreen Routinely? Yes [id number] Information not available 02/09/2020 How Many Years Have You Smoked Tobacco? 4 [id number] Information not available 02/09/2020 Sex: Unknown Functional Status Question Answer Note LastModified by Organization D etails LastModified Time Are you currently employed? 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 Family History Relationship [...] previo usly record ed as Heart Attack ([place]) Ischem ic heart diseas e Not available [...] N Allergies - seasonal / environmental Y Genital Warts - Personal History N Dysplasia, Vaginal - Personal History N Elevated cholesterol, triglycerides [...] Osteopenia Y Heart Disease, cornary artery (including [place]) N Anemia, unspecified Y Crohn's Disease (Regional [...] split virus, trivalent, preservative 3 completed Thelma Wilman [facility] [employer] [facility] [employer] [facility] 08/14/2013 17:15:41 Influenza, split virus, trivalent, preservative 6 completed Adriana SheaJalyn [facility] [employer] [facility] 02/12/2016 15:38:42 Td (adult) 2 completed Samina Albert [facility] [employer] [facility] 09/30/2011 11:42:00 Past Encounters Encounter ID Performer Location Encounter Start Date Encounter Closed Date Diagnosis/Indication Diagnosis SNOMED-CT Code Diagnosis ICD10 Code Diagnosis Note [id number] Ernestina Kearns MD [facility] [address] [place] [address] [id number] 09/30/2011 10:58:45 09/30/2011 13:13:37 [id number] Ernestina Kearns MD [facility] [address] [place] [address] [phone] 10/10/2012 13:59:29 10/10/2012 16:42:52 [id number] Ernestina Kearns MD [facility] [address] [place] [address] [id number] 10/24/2012 14:03:21 10/24/2012 15:21:21 [id number] Ernestina Kearns MD [facility] [address] [place] [address] [id number] 9 03/18/2013 10:01:45 03/18/2013 12:18:33 Atypical squamous cells of undetermined significance on cervical Papanicolaou smear 472171933 HR HPV negative [id number] Ernestina Kearns MD [facility] [address] [place] [address] [phone] 9 11/16/2012 14:04:20 11/16/2012 14:49:51 [id number] Carline Jefferson MD [facility] [address] [place] [address] [id number] 08/14/2013 15:49:51 08/14/2013 18:08:45 Vaginitis and vulvovaginitis 970272957 Female gen ital organ symptoms 451820260 Increased frequency of urination 995596867 Mycotic in fection screening [id number] Calrine Jefferson MD [facility] [address] [facility] ,[address] [place] [address] 02/12/2016 15:21:28 02/12/2016 17:11:33 Specialized medical examination 70811461 Z01.89 Gynecologi c examination 01676883 Z01.419 fasting labs completed with PCP 2015 Screening for malignant neoplasm of cervix 289823808 Z12.4 Screening procedure 2012 5006 Z13.9 Increased frequency of urination 134593206 R35.0 Screening for malignant neoplasm of colon 452092143 Z12.11 Screening for malignant neoplasm of breast 319642833 Z12.39 Screening for osteoporosis 037368230 Z13.820 Vitamin D deficiency 347 31324 E55.9 Health Concerns Section Related Observation LastModified by Organization Detai ls LastModified Time None Recorded Concern Status LastModified by Organization Details LastModified Time None Recorded Advance Directives Directive Y: Payers Insurance Date Sequence Insurance Name Policy Number Policy Tate Covered Member ID Tate Member ID Guarantor Name 01/31/2016 2 [employer] PLAN - 3 TIER PLAN [id number] Gricelda Salazar [id number] Gricelda Salazar 01/31/2016 1 [place] Gricelda Salazar [id number] Gricelda Salazar 02/10/2016 1 [facility] (MEDICARE REPLACEMENT/A DVANTAGE - PPO) [id number] Gricelda Salazar [id number] Gricelda Salazar OBGyn Episode Ob Episode Information Episode Created Date Number of Fetuses Patient Bloodtype Patient rh Status Prepregnancy Weight lbs Domestic Partner Domestic Partner Phone Father Name Sheet Heater Status 09/18/19 12 1 CLOSED Fetus Data [...] Domestic Partner Domestic Partner Phone Father Name Sheet Heater Status 09/18/19 12 1 CLOSED Fetus Data [...] Domestic Partner Domestic Partner Phone Father Name Sheet Heater Status 09/18/19 12 1 CLOSED Fetus Data [...]
--- OUTSIDE RECORDS SUMMARY | 2024-10-05 13:08 | XMS_ITS | Data Portability ---
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 Patient will come back in a year unless there are new symptoms. Not available 08/24/2022 10:05:35 08/27/2023 08/27/2023 Annual gynecological exam performed. Patient will come back in a year unless there are new symptoms. [email or web address] Not available 08/27/2023 09:27:29 Plan of Treatment Reminders Order Date Submit Date Provider Last Modified By Organization Details Last Modified Time Details Appointments None record ed. Lab None record ed. Referral None record [...] CASE REPOR T: Cytol ogy Gynec ologi miar Repor t Case: [id number] Autho aldo g Provi milan: Mo Carcamo MD Colle [...] mell (if appli cable ): Not Available [facility] (Lab) [address], [place], [address], 08/26/2022 17:03:53 08/27/19 24 08/27/2023 IMAGE GUIDE D PAP AND HPV REGAR DLESS image guided Pap, HPV regardless of Pap result SEE RESULT S BELOW CASE REPOR T: Cytol ogy Gynec ologi mira Repor t Case: [id number] Autho lamontronnie yanick Provi milan: Mo Carcamo MD Colle cted: 08/26 1212 Order ing Locat ion: [place] Patho logyumiko Chasealfreda vida: 08/29 0938 First Scree n: Sania [...] OSIS: Negat conor for Intra epith elial Lesio n or Sharmila madison (NIL) . Atrop hic [...] as clini yesenia cosme nted. Not Available [facility] (Lab) [address], [place], [address], 09/01/2023 14:13:26 12/30/19 23 12/26/2022 MAMMO , scree daija, bilat eral No observ ation record ed. [facility] [address], [place], [address], 12/31/2022 10:07:53 12/31/19 24 12/31/2023 imagi ng/di agnos tic resul t No observ ation record ed. [facility] [address] [place], [address], 01/06/2024 11:49:35 Result Notes None recorded. 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 for digital performance analyst exam (general) (routine) w/o abn findings; Recorded Elsewhere : No Locati on: [facility] So urce: EHR Chron ic: N Practic e ID: 0001 Bill able Time: 08:45:00 AM Not Available [facility] 0 18:32:18 Evaluatio n finding 199298812 Active 2018 Oth abn and inconclus conor findings on dx imaging of breast;Re corded Elsewhere : No Locati on: [facility] So urce: EHR Chron ic: N Practic e ID: 0001 Bill able Time: 09:32:39 AM Not Available [facility] 0 18:32:18 Disorder of breast 48235882 Active 2018 Disorder of breast, unspecifi ed;Record ed Elsewhere : No Locati on: [facility] So urce: EHR Chron ic: N Practic e ID: 0001 Bill able Time: 09:32:39 AM Not Available [facility] 0 18:32:18 Screening for malignant neoplasm of rectum Active 2017 Encounter for screening for malignant neoplasm of rectum;Re corded Elsewhere : No Locati on: [facility] So urce: EHR Chron ic: N Practic e ID: 0001 Bill able Time: 08:30:00 AM Not Available [facility] 0 18:32:18 Evaluatio n finding Active 2019 Hematuria , unspecifi ed;Record ed Elsewhere : No Locati on: [facility] So urce: EHR Chron ic: N Practic e ID: 0001 Bill able Time: 04:30:00 PM Not Available [facility] 0 18:32:19 Lump of axillary tail of right breast 06830929801 4106 Active 2018 Unspecifi ed lump in axillary tail of the right breast;Pr actice ID: 0001 Not Available [facility] 0 18:32:19 Problem Notes None recorded. Procedures Surgical History Date Name Laterality Status Provider Name and Address Organization Details Recorded Time 2 Date of Last Mammogram completed [facility] 08/24/2022 10:40:49 2 Date of Last Pap Smear completed [facility] 08/24/2022 10:39:47 procedure on neck completed [facility] 08/24/2022 10:32:36 procedure on knee completed [facility] 08/24/2022 10:32:44 procedure on foot completed [facility] 08/24/2022 10:32:52 procedure on hand completed [facility] 08/24/2022 10:33:01 Dilation and Curettage completed [facility] 08/24/2022 10:33:09 Imaging Results None recorded. Procedure Notes None recorded. Medical Equipment None Reported. Allergies Allergen ID Allergen Name Allergen Category Reaction Reaction Severity Criticality Documentation Date Start Date Code Code System Note Provider Name and Address Organization Details Recorded Time 38639 morphine medicatio n Not available Not available Not available 04/12/2020 7052 RxNorm Renetta [facility] 3 10:07:25 63803 codeine medicatio n Not available Not available Not available 04/12/2020 2670 RxNorm [facility] 3 10:07:29 42507 pseudoeph edrine Not available Not available Not available Not available 04/12/2020 8896 RxNorm Renetta [facility] 3 10:07:35 77906 meperidin e medicatio n Not available Not available Not available 08/24/2022 6754 RxNorm Renetta Jessica [facility] [place] [facility] 3 10:07:15 Medications Name Sig Start [...] Prescrib ed Elsewher e: Yes Loca tion: [facility] M odify By: lawrence glass DateTime : 03/17/20 17 10:30:00 AM Not Available Not Available Not Available cyanocoba ap (vit B-12) 1,000 mcg/mL injection solution INJECT 1ML MONTHLY DIRECTED active Not Available Not Available [...] Available Not Available No t Available estradiol 0.01% (0.1 mg/gram) vaginal cream PLEASE SEE ATTACHED FOR DETAILED DIRECTIO NS active Not Available Not Available No t Available Dyrenium 100 mg capsule take 1 capsule by oral route every day after a meal 08/24 completed Prescrib ed Elsewher e: Yes Loca tion: Esmer brunson [facility] odify By: lawrence marcelinounter DateTime : 03/17/20 17 10:30:00 AM Not [...] Prescrib ed Elsewher e: No Locat ion: Esmer brunson [facility] odify By: wmhjami young DateTime : 05/18/19 09:39:28 AM Not Available Not Available Not Available bupropion HCl XL 300 mg 24 hr tablet, extended release TAKE 1 TABLET BY MOUTH EVERY DAY active Not Available Not Available No t Available nitrofura ntoin monohydra te/macroc rystals 100 mg capsule TAKE 1 CAPSULE BY MOUTH TWICE A DAY FOR 7 DAYS active Not Available Not Available No [...] Prescrib ed Elsewher e: Yes Loca tion: [facility]mer [facility] M odami By: ahmet Matilde lorenajohn DateTime : 10/18/19 19 09:32:39 AM Not Available Not Available Not Available resveratr ol active Not Available Not Available Not Available ProAir RespiClic k 90 mcg/actua tion breath activated INHALE 1-2 PUFFS 4 TIMES A DAY NEEDED active Not Available Not Available No t Available Breo Ellipta 200 mcg-25 mcg/dose powder for inhalatio n INHALE 1 PUFF DAILY. RINSE MOUTH AFTER USE active Not Available Not Available No t Available Wixela Inhub 100 mcg-50 mcg/dose powder for inhalatio n INHALE 1 PUFF BY MOUTH 2 TIMES PER DAY active Not Available Not Available No t Available Ozempic 1 mg/dose (4 mg/3 mL) subcutane ous pen injector INJECT 1MG EVERY WEEK FOR 4 WEEKS active Not Available Not Available No t Available BinaxNOW COVID-19 Ag Self Test kit REFER TO PACKAGE DIRECTIO NS active Not Available Not Available No t Available Alive Hair, Skin and Nails active Not Available Not Available Not Available Ozempic 2 mg/dose (8 mg/3 mL) subcutane ous pen injector INJECT 2 (TWO) MG SUBCUTAN EOUSLY WEEKLY active Not Available Not Available No t Available Paxlovid 150 mg-100 mg tablets in [...] Updated DateTime 08/24/2022 146.05 cm 40.2 kg/m2 53015.96 g 131 mm[Hg] 77 mm[Hg] Renetta Jessica [facility] 3 10:30:34 Date Recorded Body height Body mass index (BMI) Body weight Systolic blood pressure Diastolic blood pressure Provider Name and Address Organization Details Last Updated DateTime 08/27/2023 146.05 cm 43 kg/m2 97440.66 g 116 mm[Hg] 73 mm[Hg] Ramila Arroyo [facility] 09:28:35 Social History Question Answer Notes LastModified by Organizat ion Details LastModified Time Tobacco Smoking Status Never Smoker Renetta Jessica balwinder, [facility] 08/24/2022 10:32:24 Are You Blind Or Do You Have Difficulty Seeing? No [email or web address] Information n ot available 08/27/2023 In The 14 Days Before Symptom Onset, Have You Had Close Contact With A Laboratory-confirm ed COVID-19 While That Case Was Ill? No [email or web address] Information n ot available 08/27/2023 In The 14 Days Before Symptom Onset, Have You Had Close Contact With A Person Who Is Under Investigation For COVID-19 While That Person Was Ill? No [email or web address] Information not available 08/27/2023 Have You Been To An Area Known To Be High Risk For COVID-19? No [email or web address] Information not available 08/27/2023 Are You Deaf Or Do You Have Serious Difficulty Hearing? No [email or web address] Information not available 08/27/2023 Do You Use Your Seat Belt Or Car Seat Routinely? Yes [email or web address] Information not available 08/27/2023 Do You Have Smoke And Carbon Monoxide Detectors In Your Home? Yes [email or web address] Information not available 08/27/2023 Do You Use Sunscreen Routinely? Yes [email or web address] Information not available 08/27/2023 Do You Have Difficulty Walking Or Climbing Stairs? No [email or web address] Information not available 08/27/2023 Sex: Unknown Functional Status Question Answer Note LastModified by Organizat ion Details LastModified Time Are you able to walk? YESWOREST [email or web address] Information not available 08/27/2023 Are you able to care for yourself? Yes [email or web address] Information not available 08/27/2023 Do you have difficulty dressing or bathing? No [email or web address] Information not available 08/27/2023 Mental Status None recorded. Family History Relationship Description Onset Age of this Age Resolved Age Notes LastModified by Organization Details LastModified Time Sister Anemia Not available 08/24/2022 10:42:18 Sister Asthma Not available 08/24/2022 10:42:29 Sister Hyperlipidem ia [email or web address] Not available 2023 09:07:40 Maternal Grandmother Malignant tumor of breast Not available 2022 10:42:43 Paternal Aunt Malignant tumor of cervix Not available 2022 10:42:57 Paternal Aunt Malignant tumor of colon Not available 2022 10:43:17 Mother Heart disease Not available 2022 10:43:31 Mother Hyperlipidem ia Not available 2023 09:07:40 Father Heart disease Not available 2022 10:43:31 Father Hyperlipidem ia Not available 2023 09:07:40 Brother Hyperlipidem ia [email or web address] Not available 2023 09:07:40 Medical History Condition [...] SNOMED-CT Code Diagnosis ICD10 Code Diagnosis Note [id number] Harsha Carcamo MD [place] [address] [address] 08/24/2022 09:52:03 08/24/2022 11:08:23 Gynecologic examination 49908115 Z01.419 Annual gynecologi mira exam performed. Patient [...] Cholestero l - done Pap - today [id number] Harsha Carcamo MD [place] [address] [address] 08/27/2023 09:06:29 08/27/2023 10:27:07 Gynecologic examination [id number] Z01.419 Annual gynecologi mira exam performed. Patient [...] Recorded Advance Directives Directive None Recorded Payers Insurance Date Sequence Insurance Name Policy Number Policy Tate Covered Member ID Tate Member ID Guarantor Name 08/28/2024 1 [employer] (MEDICARE REPLACEMENT/ ADVANTAGE - PPO) [id number] Cyndee Salazar [id number] Cyndee Salazar Notes Date Note Type Note Provider Name and Address Organization Details Recorded Time 08/24/2022 text/html Annual GYNReport ed bypatient.History:n o gynecologic complaints Urinary symptoms:No hematuria Vulva:No genital lesion Vagina:Normal vaginal discharge Breast:No breast pain; No breast lump Menopausal Symptoms:No menopausal symptoms Psychological symptoms:No depression; No anxiety Preventive measures:Encourage self breast examination; Encourage regular exercise Harsha Carcamo MD [address], [place], [address], [facility] 08/24/2022 11:08:22 08/27/2023 text/html Annual GYNReport [...] exercise Harsha Carcamo MD [address], [place], [address], [facility] 08/27/2023 10:19:54 OBGyn Episode Ob Episode Information Episode Created Date Number of Fetuses Patient Bloodtype Patient rh Status Prepregnancy Weight lbs Domestic Partner Domestic Partner Phone Father Name Care Manager Cna Status 08/25/19 23 1 CLOSED Fetus Data First Name Last Name Admitted to NICU Weight (g) Sex Living Outcome Pediatric Complications Fetus ID Race Codes Race Delivery Type , Spontane ous [id number] Myron Calculation Initial Myron Date Initial Exam [...] Domestic Partner Domestic Partner Phone Father Name Care Manager Cna Status 08/23/19 23 1 CLOSED Fetus Data First Name Last Name Admitted to NICU Weight (g) Sex Living Outcome Pediatric Complications Fetus ID Race Codes Race Delivery Type 4876.11 4 M Full Term [id number] Primary Myron Calculation Initial Myron Date Initial [...] Domestic Partner Domestic Partner Phone Father Name Care Manager Cna Status 08/23/19 23 1 CLOSED Fetus Data First Name Last Name Admitted to NICU Weight (g) Sex Living Outcome Pediatric Complications Fetus ID Race Codes Race Delivery Type 3543.46 0704 M Full Term [id number] Repeat Myron Calculation Initial Myron Date Initial [...]
--- OUTSIDE RECORDS SUMMARY | 2024-10-05 13:08 | XMS_ITS | Referral Summary ---
Author Organization [facility] Address [address] [place] [address] Care Team Providers Care Desk Attendant Name Role Phone Helio Hunter MD Primary Care Provider Encounters Date Type Department Care Team Description 07/14/2024 Telephone [facility] Cardiology [address] [place] [address] 8th [place] [address] [place] [address] Kev Snell MD 07/05/2024 3:45 PM CDT Lab [facility] Endocrinology Metabolism and Lipid [address] [place] [address] [place] [address] [place] [address] Coronary artery calcification; Family history of premature CAD; Iron deficiency 07/05/2024 Results Follow-Up [facility] Cardiology [address] [place] [address] [place] [address] [place] [address] Kev Snell MD ECG 12 lead, Lipoprotein a (LPa), Ferritin 07/05/2024 2:30 PM CDT Office Visit [facility] Cardiology [address] [place] [address] [place] [address] [place] [address] Kev Snell MD Coronary artery calcification (Primary [...] vaginal cream Insert into the vagina. Active lwpda-0-nvy-epa -dpa-fish oil 1,050-1,200 mg capsule Take 1 [...] 03/09/20 22 Active omega3/dha/epa/ fish oil/vit D3 (jk-0-dvo-epa-f vanessa oil-vit D3) 120 mg-180 mg -1,000 [...] on file Legal Sex Female 8:00 PM BUTT PRESSER Gender Identity Not on file Sexual Orientation Not on file Last Filed Vital Signs Vital Sign Reading Time Taken Comments Blood Pressure 128/84 07/05/2024 2:25 PM CDT Pulse 83 07/05/2024 2:25 PM CDT Temperature 36.2 C (97.1 F) 07/01/2021 10:06 AM BUTT PRESSER Respiratory Rate 16 07/01/2021 10:06 AM BUTT PRESSER Oxygen Saturation 96% 07/05/2024 2:25 PM CDT [...] Read Routine (OP Routine) 02/28/2018 8:56 AM BUTT PRESSER Encounter for screening mammogram for malignant neoplasm of breast BONE MINERAL DENSITY 12/24/2014 from Last 3 Months or Most Recently Relevant to Health Maintenance Results * Lipoprotein a (LPa) (07/05/2024 3:49 PM CDT) Pathologist [facility] Lipoprotein (A) 15.7 <=75.0 nmol/L [facility] Comment: An LP(a) level >100 nmol/L is [...] FDA, although they are provided by the timber poisoner and widely accepted as the preferred units for reporting. [facility] is regulated under CLIA as qualified to perform high-complexity testing. Blood 07/05/2024 3:49 PM CDT 07/05/2024 4:11 PM CDT us Kev Snell MD LAB BLOOD ORDERABLES Final Re sult [facility] * Ferritin (07/05/2024 3:49 PM CDT) Pathologist [facility] Ferritin 66.1 10.0 - 291.0 ng/mL [facility] Blood 07/05/2024 3:49 PM CDT 07/05/2024 4:11 PM CDT us Kev Snell MD LAB BLOOD ORDERABLES Final Re sult [facility] * ECG 12 lead (07/05/2024 2:21 PM CDT) us Kev Snell MD ECG ORDERABLES Edited Result - Final * Screening Mammogram Bilateral W Caryn (02/28/2018 8:56 AM BUTT PRESSER) Anatomical Region Laterality Modality Breast Bilateral Digital Radiogra phy Narrative 03/03/2018 2:09 PM BUTT PRESSER Mammogram Technique: Bilateral Digital Breast Tomosynthesis, Bilateral C-view 2D Screening mammogram. Views obtained: bilateral craniocaudal and bilateral mediolateral oblique. Computer Aided Detection was performed. Mammogram Findings: The present examination has been compared to prior imaging studies performed at [facility] on 11/26/2014, 12/02/2015 and 12/04/2016. There are [...] compared to prior imaging studies performed at [facility] on 11/26/2014, 12/02/2015 and 12/04/2016. There are scattered areas of fibroglandular density. There is no suspicious abnormality in either breast. Impression: Annual screening mammography is recommended. OVERALL FINAL ASSESSMENT: BI-RADS CATEGORY 1: Negative. us Steff [facility] IMG MAMMO PROCEDURES Final Result * BONE MINERAL DENSITY (12/24/2014) Anatomical Region Laterality Modality Radiographic Shannan ging Narrative 12/24/2014 Ordered by an unspecified provider. us Historical Provider MD [facility] DXA PROCEDURES Final Result from Last 3 Months or Most Recently Relevant to Health Maintenance Insurance AETNA MEDICARE [facility] MEDICARE Address: [address] [place] [address] UHC MEDICARE ADVANTAGE [facility] MED[facility] Address: [address] [address] [place] [address] Care Teams Desk Attendant Relationship Specialty Start Date End Date Helio Hunter MD PCP - General Family Medicine 10/25/18
== END 2024-10-05 12:42 | disposition home or self-care (01) ==
LOC: CHSIMG 12:43
PROVIDERS: PCP Family Medicine; Visit Provider Physician Assistant
DX: M25.552 Pain in left hip (principal)
CPT/HCPCS: 73502

== ENCOUNTER 2025-01-01 12:45 | Outpatient (CLI) | payer MEDICARE, SELFPAY ==
--- NOTE | ~2025-01-01 | MM_ITS ---
EXAMINATION: MM screening naren BI w jose carlos HISTORY: Screening TECHNIQUE: Craniocaudal and mediolateral oblique 3-D tomosynthesis images were obtained and synthetic 2-D images were generated. CAD analysis was submitted and interpreted. COMPARISON: Comparison to multiple prior studies sequentially, with oldest reviewed study dated , 02/06/2020 BREAST PARENCHYMAL COMPOSITION: There are scattered areas of fibroglandular density. FINDINGS: There is no evidence of suspicious mass, calcification, or architectural distortion to suggest malignancy in either breast. IMPRESSION: 1. No mammographic evidence of malignancy. 2. Recommend routine screening mammography in one year. BI-RADS Category 1: Negative Reviewed, dictated and finalized at location B.
--- OUTSIDE RECORDS SUMMARY | 2025-01-01 12:51 | XMS_ITS | Clinical Summary ---
Author Organization [facility] Address [address] [place] [address] Care Team Providers Care Bolter Helper Name Role Phone Helio Hunter MD Primary Care Provider [phone] Source Comments [facility],non-owned Affiliates and Associated Physician Practices is amultiple site organization consisting of ambulatory clinics and hospital sitesin [place], [place], [place] and [place]. This disclosure is being madepursuant to the Care Everywhere program and may not contain all information available regarding this patient. Last updated 18.[facility] Allergies Active Allergy Reactions Criticality Noted Date [...] daily Active vitamin D, ergocalciferol , (DRISDOL) 64470 UNIT capsule Take 1 (one) capsule by mouth every 7 days Active magnesium oxide (MAG-OX) 400 MG tablet Take 1 (one) tablet by mouth once daily Active atorvastatin (LIPITOR) 20 MG tablet Take 1 (one) tablet by mouth at bedtime Active Acetylcarnitin e HCl (Tuyndl-B-Zxad itine HCl) POWD Yhwypt-U-Hthcxrtib A ctive SYRINGE-NEEDLE , DISP, 3 ML [...] 2 Active Alpha-Lipoic Acid 300 MG Active [place]akes-3 Fatty Acids ([place]akes-3 Fish Oil) 500 MG Take 1,200 mg [...] on file Legal Sex Female 7:32 AM MARKETING ADMINISTRATIVE ASSISTANT Gender Identity Not on file Sexual Orientation Not on file 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, 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 Not on file Not on file Not on file Last Filed Vital Signs Vital Sign Reading Time Taken Comments Blood Pressure 126/76 06/01/2022 12:58 PM MARKETING ADMINISTRATIVE ASSISTANT Pulse 77 06/01/2022 12:58 PM MARKETING ADMINISTRATIVE ASSISTANT Temperature 36.9 C (98.4 F) 09/20/2018 7:51 AM CDT Respiratory Rate 11 09/20/2018 9:33 AM CDT Oxygen Saturation 99% 09/20/2018 9:31 AM CDT Inhaled Oxygen Concentration - - Weight 91.2 kg (201 lb) 06/01/2022 12:58 PM MARKETING ADMINISTRATIVE ASSISTANT Height 154.9 cm (5' 1) 06/01/2022 12:58 PM MARKETING ADMINISTRATIVE ASSISTANT Body Mass Index 37.98 06/01/2022 12:58 PM MARKETING ADMINISTRATIVE ASSISTANT Plan of Treatment Health Maintenance Due Date Last Done Comments BONE DENSITY TESTING 1950 HEPATITIS C SCREENING 04/10/1966 DTAP/TDAP/TD VACCINES (1 - Tdap) 1967 PNEUMOCOCCAL VACCINE 50+ (1 of 1 - PCV) 1998 ZOSTER VACCINE (1 of 2) 1998 Respiratory Syncytial Virus (RSV) Vaccine Pt: or over 60 yrs (1 - 1-dose 75+ series) 2023 DEPRESSION SCREENING 04/26/2024 MEDICARE AWV CALENDAR YEAR 2024 COVID-19 VACCINE (2023-2 5 season) 2024 INFLUENZA VACCINE (#1) 2024 6, 04/26/2012 HEPATITIS B VACCINE Aged Out No [...] patient's age to complete this topic Insurance [facility] MANAGED MEDICARE [facility]V [facility] Advance Directives Documents on File Type Date Recorded Patient [place] Expl anation Adv Directive/Living Will/POA 12/05/2010 12:09 PM Care Teams Bolter Helper Relationship Specialty Start Date End Date Helio Hunter MD [address] [place] [address] PCP - General 05/08/22
--- OUTSIDE RECORDS SUMMARY | 2025-01-01 12:51 | XMS_ITS | Clinical Summary ---
Author Organization [facility] Address [address] [place] [address] Care Team Providers Care Orthopaedic Surgeon Name Role Phone Helio Hunter MD Primary Care Provider [phone] Allergies Active Allergy Reactions Criticality Noted Date [...] vaginal cream Insert into the vagina. 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 Gender Identity Not on file Sexual Orientation Not on file Obstetrics History Last Filed Vital Signs Vital Sign Reading Time Taken Comments Blood Pressure 128/84 07/05/2024 2:25 PM CDT Pulse 83 07/05/2024 2:25 PM CDT Temperature 36.2 C (97.1 F) 07/01/2021 10:06 AM PLAYGROUND WORKER Respiratory Rate 16 07/01/2021 10:06 AM PLAYGROUND WORKER Oxygen Saturation 96% 07/05/2024 2:25 PM CDT [...] Pneumococcal vaccine 65+ (2 of 2 - PPSV23, PCV20, or PCV21) 03/25/2015 01/28/2015 Osteoporosis Screening-Bone Density Scan 12/24/2016 12/24/2014 Influenza Vaccine (#1) 2024 9, 01/24/2018, 12/25/2017, Additional history exists Hepatitis B Screening Completed 03/29/2017 , 11/03/2016, 10/05/2016 Breast Cancer Screening-Mammogram Discontinued 02/28/2018, 12/04/2016, 12/04/2016, Additional history exists Zoster Vaccine Completed 03/03/2019, 11/25, 04/26/2013 Procedures Procedure Name Priority Date/Time Associated Diagnosis Comments SCREENING MAMMOGRAM BILATERAL W CARYN Schedule Routine, Read Routine (OP Routine) 02/28/2018 8:56 AM PLAYGROUND WORKER Encounter for screening mammogram for malignant neoplasm of breast BONE MINERAL DENSITY 12/24/2014 from Last 3 Months or Most Recently Relevant to Health Maintenance Results * Screening Mammogram Bilateral W Caryn (02/28/2018 8:56 AM PLAYGROUND WORKER) Anatomical Region Laterality Modality Breast Bilateral Digital Radiogra phy Narrative 03/03/2018 2:09 PM PLAYGROUND WORKER Mammogram Technique: Bilateral Digital Breast Tomosynthesis, Bilateral C-view 2D Screening mammogram. Views obtained: bilateral craniocaudal and bilateral mediolateral oblique. Computer Aided Detection was performed. Mammogram Findings: The present examination has been compared to prior imaging studies performed at [facility] on 11/26/2014, 12/02/2015 and 12/04/2016. [...] compared to prior imaging studies performed at [facility] on 11/26/2014, 12/02/2015 and 12/04/2016. There are scattered areas of fibroglandular density. There is no suspicious abnormality in either breast. Impression: Annual screening mammography is recommended. OVERALL FINAL ASSESSMENT: BI-RADS CATEGORY 1: Negative. Steff MOLINA IMG MAMMO PROCEDURES Final Result * BONE MINERAL DENSITY (12/24/2014) Anatomical Region Laterality Modality Radiographic Shannan ging Narrative 12/24/2014 Ordered by an unspecified provider. Historical Provider MD ACEVES DXA PROCEDURES Final Result from Last 3 Months or Most Recently Relevant to Health Maintenance Insurance [facility] [id number] [facility] [place] [id number] Care Teams Orthopaedic Surgeon Relationship Specialty Start Date End Date Helio Hunter MD PCP - General Family Medicine 10/25/18
--- OUTSIDE RECORDS SUMMARY | 2025-01-01 12:51 | XMS_ITS | Encounter Summary ---
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
--- OUTSIDE RECORDS SUMMARY | 2025-01-01 12:51 | XMS_ITS | Encounter Summary ---
Author Organization [facility] Address [address] [place] [address] Phone Care Team Providers Care Environmental Engineering Technician Name Role Phone Helio Hunter MD Primary Care Provider Encounter Details Date Type Department Care Team (Latest Contact Info) Description 10/13/2019 Orders Only [facility] Scanning, Provider Social History Tobacco Use Types Packs/Day Years Used Date Smoking Tobacco: Former Smokeless Tobacco: Never Comments No Sex and Gender Information Value Date Recorded Sex Assigned at Not on file Legal Sex Female 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
--- OUTSIDE RECORDS SUMMARY | 2025-01-01 12:52 | XMS_ITS | Clinical Summary ---
Author Organization [facility] Address [address] [place] [address] Care Team Providers Care Project Eng Name Role Phone Helio Hunter MD Primary Care Provider [phone] Columba Ryder APRN, PRODUCTION PROOFREADER-C Unavailable Julian Stewart MD Unavailable [phone] Kin Gutiérrez MD Unavailable Allergies Active [...] repair 05/12/2021 Coronary artery disease invo lving atka coronary artery of atka heart without angina pectoris 01/21/2020 Obstructive sleep [...] A M CDT Height 147.3 cm (4' 9.99) 08/10/2023 9:10 AM CD T Body Mass [...] - 1-dose 75+ series) 2023 COVID-19 Vaccine (1 - 2023-2 5 season) 2023 ASCVD LDL 08/03/2024 08/04/2023 Meningococcal Vaccine Aged Out 04/06/2017 No galilea amaris eligible based on patient's age to complete this topic Zoster Vaccines Completed 03/03/2019, 12/14/2018, 04/26/2013 Meningococcal B Vaccine Aged Out No l onger eligible based on patient's age to complete this topic RSV Immunizations Under 20 Months Aged Out No longer eligible b ased on patient's age to complete this topic Procedures Procedure Name Priority Date/Time Associated Diagnosis Comments LIPID PANEL Routine 08/04/2023 from Last 3 Months or Most Recently Relevant to Health Maintenance Results * LIPID PANEL (08/04/2023) CHOLESTEROL 138 100 - 199 HDL 63 >39 TRIGLYCERIDES 89 0 - 149 LDL (CALCULATED) 58 0 - 99 VLDL CALCULATION 17 5 - 40 08/04/2023 us Default History Genericprovider LABORATORY Final Result from Last 3 Months or Most Recently Relevant to Health Maintenance Insurance [employer] Advance Directives * Full Code (Latest Code Status on File) Date Activated Date Inactivated Comments 08/10/2023 1:29 PM 08/10/2023 3:59 PM Care Teams Project Eng Relationship Specialty Start Date End Date Helio Hunter MD [address] [place] [phone] PCP - General FAMILY PRACTICE 11/29/19 Columba Ryder, JONI, PRODUCTION PROOFREADER-C [address] [facility] [address] [place] [address] NURSE PRACTITIONER 05/31/20 Julian Stewart MD [address] [place] [address] Surgeon ORTHOPAEDIC SURGERY 02/17/21 Kin uGtiérrez MD [address] [place] [address] Consulting Physician INTERVENTIONAL CARDIOLOGY 12/07/23
--- OUTSIDE RECORDS SUMMARY | 2025-01-01 12:52 | XMS_ITS | Encounter Summary ---
Author Organization [facility] Address [address] [place] [address] Care Team Providers Care Patient Safety Tech Name Role Phone Helio Hunter MD Primary Care Provider Porfirio Restrepo MD Unavailable Columba Ryder APRN, HEEL SHAVER-C Unavailable [phone] Julian Stewart MD Unavailable [phone] Kin Gutiérrez MD Unavailable Encounter Details Date Type Department Care Team (Late st Contact Info) Description 07/10/2017 Abstract [facility] [address] [place] [address] , Priya Pierson MD Social History Tobacco [...] documented as of this encounter Care Teams Patient Safety Tech Relationship Specialty Start Date End Date Helio Hunter MD [address] [place] [phone] PCP - General FAMILY PRACTICE 11/29/19 Porfirio Restrepo MD [address] [place] [address] Consulting Physician CARDIOVASCULAR DISEASE 11/29/19 Columba Ryder, MILL STENCILER, HEEL SHAVER-C [address] [facility] [address] [place] [address] NURSE PRACTITIONER 05/31/20 Julian Stewart MD [address] [place], [place] [id number] Surgeon ORTHOPAEDIC SURGERY 02/17/21 Kin Gutiérrez MD [address] [place] [address] Consulting Physician INTERVENTIONAL CARDIOLOGY 12/07/23 documented as of this encounter
--- OUTSIDE RECORDS SUMMARY | 2025-01-01 12:52 | XMS_ITS | Encounter Summary ---
Author Organization [facility] Address [address] [place] [address] Care Team Providers Care Job Analysis Manager Name Role Phone Helio Hunter MD Primary Care Provider Porfirio Restrepo MD Unavailable Columba Ryder APRN, NANNY BABYSITTER-C Unavailable Julian Stewart MD Unavailable [phone] Kin Gutiérrez MD Unavailable Encounter Details Date Type Department Care Team (Late st Contact Info) Description 08/10/2023 Abstract [facility] [address] [place] [phone] Porfirio Restrepo MD [address] [place] [address] Social History Tobacco Use Types [...] AM CDT Jad Manzo RN Active * [place] Suicide Severity Rating Scale (Screener/Recent Self-Report) Question [...] this encounter Results * IRON (08/04/2023) Pathologist [facility] IRON 45 27 - 139 IRON SATURATION 13 15 - 55 UNBOUND IRON BINDING CAPACITY 295 118 - 369 IRON BINDING CAPACITY 340 250 - 450 08/04/2023 us Default History Genericprovider LABORATORY Final Result * VITAMIN B-12 (08/04/2023) Pathologist [facility] VITAMIN B12 S/P/B 1,296 232 - 1,245 08/04/2023 us Default History Genericprovider LABORATORY Final Result * HEMOGLOBIN, GLYCOSYLATED (08/04/2023) HGB A1C 6.0 4.8 - 5.6 % 08/04/2023 us Default History Genericprovider LABORATORY Final Result documented in this encounter Visit Diagnoses Not on filedocumented in this encounter Care Teams Job Analysis Manager Relationship Specialty Start Date End Date Helio Hunter MD [address] [place] [address] PCP - General FAMILY PRACTICE 11/29/19 Porfirio Restrepo MD [address] [place] [address] Consulting Physician CARDIOVASCULAR DISEASE 11/29/19 Columba Ryder, MINE FOREMAN, NANNY BABYSITTER-C [address] [facility] [address] [place] [address] NURSE PRACTITIONER 05/31/20 Julian Stewart MD [address] [place] [address] Surgeon ORTHOPAEDIC SURGERY 02/17/21 Kin Gutiérrez MD [address] [place] [address] Consulting Physician INTERVENTIONAL CARDIOLOGY 12/07/23 documented as of this encounter
--- OUTSIDE RECORDS SUMMARY | 2025-01-01 12:52 | XMS_ITS | Encounter Summary ---
Author Organization [facility] Address [address] [place] [address] Care Team Providers Care Lathe Operator Contact Lens Name Role Phone Helio Hunter MD Primary Care Provider [phone] Porfirio Restrepo MD Unavailable Columba Ryder APRN, ALLERGIST-C Unavailable Julian Stewart MD Unavailable [phone] iKn Gutiérrez MD Unavailable [phone] Encounter Details Date Type Department Care Team (Late st Contact Info) Description 08/09/2023 Abstract [facility] [address] [place] [address] Porfirio Restrepo MD [address] [place] [address] Social History Tobacco Use Types [...] AM CDT Jad Manzo RN Active * [place] Suicide Severity Rating Scale (Screener/Recent Self-Report) Question [...] on filedocumented in this encounter Care Teams Lathe Operator Contact Lens Relationship Specialty Start Date End Date Helio Hunter MD [address] [place] [phone] PCP - General FAMILY PRACTICE 11/29/19 Porfirio Restrepo MD [address] [place] [phone] Consulting Physician CARDIOVASCULAR DISEASE 11/29/19 Columba Ryder APRN, ALLERGIST-C [address] [facility] [address] [place] [address] NURSE PRACTITIONER 05/31/20 Julian Stewart MD [address] [place] [address] Surgeon ORTHOPAEDIC SURGERY 02/17/21 Kin Gutiérrez MD [address] [place] [address] Consulting Physician INTERVENTIONAL CARDIOLOGY 12/07/23 documented as of this encounter
--- OUTSIDE RECORDS SUMMARY | 2025-01-01 12:52 | XMS_ITS | Clinical Summary ---
Author Organization [facility] Address [address] [place] [address] Phone Care Team Providers Care Acquisition Associate Name Role Phone Helio Hunter MD Primary Care Provider [phone] Social History Tobacco Use Types Packs/Day Years Used Date Smoking Tobacco: Never Assessed Comments Unknown Sex and Gender Information Value Date Recorded Sex Assigned at Not on file Legal Sex Female 12:25 PM TRIAGE REGISTERED NURSE Gender Identity Not on file Sexual Orientation Not on file Plan of Treatment Health Maintenance Due Date Last Done Comments Hepatitis C Virus (HCV) Screening 1950 TdaP Immunization 1950 Pneumococcal Immunization (5 0+ years) (1 of 1 - PCV) 1998 Zoster Immunization (1 of 2) 1998 Respiratory Syncytial Virus (RSV) Immunization (Adult) (1 - 1-dose 75+ series) 2023 SARS-COV-2 Immunization ( - season) 2023 Influenza Immunization (#1) 2024 Hepatitis B Immunization Aged Out No longer eligible based on patient's age to complete this topic Human Papillomavirus (HPV) Immunization Aged Out No longer eligible b ased on patient's age to complete this topic Meningococcal Immunization (ACWY) Aged Out No longer eligible based on patient's age to complete this topic Rotavirus Immunization Aged Out No lo nger eligible based on patient's age to complete this topic Care Teams Acquisition Associate Relationship Specialty Start Date End Date Helio Hunter MD [address] [place] [address] PCP - General Family Medicine 09/18/16
--- OUTSIDE RECORDS SUMMARY | 2025-01-01 12:52 | XMS_ITS | Encounter Summary ---
Author Organization [facility] Address [address] [place] [address] Care Team Providers Care Cloth Grader Name Role Phone Helio Hunter MD Primary Care Provider Porfirio Restrepo MD Unavailable Columba Ryder APRN, FISHERIES MANAGEMENT BIOLOGIST-C Unavailable [phone] Julian Stewart MD Unavailable [phone] Kin Gutiérrez MD Unavailable [phone] Encounter Details Date Type Department Care Team (Late st Contact Info) Description 07/29/2023 Hospital Orders Only [facility] Boiler Operator Pre/Post [address] [place] [address] Porfirio Restrepo MD [address] [place] [address] Social History Tobacco Use Types [...] on filedocumented in this encounter Care Teams Cloth Grader Relationship Specialty Start Date End Date Helio Hunter MD [address] [place] [phone] PCP - General FAMILY PRACTICE 11/29/19 Porfirio Restrepo MD [address] [place] [address] Consulting Physician CARDIOVASCULAR DISEASE 11/29/19 Columba Ryder, BOOK SALESMAN, FISHERIES MANAGEMENT BIOLOGIST-C [address] [facility] [address] [place] [address] NURSE PRACTITIONER 05/31/20 Julian Stewart MD [address] [place] [address] Surgeon ORTHOPAEDIC SURGERY 02/17/21 Kin Gutiérrez MD [address] [place] [address] Consulting Physician INTERVENTIONAL CARDIOLOGY 12/07/23 documented as of this encounter
== END 2025-01-01 12:46 | disposition home or self-care (01) ==
LOC: CHSIMG 12:46
PROVIDERS: PCP Family Medicine; Visit Provider Family Medicine
DX: Z12.31 Encounter for screening mammogram for malignant neoplasm of breast (principal)
CPT/HCPCS: 77063; 77067

== ENCOUNTER 2025-01-08 14:37 | Outpatient (RCR) | payer MEDICARE, SELFPAY ==
--- NOTE | 2025-01-08 15:24 | OPREHPOC ---
Outpatient Therapy Plan of Care This is a Multidisciplinary Plan of Care that may contain components documented by all disciplines (PT, OT, and ST.) PT Problem 1 PT Problem #1 Knowledge Deficit PT Goal 1 Goal / Goal Update independent and compliant with HEP Target Visit 6 PT Problem 2 PT Problem #2 Impaired Strength PT Goal 1 Goal / Goal Update 4+/5 bilateral hip strength overall 5/5 bilateral knee strength overall Target Visit 12 PT Problem 3 PT Problem #3 Impaired Balance PT Goal 1 Goal / Goal Update tinetti balance to improve by 5 points or better tug to be completed safely in under 10 seconds 5x sit to stand to be completed safely in 10 seconds or less Target Visit 12 PT Problem 4 PT Problem #4 Impaired Gait PT Goal 1 Goal / Goal Update patient to safely ambulation 6 minute walk test for 1100ft or more without rest Target Visit 12 PT Problem 5 PT Problem #5 Impaired Functional Mobility PT Goal 1 Goal / Goal Update no falls in the last 4 weeks patient to report confidence in ambulation and functional activities around the home and community. Target Visit 12
--- NOTE | 2025-01-08 15:24 | PTOPEVAL1 ---
Assessment and note entered by JT File, PT Evaluation Information Assessment Status Evaluation ICD-10 Condition Codes (PT) Abnormalities of gait and mobility R26.9,Weakness R53.1 Onset 01/04/25 Subjective Information patient reports her order says general weakness, but she falls alot. she reports she has shifted her focus to walk slower and pick her feet up. she reports her last fall was about 2.5 weeks ago on the concrete where she was unable to get back up. she reports she used to walk really fast and would catch her feet. however, this last fall she is not sure what happend. she reports she has never used a cane or a walker. she reports she used to walk 8 miles a day (couple years ago). she reports it has been too hot lately to get outside and walk. she reports she is currently not exercising much if at all. Reported Pain Level Pain Score 0: Self Report Assessment PT Clinical Summary mrs. patel is a pleasant 74 yo woman who presents to skilled PT services for evaluation and treatment of generalized weakness and frequent falls. she displays deficits in bilateral hip and LE strength (worse on the R), balance deficits, and postural deficits. continued skilled PT is indicated to improve her objective/functional deficits and progress towards a return to her prior level functional activity performance, safety, and quality of life. Plan of Care Interventions Gait Training,Manual Therapy,Neuro Re-education, Patient/Caregiver Education,Therapeutic Activities ,Therapeutic Exercise PT Services Indicated Yes Treatment Frequency and 3x weekly for 12 visits Duration These treatments will address the objective and functional deficits as defined above. The patient will be advanced safely and appropriately in order for the patient to progress towards his/her prior level of function. Additional exercises will be introduced and as well as a comprehensive home exercise program upon discharge, if needed, ?to ensure carryover of functional gains achieved in the clinic. This treatment plan has been reviewed and agreement upon by the patient.
--- NOTE | 2025-02-05 07:57 | OPREHPOC ---
Outpatient Therapy Plan of Care This is a Multidisciplinary Plan of Care that may contain components documented by all disciplines (PT, OT, and ST.) PT Problem 1 PT Problem #1 Knowledge Deficit PT Goal 1 Goal / Goal Update independent and compliant with HEP Target Visit 6 Progress Met PT Problem 2 PT Problem #2 Impaired Strength PT Goal 1 Goal / Goal Update 4+/5 bilateral hip strength overall -partially met 5/5 bilateral knee strength overall -met Target Visit 12 Progress Partially Met PT Problem 3 PT Problem #3 Impaired Balance PT Goal 1 Goal / Goal Update tinetti balance to improve by 5 points or better - met tug to be completed safely in under 10 seconds - met 5x sit to stand to be completed safely in 10 seconds or less -met Target Visit 12 Progress Met PT Problem 4 PT Problem #4 Impaired Gait PT Goal 1 Goal / Goal Update patient to safely ambulation 6 minute walk test for 1100ft or more without rest Target Visit 12 Progress Met PT Problem 5 PT Problem #5 Impaired Functional Mobility PT Goal 1 Goal / Goal Update no falls in the last 4 weeks -not met patient to report confidence in ambulation and functional activities around the home and community. -met Target Visit 12 Progress Partially Met
--- NOTE | 2025-02-05 07:57 | PTOPDC ---
Assessment and note entered by Amy Bradshaw, PT Evaluation Information Assessment Status Discharge ICD-10 Condition Codes (PT) Abnormalities of gait and mobility R26.9,Weakness R53.1 Onset 01/04/25 Subjective Information Mrs. Salazar reports feeling like she's gained confidence in her ability to navigate her home and community safely. She does still fall occasionally and most recently slid out of her bed when turning over. Despite still falling she is able to get up from the ground by herself whereas she wasn't able to do this before starting therapy . She reports she has focused a lot on picking her feet up and also pays attention more depending on what kinds of shoes she wears each day. Reported Pain Level Pain Score 0: Self Report Assessment PT Clinical Summary Mrs. Salazar has attended 12 skilled PT visits addressing strength and balance. Since beginning therapy she has made good improvements in her TUG time, 5xSTS time, and 6MWT distance and she has met therapeutic goals addressing these impairments . She has also made progress in her LE strength and while she still falls occasionally, she is now able to get up from the ground by herself. She has been independent with her HEP and plans to continue her exercises to maintain her progress. She has met or partially met all therapeutic goals set for her and will be discharged from skilled PT this date. Plan of Care PT Services Indicated No
== END 2025-02-05 18:18 | disposition home or self-care (01) ==
LOC: CHSPT 14:37
PROVIDERS: Visit Provider Physician Assistant
DX: R53.1 Weakness (principal); R26.9 Unspecified abnormalities of gait and mobility
CPT/HCPCS: 97110; 97112; 97161; 97530